=== PATIENT | male | born 1935 | race Caucasian/White ===

== ENCOUNTER 2016-09-06 14:58 | Inpatient (IN) ==
[2016-09-06] MEDS ORDERED: ATROPINE SULFATE PFS IVP PRN (15:43)
[2016-09-06] MEDS ORDERED: TYLENOL PO PRN (15:43)
[2016-09-06] MEDS ORDERED: NITROSTAT SL PRN ×2 (15:43→16:15)
[2016-09-06] MEDS ORDERED: VISTARIL INJ IM PRN (15:43)
[2016-09-06] MEDS ORDERED: MORPHINE 4 MG/ML SYRINGE IVP PRN (15:43)
[2016-09-06] MEDS ORDERED: SODIUM CHLORIDE 500 ML IV STA (15:50)
[2016-09-06] MEDS ORDERED: HUMULIN R SUBCUT PRN (15:51)
[2016-09-06 15:59] LABS: BASOPHILS % (AUTO) 0.8 % (0.0-3.0); EOSINOPHILS # (AUTO) 0.1 K/ul (0.0-0.7); EOSINOPHILS % (AUTO) 1.4 % (0.0-7.0); HEMATOCRIT 31.1 % (42.0-52.0); HEMOGLOBIN 9.9 g/dl (14.0-18.0); LYMPHOCYTES # (AUTO) 1.6 K/uL (0.60-3.4); LYMPHOCYTES % (AUTO) 31.5 (10.0-50.0); MEAN CORPUSCULAR HEMOGLOBIN 30.4 pg (27.0-31.0); MEAN CORPUSCULAR HGB CONC 31.8 (31.8-35.4); MEAN CORPUSCULAR VOLUME 95.4 fl (80.0-94.0); MONOCYTES # (AUTO) 0.4 K/uL (0.4-2.0); MONOCYTES % (AUTO) 8.2 (0-10); NEUTROPHILS # (AUTO) 2.8 K/ul (2.0-6.9); NEUTROPHILS % (AUTO) 56.1; PLATELET COUNT 341 10^3/uL (140-440); RED BLOOD COUNT 3.26 10^6/ul (4.70-6.10); WHITE BLOOD COUNT 4.98 K/ul (4.2-10.2)
[2016-09-06 16:03] VITALS: BMI 28.8
[2016-09-06] MEDS ORDERED: NORCO 5-325 PO PRN (16:15)
[2016-09-06 16:23] LABS: ALBUMIN/GLOBULIN RATIO 0.86; ANION GAP 15.2; BILIRUBIN,TOTAL 0.37 mg/dL (0.00-1.20); BUN/CREATININE RATIO 11.55; CALCIUM 8.8 mg/dL (8.2-10.2); CREATININE 1.99 mg/dL (0.60-1.10); POTASSIUM 4.2 mmol/L (3.5-5.1); TOTAL PROTEIN 6.5 g/dL (5.8-8.1); TROPONIN I 0.02 ng/ml (0.0000-0.4000)
--- NOTE | 2016-09-06 16:50 | DI ---
EXAM: Chest one view HISTORY: Hypertension, hypotension, congestive heart failure COMPARISON: 08/21/2016 TECHNIQUE: Single view of the chest was performed FINDINGS: No airspace consolidation. Biapical scarring. Lungs are hyperinflated. There is no pleu ral effusion or pneumothorax. The heart is top normal in size. The mediastinal contour is unchange d, noting atherosclerosis. There are median sternotomy wires.. There are no acute abnormalities of the bones. IMPRESSION: 1. No acute cardiopulmonary process. 2. Hyperinflated lungs may suggest chronic obstructive pulmonary disease
--- NOTE | 2016-09-06 16:54 | CT ---
EXAM: CT Abdomen without contrast. CT Pelvis without contrast. HISTORY: Abdominal pain, weakness. COMPARISON: 08/10/2016. TECHNIQUE: Multiple axial images of the abdomen and pelvis were obtained without intravenous contra st. Images were reformatted in the coronal plane. FINDINGS: Please note that evaluation of the abdominal and pelvic structures is limited due to lack of intravenous contrast. There has been previous sternotomy. Heart is enlarged. Small nodular densities in posterior left l ower lobe likely due to previous infection/inflammation. Degenerative changes seen in the spine. The liver, gallbladder, pancreas, spleen, and adrenal glands demonstrate normal contour. Right leonides l exophytic cortical lesion on axial image 29 is stable, possibly a cyst. Correlation with ultrasou nd advised. There is right renal cortical atrophy. No hydronephrosis detected. The bowel is normal in course and caliber without evidence for obstruction or inflammatory process. The appendix is normal. Urinary bladder is unremarkable. Clips seen adjacent to the prostate. No free fluid or free air identified. Atherosclerotic calcifications are relatively extensive bilater al iliac artery stents noted. No free fluid or free air identified. Spurring seen in the right ing uinal region which appears stable. Since the prior study, there has been no significant interval change. IMPRESSION: No acute abnormality within the abdomen or pelvis.
[2016-09-06] MEDS: PROTONIX PO SCH (17:12)
[2016-09-06] MEDS: XANAX PO SCH (20:46)
[2016-09-06] MEDS: NEURONTIN PO SCH (20:47)
[2016-09-06] MEDS ORDERED: NAMENDA PO SCH (21:00)
[2016-09-06] MEDS ORDERED: LIPITOR PO SCH (21:00)
[2016-09-06 23:51] LABS: TROPONIN I 0.01 ng/ml (0.0000-0.4000)
[2016-09-07] MEDS: PROTONIX PO SCH (06:13)
[2016-09-07] MEDS ORDERED: ASPIRIN EC PO SCH (08:00)
[2016-09-07] MEDS ORDERED: LEXAPRO PO SCH (09:00)
[2016-09-07] MEDS ORDERED: NON-FORMULARY MEDICATION (Fenofibrate Nanocrystallized [Fenofibrate] 145 MG) PO SCH ×22 (09:00)
[2016-09-07] MEDS ORDERED: PLAVIX PO SCH (09:00)
[2016-09-07] MEDS ORDERED: NAMENDA PO SCH (09:00)
[2016-09-07] MEDS ORDERED: JANUVIA PO SCH (09:00)
[2016-09-07] MEDS ORDERED: CLARITIN PO SCH (09:00)
[2016-09-07] MEDS ORDERED: TRIGLIDE PO SCH (09:00)
[2016-09-07] MEDS ORDERED: ARICEPT PO SCH (09:00)
[2016-09-07] MEDS: XANAX PO SCH (10:44)
[2016-09-07] MEDS: NEURONTIN PO SCH (10:44)
[2016-09-07 12:11] LABS: OCCULT BLOOD INTERNAL QC 1 INTERNAL QC VALID; OCCULT BLOOD INTERNAL QC 2 INTERNAL QC VALID; OCCULT BLOOD INTERNAL QC 3 INTERNAL QC VALID; OCCULT BLOOD SAMPLE 1 POSITIVE (NEGATIVE); OCCULT BLOOD SAMPLE 2 NO SPECIMEN RECEIVED (NEGATIVE); OCCULT BLOOD SAMPLE 3 NO SPECIMEN RECEIVED (NEGATIVE)
[2016-09-07 12:13] LABS: ADD URINE MICROSCOPIC NO; BILIRUBIN,URINE Negative (NEGATIVE); KETONES,URINE Negative (NEGATIVE); LEUKOCYTE ESTERASE ,URINE Negative (NEGATIVE); NITRITE,URINE Negative (NEGATIVE); PROTEIN,URINE Negative (NEGATIVE); URINE, BLOOD Negative (NEGATIVE)
--- NOTE | 2016-09-07 13:00 | PCM.PROG ---
Attending Provider: ATTENDING PROVIDER: Dr. CARLIE ALEXANDER DATE OF SERVICE: 09/07/16 SUBJECTIVE: This 80 year old WHITE/ M was hospitalized 09/06/16. The patient is admitted with hypotension most likely from medications. With fluid bolus, blood pressure became normal. Hemoglobin is steady. Discussed chcf placement with the patient for strengthening, PT/OT. The patient voices understanding and is in agreement. REVIEW OF SYSTEMS: CONSTITUTIONAL: No fever, no chills. ENDOCRINE: No weight loss or weight gain. HEENT: No sinus drainage, no sore throat. CVS: No angina symptoms. No CHF symptoms. No palpitations. No atypical chest pain for CAD. No shortness of breath. RESPIRATORY: No cough, no hemoptysis. GI: No melena. No abdominal pain. No nausea, no vomiting. : No hematuria. No polyuria. SKIN: No rash. No wounds. MUSCULOSKELETAL: No pain. 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 No headache. No double vision. PSYCHIATRIC: Not anxious; no depression. No suicidal thoughts. No homicidal thoughts. PHYSICAL EXAMINATION: GENERAL: Lying in bed in no distress. VITAL SIGNS: Temperature 97.0 F, Pulse 57, Respiratory Rate 20, BP 120/67, Pulse Ox 100% HEENT: Normocephalic, atraumatic. Mucosa is dry, pallor positive. NECK: No JVP, no carotid bruit. No lymphadenopathy. CARDIAC: S1, S2, no S3. No murmur, gallop or regurgitation. LUNGS: Decreased entry. Clear to auscultation. ABDOMEN: Soft, non-tender. Bowel sounds active. No rigidity, guarding or CVA tenderness. EXTREMITIES: No clubbing, cyanosis or edema. NEUROLOGIC: Awake, alert and oriented x3. LYMPHATIC: No palpable lymph nodes SKIN: Not dry. Intact. MUSCULOSKELETAL: No joint swelling. LAB REVIEW: 09/06/16 15:50 09/06/16 15:50 09/06/16 23:10: Total Creatine Kinase 27, Myoglobin 42, Troponin I 0.0100 09/06/16 15:50: WBC 4.98, RBC 3.26 L, Hgb 9.9 L, Hct 31.1 L, MCV 95.4 H, MCH 30.4, MCHC 31.8, RDW Coeff of Tabatha 15.5 H, Plt Count 341, Immature Gran % (Auto) 2.0, Neut % (Auto) 56.1, Lymph % (Auto) 31.5, [place] % (Auto) 8.2, Eos % (Auto) 1.4, Baso % (Auto) 0.8, Immature Gran # (Auto) 0.1, Neut # 2.8, Lymph # 1.6, [place] # 0.4, Eos # 0.1, Baso # 0.0, D-Dimer 1.81, Sodium 139, Potassium 4.2, Chloride 105, Carbon Dioxide 23, Anion Gap 15.2, BUN 23 H, Creatinine 1.99 H, Estimated GFR (MDRD) 32.00, BUN/Creatinine Ratio 11.55, Glucose 62 L, Calcium 8.8, Total Bilirubin 0.37, AST 16, ALT 16, Alkaline Phosphatase 38 L, Total Creatine Kinase 29, Myoglobin 46, Troponin I 0.0200, B-Natriuretic Peptide 162 H , Total Protein 6.5, Albumin 3.0 L, Globulin 3.5, Albumin/Globulin Ratio 0.86 ASSESSMENT: 1. Status post hypotension secondary to medications. 2. COPD. 3. CHF, stable. 4. Hypertension. 5. Dyslipidemia. 6. Osteoarthritis. 7. DJD spine. 8. Anemia, status post recent blood transfusion (last week admission). 9. CAD. 10. CABG. PLAN: 1. Discharge to [place] - will call family to see if there is preference as to which NH. 2. PT/OT evaluate and treat. 3. CBC and CMP in one week. 4. Cardiac and Healthy Diet. 5. Legs elevated when resting. 6. Duonebs twice a day. 7. Lasix every other day. 8. Stool for occult blood prior to discharge. 9. Continue Protonix. Plan and coordination of the patient's care discussed in the presence of Aircraft Painter Apprentice and nurse. CONDITION: STABLE SCRIBED BY: CARLENE BERNSTEIN Hotel Maintenance Worker scribed while in presence of service performed by Dr. CARLIE ALEXANDER on 09/07/16 (0230)
[2016-09-07 14:46] VITALS: BP 101/58; TEMP 98
--- NOTE | 2016-09-07 14:53 | CM.DICTOOL ---
ADMISSION: 09/06/16 14:58 DISCHARGE: 09/07/16 TO [facility] DATE OF SERVICE: 09/07/16 DIAGNOSIS: HYPOTENSION COPD CAD DILATED ISCHEMIC CARDIOMYOPATHY BY HISTORY CHF DYSLIPIDEMIA HYPERTENSION ANEMIA HISTORY OF B12 DEFICIENCY DIABETES, TYPE 2 DIABETIC NEUROPATHY PERIPHERAL ARTERIAL DISEASE COPD (FORMER SMOKER) RENAL AZOTEMIA DEMENTIA DEPRESSION/ANXIETY PROSTATE CANCER ARTHRITIS CABG, 1992 CARDIAC STENT APPLICATION, 1992, 2001 FEM/POP STENTS- 5-10 YEARS AGO RIGHT KNEE SCOPE BILATERAL CATARACT EXTRACTION, 2005 LAST VITALS Temp Pulse Resp BP Pulse Ox 97.4 F L 63 16 120/67 100 09/07/16 10:00 09/07/16 10:00 09/07/16 10:00 09/07/16 10:00 09/07/16 10:00 ACTIVE MEDICATIONS Acetaminophen/Hydrocodone Bitart (Lotus 5-325) 1 tab PO Q8H PRN PRN Reason: pain Alprazolam (Xanax) 0.25 mg PO BID [facility] Last Admin: 09/07/16 10:44 Dose: 0.25 mg Aspirin (Aspirin Ec) 81 mg PO DAILYWM [facility] Last Admin: 09/07/16 10:43 Dose: 81 mg Atorvastatin Calcium (Lipitor) 10 mg PO BEDTIME [facility] Last Admin: 09/06/16 20:47 Dose: 10 mg Clopidogrel Bisulfate (Plavix) 75 mg PO DAILY [facility] Last Admin: 09/07/16 10:44 Dose: 75 mg Donepezil HCl (Aricept) 10 mg PO DAILY [facility] Last Admin: 09/07/16 10:43 Dose: 10 mg Escitalopram Oxalate (Lexapro) 10 mg PO DAILY [facility] Last Admin: 09/07/16 10:44 Dose: 10 mg Fenofibrate (Triglide) 160 mg PO DAILY [facility] Last Admin: 09/07/16 10:44 Dose: 160 mg Gabapentin (Neurontin) 300 mg PO TID [facility] Last Admin: 09/07/16 10:44 Dose: 300 mg Loratadine (Claritin) 10 mg PO DAILY [facility] Last Admin: 09/07/16 10:43 Dose: 10 mg Memantine (Namenda) 10 mg PO DAILY [facility] Last Admin: 09/07/16 10:44 Dose: 10 mg Nitroglycerin (Nitrostat) 0.4 mg SL Q5MIN X 3 DOSES PRN PRN Reason: Chest Pain Pantoprazole Sodium (Protonix) 40 mg PO BIDAC [facility] Last Admin: 09/07/16 06:13 Dose: 40 mg Sitagliptin Phosphate (Januvia) 50 mg PO DAILY [facility] Last Admin: 09/07/16 10:43 Dose: 50 mg ALLERGIES megestrol [From Megace] Adverse Reaction (Mild, Verified 08/21/16 16:24) Diarrhea Penicillins Adverse Reaction (Unknown, Verified 08/21/16 16:24) Unknown procaine [From Novocain] Adverse Reaction (Unknown, Verified 08/21/16 16:24) Unknown NEW PRESCRIPTIONS: DUONEBS BID LASIX 20 MG PO QOD, (MO, WED, FRI, SAT) PROTONIX 40 MG PO BID HUMULIN INSULIN (REGULAR) FOR SLIDING SCALE COVERAGE (DR. PURVISS) PRN SMOKING: FORMER SMOKER DISEASE SPECIFIC EDUCATION: SHORT TERM SENIOR LIVING ADMISSION PT/OT MEDICATIONS NEW MEDICATIONS ACTIVITY LAB REVIEW: 09/06/16 15:50 09/06/16 15:50 09/06/16 23:10: Total Creatine Kinase 27, Myoglobin 42, Troponin I 0.0100 09/06/16 15:50: WBC 4.98, RBC 3.26 L, Hgb 9.9 L, Hct 31.1 L, MCV 95.4 H, MCH 30.4, MCHC 31.8, RDW Coeff of Tabatha 15.5 H, Plt Count 341, Immature Gran % (Auto) 2.0, Neut % (Auto) 56.1, Lymph % (Auto) 31.5, [place] % (Auto) 8.2, Eos % (Auto) 1.4, Baso % (Auto) 0.8, Immature Gran # (Auto) 0.1, Neut # 2.8, Lymph # 1.6, [place] # 0.4, Eos # 0.1, Baso # 0.0, D-Dimer 1.81, Sodium 139, Potassium 4.2, Chloride 105, Carbon Dioxide 23, Anion Gap 15.2, BUN 23 H, Creatinine 1.99 H, Estimated GFR (MDRD) 32.00, BUN/Creatinine Ratio 11.55, Glucose 62 L, Calcium 8.8, Total Bilirubin 0.37, AST 16, ALT 16, Alkaline Phosphatase 38 L, Total Creatine Kinase 29, Myoglobin 46, Troponin I 0.0200, B-Natriuretic Peptide 162 H , Total Protein 6.5, Albumin 3.0 L, Globulin 3.5, Albumin/Globulin Ratio 0.86 09/06/16 12:03: Urine Color Yellow, Urine Clarity Clear, Urine pH 6.0, Ur Specific Fence 1.020, Urine Protein Negative, Urine Glucose (UA) Negative, Urine Ketones Negative, Urine Blood Negative, Urine Nitrite Negative, Urine Bilirubin Negative, Urine Urobilinogen 1.0, Ur Leukocyte Esterase Negative, Stl Occult Blood (IFOB) Positive, Stool Occult Blood #2 No specimen received, Stool Occult Blood #3 No specimen received PLAN: DISCHARGE TO [facility] DR. GRANT/BENJAMIN WILL FOLLOW THE PATIENT IN ONE WEEK DURING USUAL SENIOR LIVING ROUNDS RESUME HOME MEDICATIONS AT THE SENIOR LIVING PER LIST PROVIDED BY THE NURSING STAFF DO NOT GIVE THE LOPRESSOR 50 MG PO DAILY NEW MEDICATIONS: LASIX 20 MG PO QOD (SUN, SUN, SUN AND SATURDAYS) DUONEBS BID PROTONIX 40 MG PO BID HUMULIN R USE FOR DR. 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 HE IS FORGETFUL AND OCCASIONALLY BECOMES DISORIENTED. HE IS REORIENTED EASILY. HE REQUIRES LITTLE ASSISTANCE FOR ADL'S AND CAN FEED HIMSELF. HE WALKS WITH USE OF A CANE OR WALKER AND HAS BECOME UNSTEADY ON HIS FEET. HE CURRENTLY RESIDES AT HOME, BUT IS AGREEBLE FOR SHORT TERM ADMISSION TO [facility] FOR PT/OT. HE WOULD LIKE TO BE ABLE TO RETURN TO HIS HOME WHERE HIS SPOUSE AND DAUGHTER ARE VERY SUPPORTIVE OF HIS NEEDS. HIS SKIN TURGOR IS FAIR AND INTACT. HE HAS NO DECUBITUS ULCERS AT DISCHARGE. HIS V/S ARE NOW WITHIN ACCEPTABLE RANGES. HE IS STABLE FOR DISCHARGE TO THE SENIOR LIVING. WE WILL CONTINUE TO FOLLOW MR. BREWER DURING HIS STAY AT THE SENIOR LIVING. CARLIE ALEXANDER M.D.
--- NOTE | 2016-09-15 07:25 | DS ---
DATE OF SERVICE: 09/07/16 FINAL DIAGNOSIS: 1. HYPOTENSION, MOSTLY MEDICATION RELATED FROM LASIX 2. COPD 3. CHF 4. DILATED ISCHEMIC CARDIOMYOPATHY 5. CAD 6. DYSLIPIDEMIA 7. HYPERTENSION 8. ANEMIA 9. HISTORY OF B12 DEFICIENCY 10. DIABETES MELLITUS TYPE 2 11. DIABETIC NEUROPATHY 12. PERIPHERAL ARTERIAL DISEASE 13. COPD 14. RENAL AZOTEMIA 15. DEMENTIA 16. DEPRESSION/ANXIETY 17. PROSTATE CANCER 18. ARTHRITIS 19. BYPASS SURGERY 20. CARDIAC STENT APPLICATION 21. FEM/POP 22. RIGHT KNEE SCOPE 23. BILATERAL CATARACT EXTRACTION VITAL SIGNS (AT TIME OF DISCHARGE): BP 120/67, respiratory rate 16, heart rate 63, temperature 97.4, saturation 100 % on 2L. DISCHARGE INSTRUCTIONS: Followup appointment MEDICATIONS AT DISCHARGE: 1. [place] 5 mg q.8hr 2. Xanax 3. Aspirin 4. Lipitor 5. Plavix 6. Aricept 7. Lexapro 8. Triglide 9. Neurontin 10. Claritin 11. Namenda 12. Nitrostat 13. Protonix 14. Januvia NEW PRESCRIPTIONS: 1. Duonebs b.i.d. 2. Lasix 20 mg every other day 3. Protonix 40 mg p.o. b.i.d. 4. Humulin Insulin Regular for sliding scale ALLERGIES: MEGACE, PENICILLIN, PROCAINE AND NOVACAINE DIET INSTRUCTIONS: Cardiac and healthy ACTIVITY: He may participate in [facility] activities. PT/OT - please evaluate and treat. Keep legs elevated when resting. SMOKING: Former smoker; has quit. DISEASE SPECIFIC EDUCATION: 1. Short-term [facility] 2. Anemia 3. GI bleed has been discussed 4. Antibiotics and diarrhea discussed 5. Medication side effects discussed HOSPITAL COURSE: This 88-year-old male was recently admitted to the hospital by Dr. Bright for weakness, tiredness, lower extremity weakness, CHF and COPD, found to have severe hypoglycemia which was treated with Dr. Bright did the echocardiogram which showed paradoxical septal wall motion, enlarged right ventricle, left atrial and left ventricular cavity. Left ventricular ejection fraction was 40%. PFTs were done, which showed moderate COPD with FEV1, FVC 66 and at that time the patient was discharged on Lasix. After going home the patient was doing fine for one day then later started feeling weak and tired and had one to two days of diarrhea two to three times then blood pressure dropped to below 100, not able to walk, weak and tired. As the patient was not feeling better, the patient's daughter brought the patient to the office and his systolic blood pressure was 86, rechecked manually, weakness and tiredness. At that time, the patient was admitted to the hospital again. Hemoglobin was 9.9 which was steady. It was 9.5 at time of discharge. D. dimer was negative 1.81. Chemistries : BUN 23, creatinine 1.99. At that time it was 20 and 1.47, a little bit worse than what it was. Stool for occult blood test was done which was positive. The patient did have one unit of blood transfusion on the previous admission and hemoglobin was stable ever since. CT of abdomen and pelvis was done which did not show any acute pathology. Chest x-ray was negative. Once we stopped Lasix and blood pressure medication, the patient was doing well. The blood pressure came back normal and did not have any problems Meanwhile, when we talked with the family, they mentioned that they wanted the patient to have physical and occupational therapy and daughter cannot take care of him as she already has her own problems. At that time, the patient was evaluated for [facility] and was accepted at the [facility] and discharged to the [facility]. TIME SPENT: More than 45 minutes today. PINKY
--- NOTE | 2016-09-15 11:03 | HP ---
DATE OF SERVICE: 09/06/16 REASON FOR HOSPITALIZATION/HISTORY OF PRESENT ILLNESS: Weakness- can't stand. The patient was in hospital last week for same reason with Dr. Bright. Medication change. Blood thinner one time and discontinued. Still not better, not able to walk, weak and tired. Been having diarrhea, two times a day /watery. No blood stools. No nausea/ vomiting REVIEW OF SYSTEMS: CONSTITUTIONAL: No fever, no fatigue. HEENT: No sinus drainage, no sore throat. RESPIRATORY: No cough, no congestion. CARDIOVASCULAR: No atypical chest pain for coronary artery disease. No angina , CHF symptoms, palpitations. Shortness of breath, stable. GASTROINTESTINAL: No melena or abdominal pain. No GERD. GENITOURINARY: No hematuria, no prostatism, no polyuria. ARCHITECTURAL ENGINEER: No blackout, no dizziness, no headache, no double vision. Gait- Wheelchair. MUSCULOSKELETAL: Osteoarthritis pain, no joint swelling. ENDOCRINE: No weight loss, no weight gain. SKIN: Not dry, no rash. PSYCHIATRIC: Anxious, no depression, no suicidal thoughts, no homicidal thoughts. SOCIAL HISTORY: Marital Status: . Alcohol Usage: Some times. Tobacco Usage: Chews. Family History not significant. PAST SURGICAL HISTORY: Coronary artery bypass grafting Status Post Fem Pop MEDICATIONS: Lopressor 50mg PO daily Nitrostat 0.4mg SL Aspirin 81mg PO daily Claritin 10mg PO daily Xanax 0.25mg PO twice a day Aricept 10mg PO daily Hydrocodone-Acetaminophen 5-325 one tablet PO Q 8 hours PRN Gabapentin 300mg PO three times a day Fenofibrate 145mg PO daily Plavix 75mg PO daily Lipitor 10mg PO bedtime Lexapro 10mg PO daily Lasix 20mg PO daily Zestril 50mg PO daily Namenda 10mg PO bedtime Januvia 50mg PO daily ALLERGIES: Megestrol Penicillins Procaine PHYSICAL EXAMINATION: V/S: Pulse 56, blood pressure 80/44/ right arm 80/50 and Oxygen saturation 99% . GENERAL APPEARANCE: Oriented times three. Sitting in wheelchair. HEENT: Normal. Pallor positive. NECK: No JVP, no bruits. RESPIRATORY: Lungs decreased entry. CARDIOVASCULAR: S1, S2, no S3, no murmurs. No cyanosis, clubbing. No ascites. GI/ABDOMEN: No tenderness. Bowel sounds are hyperactive. EXTREMITIES: edema, pulses +1, equal. ARCHITECTURAL ENGINEER: Deep tendon reflexes, sensory, motor and gait all normal. RECTAL: Colonoscopy screening- patient refused/PROSTATE: 11-16 10.51 . ASSESSMENT: 1. Hypotension rule out medication side effects, gastroenteritis or sepsis. 2. COPD 3. Congestive heart failure, ejection fracture 40% 4. Coronary artery disease, status post stent 1992 and 2001 5. Hypertension/ Dilated cardiomyopathy 6. Diabetes mellitus type two labile. 7. Alzheimer's Dementia 8. Anemia 9. Diabetes Mellitus Neuropathy PLAN: 1. Admit to regular floor 2. Telemetry protocol 3. CBC, CMP, U/A, BNP and D-dimer 4. Stool for occult blood 5. Sodium Chloride- normal saline 500ml bolus then Sodium Chloride 6. Stop Lisinopril, Metoprolol and Lasix 7. Protonix 40mg PO twice a day 8. Accu-checks with coverage 9. Resume rest home medication 10. CT of abdomen and pelvis without contrast Patient is DNR TIME SPENT: More than 70 minutes. KEELEYD
== END 2016-09-07 15:39 | DRG 312 ==
LOC: MEDSURG B 14:58
PROVIDERS: ADMIT Emergency Medicine; ATTEND Emergency Medicine
DX: I95.2 Hypotension due to drugs (principal); I42.0 Dilated cardiomyopathy; T50.1X5A Adverse effect of loop [high-ceiling] diuretics, initial encounter; J44.9 Chronic obstructive pulmonary disease, unspecified; I50.9 Heart failure, unspecified; I25.5 Ischemic cardiomyopathy; I25.10 Atherosclerotic heart disease of native coronary artery without angina pectoris; I10 Essential (primary) hypertension; E78.5 Hyperlipidemia, unspecified; D64.9 Anemia, unspecified; E53.8 Deficiency of other specified B group vitamins; E11.40 Type 2 diabetes mellitus with diabetic neuropathy, unspecified; I73.9 Peripheral vascular disease, unspecified; R79.89 Other specified abnormal findings of blood chemistry; F03.90 Unspecified dementia, unspecified severity, without behavioral disturbance, psychotic disturbance, mood disturbance, and anxiety; F41.8 Other specified anxiety disorders; Z79.01 Long term (current) use of anticoagulants; Z79.84 Long term (current) use of oral hypoglycemic drugs; Z79.899 Other long term (current) drug therapy
CPT/HCPCS: 36415; 80053; 81001; 82272; 82550; 82962; 83874; 83880; 84484; 85025; 85379; 93005; 93010

== ENCOUNTER 2016-09-14 06:28 | Emergency (ER) | payer OTHER ==
--- NOTE | 2016-09-14 06:48 | ED.PDOC ---
General Stated Complaint: i fell Time Seen by Physician: 06:46 Mode of Arrival: Ambulance Information Source: EMT Exam Limitations: No limitations Nursing and Triage Documentation Reviewed and Agree: Yes <BRYANT ACOSTA - Last Filed: 09/14/16 06:49> Stated Complaint: @0545-PT IS RESIDENT AT [facility], STATES GOT UP TO GO TO BATHROOM AND FELL FALLING ONTO LEFT SIDE. PT C/O PAIN TO (7th)LEFT RIB AREA AND MID LEFT BACK. DENIES ANY FURTHER PAIN STATES DID NOT HIT HEAD OR HAVE ANY LOC SKIN TEAR TO RIGHT ELBOW DRESSED BY EMS, STATES JUST A LITTLE SORE 97.8 104 20 94 104/59 4/10 FALL/LEFT RIB PAIN[End]PATIENT HAS A DRESSED LACERATION TO THE LEFT ELBOW. <ASHLEY IYER JR - Last Filed: 09/14/16 09:38> ED Provider: [facility]SH[facility] JR [facility] (ASHLEY IYER JR) Chief Complaint: Fall Primary Care Provider: SAGN GRANT [facility] (ASHLEY IYER JR) Trauma/Injury Complaint Exam - Truncal Trauma Complaint/Exam Location of Pain: Reports: Left, Posterior Onset: 12hrs Symptoms Are: Still present Onset of Pain: Reports: Immediate Initial Severity: Mild Current Severity: Mild Mechanism: Reports: Fall Aggravating: Reports: Movement, Deep breathing, Cough Alleviating: Reports: None Associated Signs and Symptoms: Denies: Short of air, Chest pain, Cough, Hematuria, Abdominal pain, Fever, Nausea, Vomiting Related Surgical History: Reports: None Immobilization Removed Post Exam: No Vertebral Tenderness Present: No Vertebral Deformity Present: No Trachial Deviation Present: No JVD Present: No Crepitus Present: No Diminished Breath Sounds: No Reproducible Pain at: left chest wall Muffled Heart Sounds Present: No Paradoxical Chest Wall Movement Present: No Abdominal Guarding Present: No Abdominal Rigidity Present: No Referred Shoulder Pain (Kehr's Sign) Present: No Skin Findings: Present: Contusion, Tenderness Differential Diagnoses: Chest Wall Contusion <BRYANT ACOSTA - Last Filed: 09/14/16 06:49> Review of Systems - Review Of Systems Constitutional: Reports: No symptoms Eyes: Reports: No symptoms Ears, Nose, Mouth, Throat: Reports: No symptoms Respiratory: Reports: No symptoms Cardiac: Reports: No symptoms GI: Reports: No symptoms : Reports: No symptoms Musculoskeletal: Reports: No symptoms Skin: Reports: No symptoms Neurological: Reports: No symptoms Endocrine: Reports: No symptoms Hematologic/Lymphatic: Reports: No symptoms All Other Systems: Reviewed and Negative <CHERYLOliviaBRYANT SERNA - Last Filed: 09/14/16 06:49> Past Medical History - Past Medical History Endocrine: Reports: Unknown Cardiovascular: Reports: Unknown Respiratory: Reports: Unknown Hematological: Reports: Unknown Gastrointestinal: Reports: Unknown Genitourinary: Reports: Unknown Neuro/Psych: Reports: Unknown Musculoskeletal: Reports: Unknown Cancer: Reports: Unknown - Family History Family History: Reports: Unknown - Social History Smoking Status: Former smoker Lives: With family, In Long Term <BRYANT ACOSTA - Last Filed: 09/14/16 06:49> - Past Medical History Endocrine: Reports: DM 2 ([Januvia]50mgPODAILY;[Humulin R]1-100 PRN ), Dyslipidemia ( [Fenofibrate] 145 mg PO DAILY 08/21/16 ; [Lipitor] 10 mg PO BEDTIME 08/21/16) Cardiovascular: Reports: CAD (aspirin plavix), Hypertension (HYPOTENSION; PERIPHERAL VASCULAR DISEASE;;[Zestril] 5 mg PO DAILY), CHF ([Lasix Tab] 20 mg PO MWFSA), Other ([Nitrostat] 0.4 mg SL Q5MIN) Respiratory: Reports: COPD ([Duoneb] 1 vial NEB RTBID), Other ([Claritin] 10 mg PO DAILY) Gastrointestinal: Reports: Other ( [Protonix] 40 mg PO BIDAC) Neuro/Psych: Reports: Anxiety ([Xanax] 0.25 mg PO BID), Depression ([Lexapro] 10 mg PO DAILY), Dementia ( [Aricept] 10 mg PO DAILY 08/21/16 ;;[Namenda] 10 mg PO BEDTIME), Other (ATAXIA ) Musculoskeletal: Reports: Other (Gabapentin 300 mg PO TID 08/21/16;;Hydrocodon- Acetaminophen 5-325) - Surgical History General Surgical History: Reports: CABG (AORTOCORONARY BYPASS GRAFT) - Family History Family History: Reports: Unknown - Social History Lives: In Long Term <ASHLEY IYER JR - Last Filed: 09/14/16 09:38> Physical Exam - Physical Exam Appearance: Well-appearing, No pain distress, Well-nourished Pain Distress: Mild Eyes: ELIAS, EOMI, Conjunctiva clear ENT: Ears normal, Nose normal, Oropharynx normal Neck: Supple Respiratory: Airway patent, Breath sounds clear, Breath sounds equal, Respirations nonlabored Cardiovascular: RRR, Pulses normal, No rub, No murmur GI/: Soft Musculoskeletal: Normal strength, ROM intact, No edema, No calf tenderness Skin: Warm, Dry, Normal color Neurological: Sensation intact, Motor intact, Reflexes intact, Cranial nerves intact, Alert, Oriented Psychiatric: Affect appropriate, Mood appropriate <BRYANT ACOSTA - Last Filed: 09/14/16 06:49> Interpretation - Radiology Interpretation Radiology Interpretation By: Radiologist Radiology Results: Negative Exam Interpreted: CT Scan (head-atroph, C T L P-spine all with djd, pelvis with elsie ililac art stents;thorax-no acute injury-fibrottic changes and MARTI nodules- rec repeat in 4 months) <ASHLEY IYER JR - Last Filed: 09/14/16 09:38> Physician Notification - Case Discussed Physician Notified: dr [email or web address] Time of Notification: 07:00 <BRYANT ACOSTA - Last Filed: 09/14/16 06:49> Critical Care Note - Critical Care Note Total Time (mins): 5 <ASHLEY IYER JR - Last Filed: 09/14/16 09:38> Departure <BRYANT ACOSTA - Last Filed: 09/14/16 06:49> - Departure Time of Disposition: 08:22 (9:25) Pt referred to PMD for follow-up: Yes <ASHLEY IYER JR - Last Filed: 09/14/16 09:38> - Departure Disposition: HOME SELF-CARE Discharge Problem: Falls Contusion Qualifiers: Encounter type: initial encounter Contusion area: thoracic wall Contusion of thoracic wall detail: front wall of thorax Laterality: left Qualifier Code: ( S20.212A) Contusion of left front wall of thorax, initial encounter Skin tear of elbow without complication Qualifiers: Encounter type: initial encounter Laterality: right Qualifier Code: (S51.011A) Laceration without foreign body of right elbow, initial encounter Instructions: Fall Prevention for Older Adults (ED), Skin Tear (ED), Contusion in Adults (ED) Condition: Good Additional Instructions: neurochecks Q 2 hours for 12 hours then daily for two weeks chexck arm daily change dressing if becomes soiled remove dressing if wet and discontinue in 7-10 days resume prior orders recheck PMD one week note nodules on CT chest Allergies/Adverse Reactions: Allergies megestrol [From Megace] Adverse Reaction (Mild, Verified 09/14/16 06:55) Diarrhea Penicillins Adverse Reaction (Unknown, Verified 09/14/16 06:55) Unknown procaine [From Novocain] Adverse Reaction (Unknown, Verified 09/14/16 06:55) Unknown Home Medications: Ambulatory Orders Alprazolam [Xanax] 0.25 mg PO BID 08/21/16 Aspirin [Aspirin EC] 81 mg PO DAILYWM 08/21/16 Atorvastatin Calcium [Lipitor] 10 mg PO BEDTIME 08/21/16 Clopidogrel Bisulfate [Plavix] 75 mg PO DAILY 08/21/16 Donepezil HCl [Aricept] 10 mg PO DAILY 08/21/16 Fenofibrate Nanocrystallized [Fenofibrate] 145 mg PO DAILY 08/21/16 Gabapentin 300 mg PO TID 08/21/16 Hydrocodone/Acetaminophen [Hydrocodon-Acetaminophen 5-325] 1 tab PO Q8H PRN Loratadine [Claritin] 10 mg PO DAILY 08/21/16 Nitroglycerin [Nitrostat] 0.4 mg SL Q5MIN X 3 DOSES PRN 08/21/16 Escitalopram Oxalate [Lexapro] 10 mg PO DAILY #30 tablet 08/24/16 Sitagliptin Phosphate [Januvia] 50 mg PO DAILY 09/06/16 Furosemide [Lasix Tab] 20 mg PO MOWEFRSA #16 tablet 09/07/16 Insulin Regular, Human [Humulin R] 1 - 100 unit SUBCUT DAILY PRN #1 vial Ipratropium/Albuterol Neb [Duoneb] 1 vial NEB RTBID #60 vial.neb 09/07/16 Pantoprazole Sodium [Protonix] 40 mg PO BIDAC #60 tablet. 09/07/16 Glipizide 5 mg PO DAILY 09/14/16 Lisinopril [Zestril] 20 mg PO DAILY 09/14/16 Loperamide HCl [Imodium] 2 mg PO DIRECTED PRN 09/14/16 Metformin HCl 1,000 mg PO BID 09/14/16
[2016-09-14 06:55] VITALS: BP 104/59; TEMP 97.8; BMI 25.6
--- NOTE | 2016-09-14 07:50 | CT ---
EXAM: CT head without contrast. HISTORY: Initial presentation for head trauma due to a fall. COMPARISON: 08/21/2016. TECHNIQUE: Multiple axial images of the brain were obtained from the skull base through the vertex without intravenous contrast. FINDINGS: There is no intracranial hemorrhage or extraaxial collection. The azul-white differentia tion is maintained without evidence for acute large vascular territory infarction. There are areas of periventricular and subcortical white matter low attenuation. The cortical sulci and cerebral ve ntricles are symmetrically enlarged. The basal cisterns are well visualized. There is no hydroceph alus, mass effect, or midline shift. The ethmoid sinuses demonstrate mild mucosal thickening. Othe rwise, the paranasal sinuses and mastoid air cells are clear. The calvarium is intact. Since the p rior study, there has been no significant interval change. IMPRESSION: 1. No acute intracranial abnormality. 2. Chronic small vessel ischemic changes and atrophy.
--- NOTE | 2016-09-14 07:52 | CT ---
EXAM: CT of the cervical spine without contrast History: Trauma. Technique: Multiplanar CT images through the cervical spine were obtained without the administratio n of IV contrast Findings: Atherosclerotic vascular calcifications. Biapical lung scarring. Emphysema seen within the upper lungs. The visualized airway remains patent. No acute fracture or subluxation. Osteopenia. No prevertebral soft tissue swelling. The predental space is not widened. Severe degenerative disc disease at C5-6 with endplate sclerosis and osteoph yte formation. Moderate degenerative disc disease at C6-7. Multilevel bilateral bony neural forami nal narrowing secondary to uncovertebral and facet hypertrophy. Multilevel bilateral bony central c anal stenosis which is no significant and moderate to severe at C5-6 secondary to posterior disc ost eophyte complex. Impression: 1. No acute osseous abnormality of the cervical spine. 2. Degenerative changes with moderate to severe bony central canal stenosis at C5-6.
--- NOTE | 2016-09-14 07:53 | CT ---
EXAM: CT lumbar spine without contrast. HISTORY: Fall with left rib pain and history of prostate cancer COMPARISON: CT abdomen pelvis 09/06/2016 TECHNIQUE: Serial axial images of the spine were obtained from the lower thoracic spine through the pelvis without contrast. These were viewed in multiple planes. FINDINGS: Vertebral bodies demonstrate no compression fracture or subluxation. Vertebral body heig ht and disc space are maintained. There is multilevel scattered facet arthropathy. The posterior p rocesses are unremarkable. The sacroiliac junction is intact. There are anterior disc osteophytes in the lower thoracic spine. L1-L2: Small broad-based disc bulge with no central or neural foraminal narrowing. L2-L3: Broad-based disc bulge and facet arthropathy with mild central and no neural foraminal narrow ing. L3-L4: There is a broad-based disc bulge and facet arthropathy with minimal central and neural luke inal narrowing. L4-L5: There is a broad-based disc bulge, facet arthropathy and ligamentum flavum hypertrophy. This contributes to moderate central and bilateral mild neural foraminal narrowing. L5-S1: Broad-based disc bulge with no central or neural foraminal narrowing. Limited views of the soft tissues demonstrates scattered atherosclerotic disease with a right iliac arterial stent in place. There is mild right lower lobe atelectasis. There is a poorly defined exop hytic low attenuation lesion measuring 0.9 cm from the right kidney with Hounsfield units consistent with a cyst. IMPRESSION: 1. No acute compression fracture or subluxation. 2. Multilevel degenerative disease with central and neural foraminal narrowing most pronounced at L 4-L5 with moderate central and bilateral mild neural foraminal narrowing. If there is further evalu ation clinically indicated, MRI is recommended. 3. Scattered atherosclerotic disease of the right iliac arterial stent and bilateral lower lobe ate lectasis.
--- NOTE | 2016-09-14 07:58 | CT ---
EXAM: CT thoracic spine. HISTORY: Fall. TECHNIQUE: CT thorax without contrast. Detailed axial sections. Coronal and sagittal re-formation s. FINDINGS: Comparison may be made to 08/10/2016. FINDINGS: Bones appear demineralized. No acute fracture involving the thoracic spine is seen. The re is no significant loss of vertebral body height. No spondylolisthesis. Mild to moderate degener ative changes of the spine lead to areas of mild central canal stenosis at the thoracic level, great er at the lower cervical spine level. See also same day CT thorax, CT cervical spine and CT lumbar spine reports. IMPRESSION: No acute fracture or subluxation at the level of the thoracic spine.
--- NOTE | 2016-09-14 07:58 | CT ---
EXAM: CT pelvis without contrast HISTORY: Status post fall. COMPARISON: CT abdomen pelvis 09/06/2016 TECHNIQUE: Serial axial images of the pelvis were obtained without contrast. These were viewed in multiple planes. FINDINGS: There is no displaced fracture of the pelvis. There is mild degenerative disease of the h ip joint spaces with minimal osteophyte formation. There is scattered degenerative disease of the l umbosacral spine. The soft tissues demonstrate atherosclerotic disease with a right iliac arterial stent and a left external iliac stent in place. There is no free air or free fluid. There are meta llic densities in the region of the prostate. Urinary bladder is partially distended. The colon is unremarkable. The appendix is normal. The limited views of the small bowel are normal. IMPRESSION: 1. No acute abnormality or displaced fracture of the pelvis. 2. Arterial stents are in place. 3. Atherosclerotic disease and degenerative disease of the hips and pelvis.
--- NOTE | 2016-09-14 08:11 | CT ---
EXAM: CT THORAX HISTORY: Fall. TECHNIQUE: CT thorax without intravenous contrast. 5-mm axial sections. Coronal and sagittal re-fo rmations. COMPARISON: 08/10/2016 FINDINGS: Heart size is within normal limits. There is moderate atherosclerotic disease. Chronic-appearing interstitial changes diffusely. There is interstitial fibrosis especially in the upper zones with associated paraseptal emphysema. Moderate irregular pleural thickening in the apic es is stable since the recent exam, no older studies were available for comparison. This appearance may represent apical scarring. In the posterior left upper lobe there are to nodular opacities my suring about 0.86 cm, new since the 08/10/2016 exam. These may represent areas of pneumonitis or at electasis. Less likely would malignancy be considered. There is no pulmonary contusion suggested. No pleural fluid or pneumothorax. There is no active vascular congestion. The bones reveal no acute deformity or fracture. See also same day CT thoracic spine, CT cervical s pine, CT lumbar spine and CT abdomen reports. IMPRESSION: 1. No acute thorax injury identified. 2. Irregular pleuroparenchymal thickening in the apices, interstitial fibrosis, paraseptal emphysem a and posterior left upper lobe nodular opacities. Consider follow-up CT thorax in 4 months.
== END 2016-09-14 09:26 | disposition home or self-care (01) ==
LOC: ED 06:28
DX: S20.212A Contusion of left front wall of thorax, initial encounter (principal); S51.011A Laceration without foreign body of right elbow, initial encounter; M54.9 Dorsalgia, unspecified; W19.XXXA Unspecified fall, initial encounter
CPT/HCPCS: 99283

== ENCOUNTER 2016-09-20 07:16 | Outpatient (CLI) | payer OTHER ==
[2016-09-20 07:49] VITALS: BMI 27.1
== END 2016-09-20 07:17 ==
LOC: AMBL 07:16
PROVIDERS: ATTEND Emergency Medicine
DX: M25.551 Pain in right hip (principal); W19.XXXA Unspecified fall, initial encounter

== ENCOUNTER 2016-09-20 07:28 | Emergency (ER) | payer OTHER ==
--- NOTE | 2016-09-20 07:37 | ED.PDOC ---
General ED Provider: Dr. ASHLEY DUMONT JR Chief Complaint: Hip Pain/Injury Stated Complaint: 12:15 FELL AT DETENTION. GETTING TO BATHROOM.ON FLOOR 30 MIN. RIGHT HIP PAIN. BRUISING RIGHT HIP APPROX 4x4cm. SKIN TEAR RIGHT ELBOWwith bandaid patient states occurred today but note present on Sep.[End] 98.1 95 20 94% 119/63 3/10 Time Seen by Physician: 07:40 Mode of Arrival: Ambulance Information Source: Patient Exam Limitations: Dementia Primary Care Provider: SANG GRANT Nursing and Triage Documentation Reviewed and Agree: No Review of Systems - Review Of Systems Constitutional: Reports: Malaise Eyes: Reports: No symptoms Ears, Nose, Mouth, Throat: Reports: No symptoms Respiratory: Reports: No symptoms Cardiac: Reports: Chest pain (baljinder wall pain) GI: Reports: No symptoms : Reports: No symptoms Musculoskeletal: Reports: Joint pain (right hip) Skin: Reports: Bruising Neurological: Reports: No symptoms, Cognitive dysfunction Endocrine: Reports: No symptoms Hematologic/Lymphatic: Reports: No symptoms All Other Systems: Other Past Medical History - Past Medical History Endocrine: Reports: DM 2 ([Januvia]50mgPODAILY;[Humulin R]1-100 PRN ), Dyslipidemia ( [Fenofibrate] 145 mg PO DAILY 08/21/16 ; [Lipitor] 10 mg PO BEDTIME 08/21/16) Cardiovascular: Reports: CAD (aspirin plavix), Hypertension (HYPOTENSION; PERIPHERAL VASCULAR DISEASE;;[Zestril] 5 mg PO DAILY), CHF ([Lasix Tab] 20 mg PO MWFSA), Other ([Nitrostat] 0.4 mg SL Q5MIN) Respiratory: Reports: COPD ([Duoneb] 1 vial NEB RTBID), Other ([Claritin] 10 mg PO DAILY) Hematological: Reports: Unknown Gastrointestinal: Reports: Other ( [Protonix] 40 mg PO BIDAC) Genitourinary: Reports: Unknown Neuro/Psych: Reports: Anxiety ([Xanax] 0.25 mg PO BID), Depression ([Lexapro] 10 mg PO DAILY), Dementia ( [Aricept] 10 mg PO DAILY 08/21/16 ;;[Namenda] 10 mg PO BEDTIME), Other (ATAXIA ) Musculoskeletal: Reports: Other (Gabapentin 300 mg PO TID 08/21/16;;Hydrocodon- Acetaminophen 5-325) Cancer: Reports: Unknown - Surgical History General Surgical History: Reports: CABG (AORTOCORONARY BYPASS GRAFT) - Family History Family History: Reports: Unknown - Social History Smoking Status: Former smoker Hx Substance Use: No Alcohol Screening: Occasionally Physical Exam - Physical Exam Appearance: Well-appearing Pain Distress: Moderate Eyes: ELIAS, EOMI, Conjunctiva clear ENT: Ears normal, Nose normal, Oropharynx normal Neck: Supple Respiratory: Airway patent, Breath sounds clear, Breath sounds equal, Respirations nonlabored Cardiovascular: RRR, Pulses normal, No rub, No murmur GI/: Soft, Nontender, No masses, Bowel sounds normal, No Organomegaly Musculoskeletal: Normal strength, Limited ROM (right arm discomfort) Skin: Warm, Dry, Normal color Neurological: Sensation intact, Motor intact, Reflexes intact, Cranial nerves intact, Alert, Oriented Psychiatric: Affect appropriate, Mood appropriate Interpretation - Radiology Interpretation Radiology Interpretation By: Radiologist Radiology Results: Negative Exam Interpreted: CXR, CT Scan (HEAD AND NECK BUT POSSIBLE RIGHT FIRST RIB FRACTURE- CLINICALLY TENDER OVER FIRST RIB, NOTE NEGATIVE CSPINE AND NO PTX) Xray Comments: QUESTIONABLE FRACTURE MEDIAL RIGHT FIRST RIB Critical Care Note - Critical Care Note Total Time (mins): 5 Course - Course Hematology/Chemistry: 09/20/16 09:45 Orders, Labs, Meds: Lab Review 09/20/16 09:45 BUN 26 H Creatinine 1.92 H Estimated GFR (MDRD) 34.00 Orders Category Date Time Status NPO REMINDER: IMAGING ONCE CARE 09/20/16 09:41 Active IV [ED IV/MEDIPORT/POWERPORT] .ONCE EMERGENCY 09/20/16 10:20 Active BLOOD UREA NITROGEN Stat LAB 09/20/16 09:45 Completed CREATININE WITH GFR Stat LAB 09/20/16 09:45 Completed 0.9 % Sodium Chloride [Saline Flush] MEDS 09/20/16 10:20 Active 1 syr IVF PRN PRN Sodium Chloride 0.9% [Sodium Chloride] 1,000 ml MEDS 09/20/16 10:19 Active IV 200 mls/hr CT CERVICAL SPINE W/O CONTRAST Stat RADS 09/20/16 07:[address] CHEST W/WO CONTRAST Stat RADS 09/20/16 09:[address] HEAD W/O CONTRAST Stat RADS 09/20/16 07:45 Completed HIP, RIGHT 2 VIEWS Stat RADS 09/20/16 07:42 Completed HUMERUS, RIGHT 2 VIEWS Stat RADS 09/20/16 07:42 Completed PELVIS 1 OR 2 VIEWS Stat RADS 09/20/16 07:42 Completed RIBS, UNI W PA CHEST MIN 3V Stat RADS 09/20/16 07:42 Completed Medications Generic Name Dose Route Start Last Admin Trade Name Freq PRN Reason Stop Dose Admin Sodium Chloride 1,000 mls @ 200 mls/hr 09/20/16 10:19 09/20/16 10:55 Sodium Chloride IV 09/20/16 15:18 200 mls/hr .Q5H STA Administration Sodium Chloride 1 syr 09/20/16 10:20 Saline Flush IVF PRN PRN To flush IV Vital Signs: Temp Pulse Resp BP Pulse Ox 09/20/16 07:29 98.1 F 95 H 20 119/63 94 L Departure - Departure Time of Disposition: 12:40 Disposition: HOME SELF-CARE Discharge Problem: Closed rib fracture Qualifiers: Encounter type: initial encounter Rib fracture type: single rib Laterality: right Qualifier Code: (S22.31XA) Fracture of one rib, right side, initial encounter for closed fracture Instructions: Rib Fracture (ED) Condition: Good Pt referred to PMD for follow-up: Yes Additional Instructions: continue home medications pain medication on schedule as ordered encourage deep cough twice a day daily temperature inform PMD if over 101.0 or remaining elevated Allergies/Adverse Reactions: Allergies megestrol [From Megace] Adverse Reaction (Mild, Verified 09/20/16 07:47) Diarrhea Penicillins Adverse Reaction (Unknown, Verified 09/20/16 07:47) Unknown procaine [From Novocain] Adverse Reaction (Unknown, Verified 09/20/16 07:47) Unknown Home Medications: Ambulatory Orders Alprazolam [Xanax] 0.25 mg PO BID 08/21/16 Aspirin [Aspirin EC] 81 mg PO DAILYWM 08/21/16 Atorvastatin Calcium [Lipitor] 10 mg PO BEDTIME 08/21/16 Clopidogrel Bisulfate [Plavix] 75 mg PO DAILY 08/21/16 Donepezil HCl [Aricept] 10 mg PO DAILY 08/21/16 Fenofibrate Nanocrystallized [Fenofibrate] 145 mg PO DAILY 08/21/16 Hydrocodone/Acetaminophen [Hydrocodon-Acetaminophen 5-325] 1 tab PO Q8H PRN Loratadine [Claritin] 10 mg PO DAILY 08/21/16 Nitroglycerin [Nitrostat] 0.4 mg SL Q5MIN X 3 DOSES PRN 08/21/16 Escitalopram Oxalate [Lexapro] 10 mg PO DAILY #30 tablet 08/24/16 Sitagliptin Phosphate [Januvia] 50 mg PO DAILY 09/06/16 Furosemide [Lasix Tab] 20 mg PO MOWEFRSA #16 tablet 09/07/16 Insulin Regular, Human [Humulin R] 1 - 100 unit SUBCUT DAILY PRN #1 vial Ipratropium/Albuterol Neb [Duoneb] 1 vial NEB RTBID #60 vial.neb 09/07/16 Pantoprazole Sodium [Protonix] 40 mg PO BIDAC #60 tablet. 09/07/16 Glipizide 5 mg PO DAILY 09/14/16 Lisinopril [Zestril] 20 mg PO DAILY 09/14/16 Loperamide HCl [Imodium] 2 mg PO DIRECTED PRN 09/14/16 Metformin HCl 1,000 mg PO BID 09/14/16
[2016-09-20 07:49] VITALS: BP 119/63; TEMP 98.1; BMI 27.1
--- NOTE | 2016-09-20 08:26 | DI ---
EXAM: Pelvis AP view HISTORY: Fall, pain FINDINGS: Bones appear demineralized. No acute fracture or joint dislocation is identified. There is at least mild arthropathy of the sacroiliac joints and the hips. Bilateral iliac vascular stents are noted. IMPRESSION: No fracture or dislocation.
--- NOTE | 2016-09-20 08:28 | DI ---
EXAM: Two views of the right humerus. History: Right arm trauma. Findings: No acute fracture or dislocation. The right elbow joint is not well profiled and evaluat ion is limited. Impression: No acute fracture of the right humerus.
--- NOTE | 2016-09-20 08:29 | DI ---
EXAM: Frontal chest, right ribs three views HISTORY: Pain after fall. FINDINGS: No rib fracture is visible. There is no pneumothorax or pleural fluid. Cardiomegaly is noted. Sternotomy wires and aortic atherosclerosis. IMPRESSION: No rib fracture is identified.
--- NOTE | 2016-09-20 08:32 | DI ---
EXAM: Right hip two-view HISTORY: Fall, tender right ribs humerus hip COMPARISON: None FINDINGS: No fracture dislocation. Mild osteoarthritis right hip with joint space narrowing osteop hyte formation. There is atherosclerosis. There is a iliac stent. IMPERSSION: 1. No fracture or dislocation. 2. Mild osteoarthritis.
--- NOTE | 2016-09-20 08:38 | CT ---
EXAM: CT BRAIN HISTORY: Fall, right parietal bruising TECHNIQUE: CT brain without intravenous contrast. 5-mm axial sections with Reformations. COMPARISON: 09/14/2016 FINDINGS: There is generalized atrophy and at least mild chronic microvascular ischemic change. These finding s are stable. Brain otherwise is unremarkable without distinct evidence of hemorrhage or large vesse l distribution recent ischemic infarction. There is no suggestion of acute hydrocephalus or subdura l fluid collection. No mass or mass effect. Cranium is within normal limits. Mastoid air cells are aerated. The visualized paranasal sinuses are clear. IMPRESSION: No acute intracranial process.
--- NOTE | 2016-09-20 08:45 | CT ---
EXAM: CT cervical spine. HISTORY: Fall, neck pain. TECHNIQUE: CT cervical spine without contrast. Detailed axial sections. Coronal and sagittal re-f ormations. COMPARISON: 09/14/2016 FINDINGS: The bones appear demineralized. Questionable fracture of the medial right first rib. Correlate clin ically. No other suspected fracture. Lateral masses of C1 and C2 are normally aligned and the odonto id process is intact. Relatively severe degenerative disc and facet disease throughout although mos t apparent at C4/C5, C5/C6 and C6/C7 where the central canal stenosis is moderate to severe. Incide ntal note of irregular pleuroparenchymal thickening in the lung apices which is likely fibrotic, lashay plasia less likely within the differential. IMPRESSION: 1. No fracture of the cervical spine is identified. 2. Questionable fracture of the medial right first rib. 3. Severe degenerative changes of the spine with central canal stenosis. 4. Irregular pleuroparenchymal thickening of the upper lungs as described.]
[2016-09-20 10:09] LABS: CREATININE 1.92 mg/dL (0.60-1.10)
[2016-09-20] MEDS ORDERED: SODIUM CHLORIDE 1,000 ML IV STA (10:19)
--- NOTE | 2016-09-20 11:47 | CT ---
EXAM: CT Chest with and without contrast. HISTORY: Chest pain following a fall. Abnormal right first rib. COMPARISON: Rib radiographs earlier the same day. Chest CT 09/14/2016. TECHNIQUE: Multiple axial images of the chest were obtained prior to and following intravenous admi nistration of 100 mL of Visipaque 320, low osmolar. Images were reformatted in the sagittal and cor onal planes. FINDINGS: Nondisplaced right lateral sixth rib fracture noted on noncontrast axial image 34. There appear to be old right anterolateral fifth and sixth rib fractures. No osteolytic or osteoblastic lesion identified. Degenerative changes present in the spine. There has been previous sternotomy a nd CABG. Heart is at the upper limits normal in size. Atherosclerotic calcifications are present. No pericardial effusion identified. Nonenlarged mediastinal and hilar lymph nodes are present. Bi apical soft tissue density is stable. There is increased dependent consolidation in both lower lobe s. Calcified granulomatous changes noted. Emphysematous changes are present. No pleural effusion or pneumothorax identified. Limited images of the upper abdomen demonstrate a right renal cyst. IMPRESSION: 1. Nondisplaced right lateral sixth rib fracture. 2. Stable probable biapical scarring. Follow-up CT in 3-6 months recommended for reassessment. 3. Dependent subsegmental atelectasis in both lower lobe, increased.
== END 2016-09-20 15:38 | disposition home or self-care (01) ==
LOC: ED 07:28
DX: S22.31XA Fracture of one rib, right side, initial encounter for closed fracture (principal); S51.011A Laceration without foreign body of right elbow, initial encounter; R07.89 Other chest pain; M25.551 Pain in right hip; S70.01XA Contusion of right hip, initial encounter; Z79.899 Other long term (current) drug therapy; W19.XXXA Unspecified fall, initial encounter; Y92.129 Unspecified place in nursing home as the place of occurrence of the external cause
CPT/HCPCS: 36415; 82565; 84520; 96360; 96361; 99283

== ENCOUNTER 2016-10-06 10:49 | Inpatient (IN) ==
--- NOTE | 2016-10-06 11:27 | ED.PDOC ---
General ED Provider: Dr. ASHLEY DUMONT JR Chief Complaint: Extremity Pain/Injury Stated Complaint: FELL AT [facility] ON THE . HAD PAIN TO RIGHT HIP. 1 WEEK AGO DAUGHTER NOTICED RIGHT LOWER LEG AND ANKLE HAS STARTED SWELLING, UNABLE TO PUT PRESSURE ON THE LEG AND NOW HAS PAIN TO RIGHT GROIN AREA [End]since 09/13/16 97.8 107 18 99% 93/66 9/10 RIGHT GROIN PAIN WITH SWELLING TO RIGHT LOWER LEG AND ANKLE [End]daughter notes nereyda has dementia and is in [facility] post fall did have fever two weeks ago [facility]f request ua per daughter Time Seen by Physician: 11:27 Mode of Arrival: Wheelchair Information Source: Patient, Family, Usp Exam Limitations: No limitations, Dementia Primary Care Provider: SANG GRANT Nursing and Triage Documentation Reviewed and Agree: No Review of Systems - Review Of Systems Constitutional: Reports: Malaise, Weakness Cardiac: Reports: Edema (right >>left) Musculoskeletal: Reports: Joint pain Skin: Reports: Other Neurological: Reports: Cognitive dysfunction All Other Systems: Other Past Medical History - Past Medical History Endocrine: Reports: DM 2 ([Januvia]50mgPODAILY;[Humulin R]1-100 PRN ), Dyslipidemia ( [Fenofibrate] 145 mg PO DAILY 08/21/16 ; [Lipitor] 10 mg PO BEDTIME 08/21/16) Cardiovascular: Reports: CAD (aspirin plavix), Hypertension (HYPOTENSION; PERIPHERAL VASCULAR DISEASE;;[Zestril] 5 mg PO DAILY), CHF ([Lasix Tab] 20 mg PO MWFSA), Other ([Nitrostat] 0.4 mg SL Q5MIN) Respiratory: Reports: COPD ([Duoneb] 1 vial NEB RTBID), Other ([Claritin] 10 mg PO DAILY) Hematological: Reports: Unknown Gastrointestinal: Reports: Other ( [Protonix] 40 mg PO BIDAC) Genitourinary: Reports: Unknown Neuro/Psych: Reports: Anxiety ([Xanax] 0.25 mg PO BID), Depression ([Lexapro] 10 mg PO DAILY), Dementia ( [Aricept] 10 mg PO DAILY 08/21/16 ;;[Namenda] 10 mg PO BEDTIME), Other (ATAXIA ) Musculoskeletal: Reports: Other (Gabapentin 300 mg PO TID 12/19/16;;Hydrocodon- Acetaminophen 5-325) Cancer: Reports: Unknown Other Pertinent Past Medical History: ATAXIA HYPOTENSION PERIPHERAL VASCULAR DISEASE - Surgical History General Surgical History: Reports: CABG (AORTOCORONARY BYPASS GRAFT) - Family History Family History: Reports: Unknown - Social History Smoking Status: Former smoker Hx Substance Use: No Alcohol Screening: None Physical Exam - Physical Exam Appearance: Well-appearing, Thin Pain Distress: Mild Neck: Supple Respiratory: Airway patent Cardiovascular: RRR GI/: Soft, Nontender Musculoskeletal: Normal strength, ROM intact, Edema (right leg below knee left leg less edematous- tender right hip pain on ROM and point tenderness right knee ) Skin: Warm, Dry Neurological: Sensation intact, Alert Psychiatric: Affect appropriate Critical Care Note - Critical Care Note Total Time (mins): 5 Course - Course Hematology/Chemistry: 10/06/16 11:30 10/06/16 11:30 Orders, Labs, Meds: Lab Review 10/06/16 11:30 WBC 9.01 RBC 2.99 L Hgb 9.4 L Hct 29.1 L MCV 97.3 H MCH 31.4 H MCHC 32.3 RDW Coeff of Tabatha 16.2 H Plt Count 272 Immature Gran % (Auto) 0.8 Neut % (Auto) 77.5 Lymph % (Auto) 12.7 Wood % (Auto) 8.0 Eos % (Auto) 0.6 Baso % (Auto) 0.4 Immature Gran # (Auto) 0.1 Neut # 7.0 H Lymph # 1.1 Wood # 0.7 Eos # 0.1 Baso # 0.0 D-Dimer 1.92 Sodium 136 Potassium 5.6 H Chloride 102 Carbon Dioxide 23 Anion Gap 16.6 BUN 42 H Creatinine 3.54 H* Estimated GFR (MDRD) 17.00 BUN/Creatinine Ratio 11.86 Glucose 99 Calcium 9.4 Total Bilirubin 0.77 AST 13 L ALT 18 Alkaline Phosphatase 89 Total Protein 6.6 Albumin 3.2 L Globulin 3.4 Albumin/Globulin Ratio 0.94 Orders Category Date Time Status ADMIT PATIENT INPATIENT .TO [facility] (NON-MONITORED ADMISSION 10/06/16 15: 30 Active BED) ACTIVITY .BR with [facility] CARE 10/06/16 15:31 Active CASE MANAGEMENT CONSULT ONCE CARE 10/06/16 15:32 Active CATHETER INSERTION AND CARE Q4HR CARE 10/06/16 15:31 Active INTAKE & OUTPUT Q8HR CARE 10/06/16 15:30 Active INTAKE & OUTPUT Q8HR CARE 10/06/16 15:31 Active VITAL SIGNS Q4HR CARE 10/06/16 15:31 Active REGULAR DIET DIETARY 10/06/16 Dinner Ordered CBC W/ AUTO DIFF DAILY@0600 LAB 10/07/16 06:00 Ordered CBC W/ AUTO DIFF DAILY@0600 LAB 10/08/16 06:00 Ordered CBC W/ AUTO DIFF DAILY@0600 LAB 10/09/16 06:00 Ordered CBC W/ AUTO DIFF DAILY@0600 LAB 10/10/16 06:00 Ordered CBC W/ AUTO DIFF DAILY@0600 LAB 10/11/16 06:00 Ordered CBC W/ AUTO DIFF DAILY@0600 LAB 10/12/16 06:00 Ordered CBC W/ AUTO DIFF DAILY@0600 LAB 10/13/16 06:00 Ordered CBC W/ AUTO DIFF DAILY@0600 LAB 10/14/16 06:00 Ordered CBC W/ AUTO DIFF DAILY@0600 LAB 10/15/16 06:00 Ordered CBC W/ AUTO DIFF DAILY@0600 LAB 10/16/16 06:00 Ordered CBC W/ AUTO DIFF DAILY@0600 LAB 10/17/16 06:00 Ordered CBC W/ AUTO DIFF DAILY@0600 LAB 10/18/16 06:00 Ordered CBC W/ AUTO DIFF DAILY@0600 LAB 10/19/16 06:00 Ordered CBC W/ AUTO DIFF DAILY@0600 LAB 10/20/16 06:00 Ordered CBC W/ AUTO DIFF DAILY@0600 LAB 10/21/16 06:00 Ordered CBC W/ AUTO DIFF DAILY@0600 LAB 10/22/16 06:00 Ordered CBC W/ AUTO DIFF DAILY@0600 LAB 10/23/16 06:00 Ordered CBC W/ AUTO DIFF DAILY@0600 LAB 10/24/16 06:00 Ordered CBC W/ AUTO DIFF DAILY@0600 LAB 10/25/16 06:00 Ordered CBC W/ AUTO DIFF DAILY@0600 LAB 10/26/16 06:00 Ordered CBC W/ AUTO DIFF Stat LAB 10/06/16 11:30 Completed COMPREHENSIVE METABOLIC PANEL DAILY@0600 LAB 10/07/16 06:00 Ordered COMPREHENSIVE METABOLIC PANEL DAILY@0600 LAB 10/08/16 06:00 Ordered COMPREHENSIVE METABOLIC PANEL DAILY@0600 LAB 10/09/16 06:00 Ordered COMPREHENSIVE METABOLIC PANEL DAILY@0600 LAB 10/10/16 06:00 Ordered COMPREHENSIVE METABOLIC PANEL DAILY@0600 LAB 10/11/16 06:00 Ordered COMPREHENSIVE METABOLIC PANEL DAILY@0600 LAB 10/12/16 06:00 Ordered COMPREHENSIVE METABOLIC PANEL DAILY@0600 LAB 10/13/16 06:00 Ordered COMPREHENSIVE METABOLIC PANEL DAILY@0600 LAB 10/14/16 06:00 Ordered COMPREHENSIVE METABOLIC PANEL DAILY@0600 LAB 10/15/16 06:00 Ordered COMPREHENSIVE METABOLIC PANEL DAILY@0600 LAB 10/16/16 06:00 Ordered COMPREHENSIVE METABOLIC PANEL DAILY@0600 LAB 10/17/16 06:00 Ordered COMPREHENSIVE METABOLIC PANEL DAILY@0600 LAB 10/18/16 06:00 Ordered COMPREHENSIVE METABOLIC PANEL DAILY@0600 LAB 10/19/16 06:00 Ordered COMPREHENSIVE METABOLIC PANEL DAILY@0600 LAB 10/20/16 06:00 Ordered COMPREHENSIVE METABOLIC PANEL DAILY@0600 LAB 10/21/16 06:00 Ordered COMPREHENSIVE METABOLIC PANEL DAILY@0600 LAB 10/22/16 06:00 Ordered COMPREHENSIVE METABOLIC PANEL DAILY@0600 LAB 10/23/16 06:00 Ordered COMPREHENSIVE METABOLIC PANEL DAILY@0600 LAB 10/24/16 06:00 Ordered COMPREHENSIVE METABOLIC PANEL DAILY@0600 LAB 10/25/16 06:00 Ordered COMPREHENSIVE METABOLIC PANEL DAILY@0600 LAB 10/26/16 06:00 Ordered COMPREHENSIVE METABOLIC PANEL Stat LAB 10/06/16 11:30 Completed D-DIMER Stat LAB 10/06/16 11:30 Completed URINALYSIS C & S IF INDICATED Stat LAB 10/06/16 11:22 Uncollected Alprazolam [Xanax] MEDS 10/06/16 15:35 Active 0.25 mg PO BID PRN Aspirin [Aspirin EC] MEDS 10/07/16 08:00 Active 81 mg PO DAILYWM Atorvastatin Calcium [Lipitor] MEDS 10/06/16 21:00 Active 10 mg PO BEDTIME Clopidogrel Bisulfate [Plavix] MEDS 10/07/16 09:00 Active 75 mg PO DAILY Cyanocobalamin (Vitamin B-12) [Vitamin B-12] MEDS 10/06/16 16:00 Active 1,000 mcg IM MONTHLY Donepezil HCl [Aricept] MEDS 10/07/16 09:00 Active 10 mg PO DAILY Dronabinol [Marinol] MEDS 10/06/16 21:00 Active 2.5 mg PO BID Escitalopram Oxalate [Lexapro] MEDS 10/07/16 09:00 Active 10 mg PO DAILY Glipizide [Glucotrol] MEDS 10/07/16 08:00 Active 5 mg PO DAILYWM Hydrocodone Bit/Acetaminophen [[place] 5-325] MEDS 10/06/16 21:00 Active 1 tab PO TID Insulin Regular, Human [Humulin R] MEDS 10/06/16 15:35 Active See Protocol SUBCUT PRN PRN Ipratropium/Albuterol Neb [Duoneb] MEDS 10/06/16 18:00 Active 1 vial NEB RTBID Loratadine [Claritin] MEDS 10/07/16 09:00 Active 10 mg PO DAILY Nitroglycerin [Nitrostat] MEDS 10/06/16 15:35 Active 0.4 mg SL Q5MIN X 3 DOSES PRN Pantoprazole Sodium [Protonix] MEDS 10/06/16 17:00 Active 40 mg PO BIDAC Sitagliptin Phosphate [Januvia] MEDS 10/07/16 09:00 Active 50 mg PO DAILY Sodium Chloride 0.9% [Sodium Chloride] 1,000 ml MEDS 10/06/16 16:00 Active IV 75 mls/hr RESUSCITATION STATUS Routine OTHERS 10/06/16 15:[address] HIP RIGHT WITHOUT CONTRAST Stat RADS 10/06/16 13:46 Completed KNEE, RIGHT 4 VIEWS Stat RADS 10/06/16 13:46 Completed ULTRASOUND VENOUS SCAN KAITLIN LEGS [U/S VENOUS SCAN KAITLIN RADS 10/06/16 11:17 Completed LEGS] Stat Medications Generic Name Dose Route Start Last Admin Trade Name Freq PRN Reason Stop Dose Admin Acetaminophen/Hydrocodone Bitart 1 tab 10/06/16 21:00 [place] 5-325 PO TID JOE Albuterol/Ipratropium 1 vial 10/06/16 18:00 Duoneb NEB RTBID JOE Alprazolam 0.25 mg 10/06/16 15:35 Xanax PO BID PRN Agitation Aspirin 81 mg 10/07/16 08:00 Aspirin Ec PO DAILYWM JOE Atorvastatin Calcium 10 mg 10/06/16 21:00 Lipitor PO BEDTIME JOE Clopidogrel Bisulfate 75 mg 10/07/16 09:00 Plavix PO DAILY [facility] Cyanocobalamin 1,000 mcg 10/06/16 16:00 Vitamin B-12 IM MONTHLY [facility] Donepezil HCl 10 mg 10/07/16 09:00 Aricept PO DAILY [facility] Escitalopram Oxalate 10 mg 10/07/16 09:00 Lexapro PO DAILY [facility] Fenofibrate 160 mg 10/07/16 09:00 Triglide PO DAILY [facility] Glipizide 5 mg 10/07/16 08:00 Glucotrol PO DAILYWM [facility] Sodium Chloride 1,000 mls @ 75 mls/hr 10/06/16 16:00 Sodium Chloride IV .[id number] [facility] Insulin Human Regular 0 unit 10/06/16 15:35 Humulin R SUBCUT PRN PRN Hyperglycemica Protocol Lisinopril 20 mg 10/07/16 09:00 Zestril PO DAILY [facility] Loratadine 10 mg 10/07/16 09:00 Claritin PO DAILY [facility] Metformin HCl 1,000 mg 10/06/16 17:30 Glucophage PO BIDWM [facility] Nitroglycerin 0.4 mg 10/06/16 15:35 Nitrostat SL Q5MIN X 3 DOSES PRN Chest Pain Non-Formulary Medication 2.5 mg 10/06/16 21:00 Dronabinol [Marinol] PO BID [facility] Pantoprazole Sodium 40 mg 10/06/16 17:00 Protonix PO BIDAC [facility] Sitagliptin Phosphate 50 mg 10/07/16 09:00 Januvia PO DAILY [facility] Discontinued Medications Generic Name Dose Route Start Last Admin Trade Name Freq PRN Reason Stop Dose Admin Acetaminophen/Hydrocodone Bitart 7.5 mg 10/06/16 15:48 10/06/16 15:49 [place] 7.5-325 Mg/15 Ml PO 10/06/16 15:49 7.5 mg ONCE STA Administration Vital Signs: Temp Pulse Resp BP Pulse Ox 10/06/16 10:49 97.8 F 107 H 18 93/66 99 Departure - Departure Time of Disposition: 15:30 Disposition: ADMITTED INPATIENT Discharge Problem: Renal failure (ARF), acute on chronic, Pelvic fracture Condition: Fair Pt referred to PMD for follow-up: Yes Allergies/Adverse Reactions: Allergies megestrol [From Megace] Adverse Reaction (Mild, Verified 10/06/16 11:02) Diarrhea Penicillins Adverse Reaction (Unknown, Verified 10/06/16 11:02) Unknown procaine [From Novocain] Adverse Reaction (Unknown, Verified 10/06/16 11:02) Unknown Home Medications: Ambulatory Orders Alprazolam [Xanax] 0.25 mg PO BID 08/21/16 Aspirin [Aspirin EC] 81 mg PO DAILYWM 08/21/16 Atorvastatin Calcium [Lipitor] 10 mg PO BEDTIME 08/21/16 Clopidogrel Bisulfate [Plavix] 75 mg PO DAILY 08/21/16 Donepezil HCl [Aricept] 10 mg PO DAILY 08/21/16 Fenofibrate Nanocrystallized [Fenofibrate] 145 mg PO DAILY 08/21/16 Hydrocodone/Acetaminophen [Hydrocodon-Acetaminophen 5-325] 1 tab PO TID Loratadine [Claritin] 10 mg PO DAILY 08/21/16 Nitroglycerin [Nitrostat] 0.4 mg SL Q5MIN X 3 DOSES PRN 08/21/16 Escitalopram Oxalate [Lexapro] 10 mg PO DAILY #30 tablet 08/24/16 Sitagliptin Phosphate [Januvia] 50 mg PO DAILY 09/06/16 Furosemide [Lasix Tab] 20 mg PO MOWEFRSA #16 tablet 09/07/16 Insulin Regular, Human [Humulin R] 1 - 100 unit SUBCUT DAILY PRN #1 vial Ipratropium/Albuterol Neb [Duoneb] 1 vial NEB RTBID #60 vial.neb 09/07/16 Pantoprazole Sodium [Protonix] 40 mg PO BIDAC #60 tablet. 09/07/16 Glipizide 5 mg PO DAILY 09/14/16 Lisinopril [Zestril] 20 mg PO DAILY 09/14/16 Loperamide HCl [Imodium] 2 mg PO DIRECTED PRN 09/14/16 Metformin HCl 1,000 mg PO BID 09/14/16 Cyanocobalamin (Vitamin B-12) [Cyanocobalamin Injection] 1,000 mcg IJ MONTHLY Dronabinol [Marinol] 2.5 mg PO BID 10/06/16
[2016-10-06 11:37] LABS: BASOPHILS % (AUTO) 0.4 % (0.0-3.0); EOSINOPHILS # (AUTO) 0.1 K/ul (0.0-0.7); EOSINOPHILS % (AUTO) 0.6 % (0.0-7.0); HEMATOCRIT 29.1 % (42.0-52.0); HEMOGLOBIN 9.4 g/dl (14.0-18.0); IMMATURE GRANULOCYTE % (AUTO) 0.8 % (0.0-5.0); LYMPHOCYTES # (AUTO) 1.1 K/uL (0.60-3.4); LYMPHOCYTES % (AUTO) 12.7 (10.0-50.0); MEAN CORPUSCULAR HEMOGLOBIN 31.4 pg (27.0-31.0); MEAN CORPUSCULAR HGB CONC 32.3 (31.8-35.4); MEAN CORPUSCULAR VOLUME 97.3 fl (80.0-94.0); MONOCYTES # (AUTO) 0.7 K/uL (0.4-2.0); NEUTROPHILS % (AUTO) 77.5; PLATELET COUNT 272 10^3/uL (140-440); RED BLOOD COUNT 2.99 10^6/ul (4.70-6.10); WHITE BLOOD COUNT 9.01 K/ul (4.2-10.2)
[2016-10-06 12:03] LABS: ALBUMIN 3.2 g/dL (3.4-5.0); ALBUMIN/GLOBULIN RATIO 0.94; ANION GAP 16.6; BILIRUBIN,TOTAL 0.77 mg/dL (0.00-1.20); BUN/CREATININE RATIO 11.86; CALCIUM 9.4 mg/dL (8.2-10.2); POTASSIUM 5.6 mmol/L (3.5-5.1); TOTAL PROTEIN 6.6 g/dL (5.8-8.1)
[2016-10-06 12:06] LABS: CREATININE 3.54 mg/dL (0.60-1.10)
--- NOTE | 2016-10-06 12:59 | US ---
EXAM: Bilateral lower extremity venous Doppler sonogram. CLINICAL INDICATION: Bilateral lower extremity pain, tenderness and swelling. FINDINGS: There is normal compression, spontaneous color Doppler flow and augmentation demonstrated between th e region of the bilateral trifurcations through to the bilateral common femoral veins. IMPRESSION: No bilateral lower extremity DVT.
--- NOTE | 2016-10-06 14:47 | DI ---
EXAM: RIGHT KNEE. HISTORY: Fall, knee pain. FINDINGS: Right knee four view. Bones appear demineralized. There is moderate osteoarthritis invo lving the medial compartment. No fracture or joint effusion is seen. Surgical clips along the medi al lower thigh and leg. Vascular calcifications. IMPRESSION: Arthritic changes. No acute fracture or dislocation. No joint effusion.
--- NOTE | 2016-10-06 14:57 | CT ---
Exam: CT right hip without contrast. Clinical indication: Fall with right hip pain. TECHNIQUE: Axial unenhanced CT images through the right hip were obtained followed by coronal and s agittal reformats. Findings: The visualized portions of the proximal right femur are intact. The right hip joint is unremarkable . There is a subtle undisplaced fracture involving the right inferior pubic ramus. There may be a sub tle undisplaced fracture involving the right superior pubic ramus near the acetabulum the remainder of the visualized bony structures are unremarkable. There is an endovascular stent within the right external iliac artery. There appears to be a right f em-pop type bypass graft. The remainder the visualized soft tissues are unremarkable. Impression: Undisplaced fracture involving the right inferior pubic ramus and probably a second involving the ri ght superior pubic ramus.
[2016-10-06] MEDS ORDERED: NITROSTAT SL PRN (15:35)
[2016-10-06] MEDS ORDERED: XANAX PO PRN (15:35)
[2016-10-06] MEDS ORDERED: HUMULIN R SUBCUT PRN (15:35)
[2016-10-06] MEDS ORDERED: NORCO 7.5-325 MG/15 ML PO STA ×2 (15:41→15:48)
[2016-10-06] MEDS ORDERED: VITAMIN B-12 IM SCH (16:00)
[2016-10-06 17:35] VITALS: BMI 23.5
[2016-10-06] MEDS: GLUCOPHAGE PO SCH (18:08)
[2016-10-06] MEDS: SODIUM CHLORIDE 1,000 ML IV SCH (18:08)
[2016-10-06] MEDS: PROTONIX PO SCH (18:08)
[2016-10-06] MEDS ORDERED: NON-FORMULARY MEDICATION (Metformin Hcl [Metformin Hcl] 1,000 MG) PO SCH ×22 (21:00)
[2016-10-06] MEDS: LIPITOR PO SCH (22:15)
[2016-10-06] MEDS: NORCO 5-325 PO SCH (22:15)
[2016-10-06] MEDS: DRONABINOL 2.5 MG PO SCH (22:16)
[2016-10-07] MEDS: PROTONIX PO SCH ×2 (06:18→16:43)
[2016-10-07] MEDS: SODIUM CHLORIDE 1,000 ML IV SCH ×3 (06:20→21:50)
[2016-10-07 07:31] LABS: BASOPHILS # (AUTO) 0.1 K/uL (0-0.2); BASOPHILS % (AUTO) 0.7 % (0.0-3.0); EOSINOPHILS # (AUTO) 0.1 K/ul (0.0-0.7); EOSINOPHILS % (AUTO) 1.1 % (0.0-7.0); HEMATOCRIT 27.3 % (42.0-52.0); HEMOGLOBIN 8.8 g/dl (14.0-18.0); IMMATURE GRANULOCYTE % (AUTO) 0.7 % (0.0-5.0); LYMPHOCYTES # (AUTO) 1.1 K/uL (0.60-3.4); LYMPHOCYTES % (AUTO) 14.8 (10.0-50.0); MEAN CORPUSCULAR HEMOGLOBIN 31.5 pg (27.0-31.0); MEAN CORPUSCULAR HGB CONC 32.2 (31.8-35.4); MEAN CORPUSCULAR VOLUME 97.8 fl (80.0-94.0); MONOCYTES # (AUTO) 0.6 K/uL (0.4-2.0); MONOCYTES % (AUTO) 8.5 (0-10); NEUTROPHILS # (AUTO) 5.3 K/ul (2.0-6.9); NEUTROPHILS % (AUTO) 74.2; PLATELET COUNT 243 10^3/uL (140-440); RED BLOOD COUNT 2.79 10^6/ul (4.70-6.10)
[2016-10-07 07:50] LABS: ALBUMIN 2.7 g/dL (3.4-5.0); ALBUMIN/GLOBULIN RATIO 0.87; ANION GAP 14.9; BILIRUBIN,TOTAL 0.66 mg/dL (0.00-1.20); BUN/CREATININE RATIO 15.49; CREATININE 2.13 mg/dL (0.60-1.10); POTASSIUM 4.9 mmol/L (3.5-5.1); TOTAL PROTEIN 5.8 g/dL (5.8-8.1)
[2016-10-07 08:28] LABS: BILIRUBIN,URINE Negative (NEGATIVE); KETONES,URINE Negative (NEGATIVE); LEUKOCYTE ESTERASE ,URINE 3+ (NEGATIVE); NITRITE,URINE Negative (NEGATIVE); PROTEIN,URINE 2+ (NEGATIVE); URINE, BLOOD 3+ (NEGATIVE)
[2016-10-07 08:29] LABS: ADD URINE MICROSCOPIC YES
[2016-10-07] MEDS ORDERED: NON-FORMULARY MEDICATION (Fenofibrate Nanocrystallized [Fenofibrate] 145 MG) PO SCH ×22 (09:00)
[2016-10-07] MEDS ORDERED: ZESTRIL PO SCH (09:00)
[2016-10-07] MEDS: ASPIRIN EC PO SCH (09:22)
[2016-10-07] MEDS: GLUCOPHAGE PO SCH ×2 (09:22→18:05)
[2016-10-07] MEDS: GLUCOTROL PO SCH (09:22)
[2016-10-07] MEDS: ZESTRIL PO SCH (09:23)
[2016-10-07] MEDS: CLARITIN PO SCH (09:23)
[2016-10-07] MEDS: ARICEPT PO SCH (09:23)
[2016-10-07] MEDS: LEXAPRO PO SCH (09:24)
[2016-10-07] MEDS: PLAVIX PO SCH (09:24)
[2016-10-07] MEDS: JANUVIA PO SCH (09:24)
[2016-10-07] MEDS: TRIGLIDE PO SCH (09:24)
[2016-10-07] MEDS: DUONEB NEB SCH ×3 (09:36→17:15)
[2016-10-07] MEDS: NORCO 5-325 PO SCH ×3 (10:08→20:49)
[2016-10-07] MEDS: DRONABINOL 2.5 MG PO SCH ×2 (10:09→20:49)
[2016-10-07] MEDS ORDERED: DECADRON 4 MG/ML SDV IM STA (14:02)
[2016-10-07] MEDS ORDERED: XOPENEX 0.63 MG NEB SCH (14:30)
[2016-10-07] MEDS: LIPITOR PO SCH (20:48)
[2016-10-08] MEDS: DUONEB NEB SCH ×2 (05:03→17:21)
[2016-10-08 05:35] LABS: BASOPHILS % (AUTO) 0.1 % (0.0-3.0); EOSINOPHILS % (AUTO) 0.1 % (0.0-7.0); HEMATOCRIT 25.2 % (42.0-52.0); HEMOGLOBIN 8.1 g/dl (14.0-18.0); IMMATURE GRANULOCYTE % (AUTO) 0.5 % (0.0-5.0); LYMPHOCYTES # (AUTO) 0.9 K/uL (0.60-3.4); LYMPHOCYTES % (AUTO) 12.1 (10.0-50.0); MEAN CORPUSCULAR HEMOGLOBIN 31.5 pg (27.0-31.0); MEAN CORPUSCULAR HGB CONC 32.1 (31.8-35.4); MEAN CORPUSCULAR VOLUME 98.1 fl (80.0-94.0); MONOCYTES # (AUTO) 0.5 K/uL (0.4-2.0); MONOCYTES % (AUTO) 6.8 (0-10); NEUTROPHILS # (AUTO) 6.2 K/ul (2.0-6.9); NEUTROPHILS % (AUTO) 80.4; PLATELET COUNT 240 10^3/uL (140-440); RED BLOOD COUNT 2.57 10^6/ul (4.70-6.10); WHITE BLOOD COUNT 7.77 K/ul (4.2-10.2)
[2016-10-08] MEDS: PROTONIX PO SCH ×2 (05:41→17:20)
[2016-10-08 05:58] LABS: ALBUMIN 2.5 g/dL (3.4-5.0); ALBUMIN/GLOBULIN RATIO 0.83; BILIRUBIN,TOTAL 0.47 mg/dL (0.00-1.20); BUN/CREATININE RATIO 17.12; CALCIUM 8.7 mg/dL (8.2-10.2); CREATININE 1.46 mg/dL (0.60-1.10); TOTAL PROTEIN 5.5 g/dL (5.8-8.1)
[2016-10-08] MEDS: GLUCOPHAGE PO SCH ×2 (08:44→17:20)
[2016-10-08] MEDS: JANUVIA PO SCH (08:44)
[2016-10-08] MEDS: ARICEPT PO SCH (08:45)
[2016-10-08] MEDS: CLARITIN PO SCH (08:45)
[2016-10-08] MEDS: ASPIRIN EC PO SCH (08:45)
[2016-10-08] MEDS: PLAVIX PO SCH (08:45)
[2016-10-08] MEDS: TRIGLIDE PO SCH (08:45)
[2016-10-08] MEDS: ZESTRIL PO SCH (08:45)
[2016-10-08] MEDS: LEXAPRO PO SCH (08:45)
[2016-10-08] MEDS: GLUCOTROL PO SCH (08:46)
[2016-10-08] MEDS: DECADRON 4 MG/ML SDV IM SCH (08:47)
[2016-10-08] MEDS: NORCO 5-325 PO SCH ×3 (08:47→20:23)
[2016-10-08] MEDS: DRONABINOL 2.5 MG PO SCH ×2 (10:05→20:23)
[2016-10-08 19:44] LABS: HEMATOCRIT 28.7 % (42.0-52.0); HEMOGLOBIN 9.5 g/dl (14.0-18.0)
[2016-10-08] MEDS: LIPITOR PO SCH (20:23)
[2016-10-08] MEDS: SODIUM CHLORIDE 1,000 ML IV SCH (20:23)
[2016-10-09 04:43] LABS: BASOPHILS % (AUTO) 0.4 % (0.0-3.0); EOSINOPHILS % (AUTO) 0.4 % (0.0-7.0); HEMATOCRIT 26.8 % (42.0-52.0); HEMOGLOBIN 8.7 g/dl (14.0-18.0); IMMATURE GRANULOCYTE % (AUTO) 0.7 % (0.0-5.0); LYMPHOCYTES # (AUTO) 1.6 K/uL (0.60-3.4); LYMPHOCYTES % (AUTO) 28.9 (10.0-50.0); MEAN CORPUSCULAR HEMOGLOBIN 30.6 pg (27.0-31.0); MEAN CORPUSCULAR HGB CONC 32.5 (31.8-35.4); MEAN CORPUSCULAR VOLUME 94.4 fl (80.0-94.0); MONOCYTES # (AUTO) 0.5 K/uL (0.4-2.0); MONOCYTES % (AUTO) 8.8 (0-10); NEUTROPHILS # (AUTO) 3.3 K/ul (2.0-6.9); NEUTROPHILS % (AUTO) 60.8; PLATELET COUNT 213 10^3/uL (140-440); RED BLOOD COUNT 2.84 10^6/ul (4.70-6.10); WHITE BLOOD COUNT 5.37 K/ul (4.2-10.2)
[2016-10-09 05:04] LABS: ALBUMIN 2.4 g/dL (3.4-5.0); ALBUMIN/GLOBULIN RATIO 0.83; ANION GAP 11.5; BILIRUBIN,TOTAL 0.82 mg/dL (0.00-1.20); CALCIUM 8.5 mg/dL (8.2-10.2); CREATININE 1.23 mg/dL (0.60-1.10); POTASSIUM 4.5 mmol/L (3.5-5.1); TOTAL PROTEIN 5.3 g/dL (5.8-8.1)
[2016-10-09] MEDS: PROTONIX PO SCH ×2 (05:33→17:02)
[2016-10-09] MEDS: DUONEB NEB SCH ×2 (05:34→17:20)
[2016-10-09] MEDS: JANUVIA PO SCH (08:44)
[2016-10-09] MEDS: GLUCOPHAGE PO SCH (08:44)
[2016-10-09] MEDS: ASPIRIN EC PO SCH (08:44)
[2016-10-09] MEDS: NORCO 5-325 PO SCH ×3 (08:45→21:02)
[2016-10-09] MEDS: TRIGLIDE PO SCH (08:45)
[2016-10-09] MEDS: GLUCOTROL PO SCH (08:45)
[2016-10-09] MEDS: ZESTRIL PO SCH (08:45)
[2016-10-09] MEDS: LEXAPRO PO SCH (08:45)
[2016-10-09] MEDS: ARICEPT PO SCH (08:45)
[2016-10-09] MEDS: CLARITIN PO SCH (08:45)
[2016-10-09] MEDS: PLAVIX PO SCH (08:45)
[2016-10-09] MEDS: DECADRON 4 MG/ML SDV IM SCH (08:45)
[2016-10-09] MEDS: DRONABINOL 2.5 MG PO SCH ×2 (09:04→21:02)
--- NOTE | 2016-10-09 11:08 | PN ---
DATE OF SERVICE: 10/08/16 SUBJECTIVE: 80-year-old white male hospitalized with acute renal failure, dehydration, pelvic fracture. The patient is looking a lot better. He is alert, smiling, cutting up, oriented to place and person. REVIEW OF SYSTEMS: CONSTITUTIONAL: No night sweats. No fatigue, malaise, lethargy. No fever or chills. HEENT: Eyes: No visual changes. No eye pain. No eye discharge. ENT: No runny nose. No epistaxis. No sinus pain. No sore throat. No odynophagia. No congestion. RESPIRATORY: Occasional cough, no congestion. No hemoptysis. CARDIOVASCULAR: No angina symptoms. No CHF symptoms. No atypical chest pain for CAD. No palpitations. No shortness of breath. GASTROINTESTINAL: Appetite has improved. No abdominal pain. No nausea or vomiting. No diarrhea or constipation. No hematemesis. No hematochezia. GENITOURINARY: No urgency. No frequency. No dysuria. No hematuria. No obstructive symptoms. No discharge. No pain. No significant abnormal bleeding. MUSCULOSKELETAL: No musculoskeletal pain; no joint swelling. NEUROLOGICAL: No headache. No neck pain. No syncope. No seizures. No dizziness. PSYCHIATRIC: Not anxious. No depression. No suicidal thoughts. No homicidal thoughts. SKIN: No rash. No lesions. No wounds. ENDOCRINE: No unexplained weight loss. No weight gain. HEMATOLOGIC/LYMPHATIC: No anemia. No purpura. No petechiae. No prolonged or excessive bleeding. No palpable lymph nodes. PHYSICAL EXAMINATION: VITAL SIGNS: Temperature 98, pulse 54, respiratory rate 18, BP 110/60, pulse ox 96%. HEENT: Head normocephalic, atraumatic. Eyes: Extraocular muscles are intact. Pupils are equal, round and reactive to light and accommodation. Ears: No lesions. Nose appeared normal. Throat: No exudate or erythema. NECK: Supple. No JVD, no carotid bruit. No lymphadenopathy or thyromegaly. LUNGS: Decreased breath sounds with mild wheeze. Percussion note normal. Chest symmetrical. HEART: S1, S2, no S3. No murmurs. No cyanosis or clubbing. No ascites. Pulses: Dorsalis pedis and posterior tibial pulses +1 to +2 both sides. ABDOMEN: Soft. Nontender. Bowel sounds active. No CVA tenderness. No mass felt. EXTREMITIES: No edema. Full range of motion of all extremities, equal. NEUROLOGIC: No focal deficit. Cranial nerves II through XII are grossly intact. No headache, no double vision or headache. SKIN: Not dry. Intact. Turgor - normal. LYMPHATIC: No palpable lymph nodes/no lymphedema. MUSCULOSKELETAL: Normal joints with no swelling. Muscle tone is normal. LABS: Hemoglobin 8.1, hematocrit 25, WBC 7,700, normal differential. Creatinine 1.4, BUN 25, potassium 5, glucose 68. ASSESSMENT: 1. Acute renal failure resolved, now patient has chronic kidney disease, Stage 3. 2. Anemia. The patient is going to have type and crossmatch 2 units and will give 1 unit. No evidence of GI bleed. The patient's hydration has made his hemoglobin and hematocrit go down. 3. Bronchitis seems to be stable. It seems to be chronic bronchitis with chronic lung disease. 4. The patient's pelvic fracture with pain under control. CONDITION: Stable. TIME SPENT: More than 30 minutes. Plan and coordination of the patient's care discussed in the presence of nurse. PINKY
--- NOTE | 2016-10-09 11:16 | PN ---
DATE OF SERVICE: 10/07/16 SUBJECTIVE: The daughter is present in the room. 80-year-old white male hospitalized with renal failure; also has pelvic fracture. The patient is a lot better, is following me, smiling me. He knows my name. Hydration status seems to have improved. REVIEW OF SYSTEMS: CONSTITUTIONAL: No night sweats. No fatigue, malaise, lethargy. No fever or chills. HEENT: Eyes: No visual changes. No eye pain. No eye discharge. ENT: No runny nose. No epistaxis. No sinus pain. No sore throat. No odynophagia. No congestion. RESPIRATORY: No cough, no congestion. No hemoptysis. CARDIOVASCULAR: No angina symptoms. No CHF symptoms. No atypical chest pain for CAD. No palpitations. No shortness of breath. No PND, no orthopnea. GASTROINTESTINAL: No abdominal pain. No nausea or vomiting. No diarrhea or constipation. No hematemesis. No hematochezia. GENITOURINARY: No urgency. No frequency. No dysuria. No hematuria. No obstructive symptoms. No discharge. No pain. No significant abnormal bleeding. MUSCULOSKELETAL: No musculoskeletal pain; no joint swelling. NEUROLOGICAL: No headache. No neck pain. No syncope. No seizures. No dizziness. PSYCHIATRIC: Not anxious. No depression. No suicidal thoughts. No homicidal thoughts. SKIN: No rash. No lesions. No wounds. ENDOCRINE: No unexplained weight loss. No weight gain. HEMATOLOGIC/LYMPHATIC: No anemia. No purpura. No petechiae. No prolonged or excessive bleeding. No palpable lymph nodes. PHYSICAL EXAMINATION: GENERAL: The patient is oriented to person. VITAL SIGNS: Temperature 97.9, pulse 85, respiratory rate 16/min, BP 121/63. Pulse ox 98%. HEENT: Head normocephalic, atraumatic. Eyes: Extraocular muscles are intact. Pupils are equal, round and reactive to light and accommodation. Ears: No lesions. Nose appeared normal. Throat: No exudate or erythema. NECK: Supple. No JVD, no carotid bruit. No lymphadenopathy or thyromegaly. LUNGS: Decreased breath sounds with mild wheeze. Percussion note normal. Chest symmetrical. HEART: S1, S2, no S3. No murmurs. No cyanosis or clubbing. No ascites. Pulses: Dorsalis pedis and posterior tibial pulses +1 to +2 both sides. ABDOMEN: Soft. Nontender. Bowel sounds active. No CVA tenderness. No mass felt. EXTREMITIES: No edema. Full range of motion of all extremities, equal. NEUROLOGIC: No focal deficit. Cranial nerves II through XII are grossly intact. No headache, no double vision or headache. SKIN: Not dry. Intact. Turgor - much better. LYMPHATIC: No palpable lymph nodes/no lymphedema. MUSCULOSKELETAL: Normal joints with no swelling. Muscle tone is normal. LABS: The patient's skin turgor is alot better. Creatinine from 3.5 is down to 2.1 with BUN of 35, remarkable improvement. Hyperkalemia also has resolved. ASSESSMENT: 1. Renal failure improving, now has chronic kidney disease. 2. Mild bronchitis with slight congestion. 3. Dementia. 4. Pelvic fracture. 5. Peripheral artery disease. PLAN: 1. Will give 1 cc Decadron and 1 cc Decadron in the morning. 2. IV fluids to be decreased. 3. Watch for fluid overload. The family explained about all of this and the family does not want the patient to [facility] to [facility]. CONDITION: Stable TIME SPENT: More than 30 minutes. Plan and coordination of the patient's care discussed in the presence of nurse. PINKY
--- NOTE | 2016-10-09 13:06 | HP ---
DATE OF SERVICE: 10/06/16 The patient was seen in the emergency room and the daughter was present. REASON FOR HOSPITALIZATION: Acute renal failure Dehydration Fractured pelvis, right ramus and pubic bone. HISTORY OF PRESENT ILLNESS: The patient is a 80 year old white male who is a resident of [facility] was sent to the emergency room because of patient's pain in the right knee and right lower extremity pain. The patient's daughter was concerned about the blood clot in the legs. The patient's venous scan was negative. The ER attending examined the patient and thought right hip and right knee needed to be x-ray. CAT scan of right hip showed pelvic fracture and right ramus and right pubic bone. On further blood test the patient had creatinine of more than 3 with BUN of 50. Previous creatinine BUN were less than 2 and 35 respectively done a week ago.The patient also had change in the mental status, more drowsy. I don't think he knew exactly where he was and of course was no oriented to time. REVIEW OF SYSTEMS: CONSTITUTIONAL: No night sweats. Weakness and fatigue. No fever or chills. Unable to ambulate. HEENT: Eyes: No visual changes. No eye pain. No eye discharge. ENT: No runny nose. No epistaxis. No sinus pain. No sore throat. No odynophagia. No ear pain. No congestion. RESPIRATORY: Mild cough, some congestion. No hemoptysis. CARDIOVASCULAR: No angina symptoms. No CHF symptoms. No atypical chest pain for CAD. No palpitations. Shortness of breath. No PND. No orthopnea. No chest pain. GASTROINTESTINAL: No abdominal pain. No nausea or vomiting. No diarrhea or constipation. No hematemesis. No hematochezia. poor appetite. According to the daughter the patient hasn't eaten anything for two to three days. He hasn't eaten much in the way of food anyway. GENITOURINARY: No urgency. No frequency. No dysuria. No hematuria. No obstructive symptoms. No discharge. No pain. No significant abnormal bleeding. MUSCULOSKELETAL: No musculoskeletal pain. No joint swelling. No arthritis. NEUROLOGICAL: No headache. No neck pain. No syncope. No seizures. No dizziness. More confused then usual. PSYCHIATRIC: Not anxious. No depression. No suicidal thoughts. No homicidal thoughts. SKIN: No rash. No lesions. No wounds. ENDOCRINE: No unexplained weight loss. No weight gain. HEMATOLOGIC/LYMPHATIC: No anemia. No purpura. No petechiae. No prolonged or excessive bleeding. No palpable lymph nodes. PERSONAL/FAMILY/SOCIAL HISTORY: The patient has quit smoking several years ago. The patient is disoriented at present time. Tries to do most of the activity of daily living but requires a lot of help in bathing and also going to the bathroom. He is and lives with the . The daughter helps a lot. No alcohol abuse. PAST MEDICAL/SURGICAL PROBLEMS: Dementia Peripheral arterial disease Chronic kidney disease, stage 3 to 4 History of smoking Coronary bypass surgery, 1992 with stents 2001 Diabetes mellitus C of the prostate Hypertension Diabetic neuropathy Vitamin B12 deficiency Dilated ischemia cardiomyopathy Knee scope done twice Dyslipidemia MEDICATIONS: Xanax 0.25mg twice a day Aspirin 81 daily Atorvastatin 10mg PO daily Plavix 75mg PO daily Aricept 10mg PO daily Fenofibrate 145mg PO daily Gabapentin 300mg PO three times a day Hydrocodone 5-325mg PO three times a day PRN Claritin 10mg PO daily Nitroglycerin 0.4mg sublingual for chest pain PRN Lexapro 10mg PO daily Januvia 50mg PO daily Lasix 20mg five a day a week Insulin regular according to the sliding scale DUO NEB twice a day Protonix 40mg PO twice a day ALLERGIES: Megace Penicillin Procaine PHYSICAL EXAMINATION: GENERAL: The patient is confused and sleepy. VITAL SIGNS: Temperature 98, pulse 80, respiratory rate 15, blood pressure 138/ 72. HEENT: Head normocephalic, atraumatic. Eyes: Extraocular muscles are intact. Pupils are equal, round and reactive to light and accommodation. Ears: No lesions. Nose appeared normal. Throat: No exudate or erythema. Looks pale. Mucosa membrane dry. NECK: Supple. No JVP, no carotid bruit. No lymphadenopathy or thyromegaly. LUNGS: Clear to auscultation. Percussion note normal. Chest symmetrical. HEART: MPI not palpable on auscultation. S1, S2, no S3. No murmurs. No cyanosis or clubbing. No ascites. Pulses: Febrile pulses bilaterally Dorsalis pedis and posterior tibial pulse. ABDOMEN: Soft. Nontender. Bowel sounds active. No CVA tenderness. No mass felt. EXTREMITIES: Equal. No edema. Painful flexion of the right hip. Left non- tender. NEUROLOGIC: No focal deficit. Cranial nerves II through XII are grossly intact. No headache, no double vision or headache. SKIN: Dry. Mucosa membrane dry. Intact. Turgor - normal. LYMPHATIC: No palpable lymph nodes/no lymphedema. MUSCULOSKELETAL: Normal joints with no swelling. Muscle tone is normal. ASSESSMENT: 1. Acute renal failure 2. Pelvic fracture, right sided Ramus suprapubic bone 3. Dementia 4. Chronic lung disease with chronic bronchitis 5. Peripheral arterial disease 6. Diabetes Mellitus 7. Diabetic neuropathy 8. Coronary bypass surgery with history of stent 9. B12 deficiency 10. Dilated ischemic cardio myopathy 11. Dyslipidemia 12. Hypertension PLAN: 1. IV fluids 1,000cc D5 1/2 normal saline 12 hourly 2. Watch for fluid overload 3. Monitor CBC and CMP 4. ABG 5. Telemetry 6. Pain management 7. Continue all the home medications 8. The patient is DNR. Discussed with the patient's family 9. [facility] plan seems to be that patient's family especially the daughter doesn't want the patient to be transferred for renal failure. The patient is DNR and she would like patient to be treated at [facility] CONDITION: Stable PROGNOSIS: Poor TIME SPENT: More than 70 minutes. PINKY
--- NOTE | 2016-10-09 13:07 | PCM.PROG ---
Attending Provider: ATTENDING PROVIDER: Dr. SANG GRANT DATE OF SERVICE: 10/09/16 SUBJECTIVE: This 80 year old WHITE/ M was hospitalized 10/06/16. The patient is hospitalized with acute renal failure. Kidney function has practically normalized. He still has a mild cough. Anemia is much better with blood transfusion and will transfuse one more. Pelvic fracture is stable. He is not complaining of much pain. He seems oriented. Hydration is better. No symptoms of CHF. Appetite is improved. REVIEW OF SYSTEMS: CONSTITUTIONAL: No night sweats. No fatigue, malaise, lethargy. No fever or chills. HEENT: Eyes: No visual changes. No eye pain. No eye discharge. ENT: No runny nose. No epistaxis. No sinus pain. No odynophagia. No congestion. RESPIRATORY: Mild cough, no congestion. No hemoptysis. CARDIOVASCULAR: No angina symptoms. No CHF symptoms. No atypical chest pain for CAD. No palpitations. No shortness of breath. GASTROINTESTINAL: Improved appetite. No abdominal pain. No nausea or vomiting. No diarrhea or constipation. No hematemesis. No hematochezia. GENITOURINARY: No urgency. No frequency. No dysuria. No hematuria. No obstructive symptoms. No discharge. No pain. No significant abnormal bleeding. MUSCULOSKELETAL: No musculoskeletal pain; no joint swelling. NEUROLOGICAL: Awake, alert, oriented to time, place and person. No headache. No neck pain. No syncope. No seizures. No dizziness. PSYCHIATRIC: Not anxious. No depression. No suicidal thoughts. No homicidal thoughts. SKIN: No rash. No lesions. No wounds. ENDOCRINE: No unexplained weight loss. No weight gain. HEMATOLOGIC/LYMPHATIC: Anemia stable. No purpura. No petechiae. No prolonged or excessive bleeding. No palpable lymph nodes. PHYSICAL EXAMINATION: GENERAL: The patient is awake, alert and oriented, lying in bed in no distress. VITAL SIGNS: Temperature 98.0 F, Pulse 82, Respiratory Rate 16, BP 117/64, Pulse Ox 96% HEENT: Head normocephalic, atraumatic. Eyes: Extraocular muscles are intact. Pupils are equal, round and reactive to light and accommodation. Ears: No lesions. Nose appeared normal. Throat: No exudate or erythema. NECK: Supple. No JVD, no carotid bruit. No lymphadenopathy or thyromegaly. LUNGS: Bilateral mild wheeze but good air entry. No PE. Percussion note normal. Chest symmetrical. HEART: S1, S2, no S3. No murmurs. No cyanosis or clubbing. No ascites. Pulses: Dorsalis pedis and posterior tibial pulses +1 to +2 both sides. ABDOMEN: Soft. Non-tender. Bowel sounds active. No CVA tenderness. No mass felt. EXTREMITIES: No edema. Full range of motion of all extremities, equal. NEUROLOGIC: No focal deficit. Cranial nerves II through XII are grossly intact. No headache, no double vision or headache. SKIN: Not dry. Intact. Turgor-normal. LYMPHATIC: No palpable lymph nodes/no lymphedema. MUSCULOSKELETAL: Normal joints with no swelling. Muscle tone is normal. LAB REVIEW: 10/09/16 04:41 10/09/16 04:41 10/09/16 04:41: WBC 5.37, RBC 2.84 L, Hgb 8.7 L, Hct 26.8 L, MCV 94.4 H, MCH 30.6, MCHC 32.5, RDW Coeff of Tabatha 17.3 H, Plt Count 213, Immature Gran % (Auto) 0.7, Neut % (Auto) 60.8, Lymph % (Auto) 28.9, [place] % (Auto) 8.8, Eos % (Auto) 0.4, Baso % (Auto) 0.4, Immature Gran # (Auto) 0.0, Neut # 3.3, Lymph # 1.6, [place] # 0.5, Eos # 0.0, Baso # 0.0, Sodium 138, Potassium 4.5, Chloride 109 H, Carbon Dioxide 22 L, Anion Gap 11.5, BUN 16, Creatinine 1.23 H, Estimated GFR ( MDRD) 57.00, BUN/Creatinine Ratio 13.00, Glucose 81 L, Calcium 8.5, Total Bilirubin 0.82, AST 15, ALT 12, Alkaline Phosphatase 75, Total Protein 5.3 L, Albumin 2.4 L, Globulin 2.9, Albumin/Globulin Ratio 0.83 10/08/16 19:43: Hgb 9.5 L, Hct 28.7 L 10/08/16 09:55: Blood Type A POSITIVE, Antibody Screen Negative, Crossmatch (AHG ) See Detail ASSESSMENT: 1. Renal failure resolved. 2 Anemia stable. Willl transfuse one more unit of PRBC. 3. Chronic bronchitis. 4. Dementia, improved. 5. Hydration status improved. 6. Pelvic fracture is stable with less pain. PLAN: 1. Continue IV fluids 2. Monitor CBC and CMP 3. Will give one unit of PRBC. Plan and coordination of the patient's care discussed in the presence of Hog Stomach Preparer and nurse. CONDITION: Stable SCRIBED BY: CARLENE BERNSTEIN Dowel Inspector scribed while in presence of service performed by Dr. SANG GRANT on 10/09/16 ([id number])
[2016-10-09 13:55] LABS: HEMATOCRIT 31.1 % (42.0-52.0); HEMOGLOBIN 10.4 g/dl (14.0-18.0)
--- NOTE | 2016-10-09 16:44 | RS.PTINEVL ---
Subjective - Patient information Date of Evaluation: 10/09/16 Date of Arrival on Unit: 10/06/16 Usual Living Arrangement: [facility] Comments: Patient at care home for rehab. Family are contemplating taking patient home from this hospital stay. Medical History Comments:: Renal failure, frequent falls, Alzheimer's disease. Subjective Information/ Patient Comments:: Patient's daughter states Mr. Patino was at the care home for Rehab. States he has not walked in 2-3 months. Daughter states "they have not been getting him up". Reports they are planning to take him home. His states when he was at home, prior to the care home stay, he was falling frequently per day. Therapy staff at [facility] states Mr. Patino ambulated 5 feet at most and was usually difficult to transfer. - Level of function Abilities prior to this admission: Basically nonambulatory, in wheelchair at care home. Current Level of Function: Partially Dependent Interventions - Objective Patient Orientation: Person Current Interventions: IV's, Saldana Catheter Observation: Patient rubbing right thigh, stating "They didn't tell me my hip was broken". Range of Motion - ROM Right Upper Extremity AROM: WFL's Left Upper Extremity AROM: WFL's Right Lower Extremity AROM: Slight limitation Left Lower Extremity AROM: Slight limitation Muscle Strength - Muscle Strength Comments:: Patient with general weakness throughout. Balance - Sitting Balance and Reactions Static Sitting Balance: Fair (+) Dynamic Sitting Balance: Fair (+) - Standing Balance and Reactions Static Standing Balance: Poor Dynamic Standing Balance: Poor Functional Mobility - Bed Mobility Supine to Sit: Mod Assist, 2 person assist, Verbal Cues, Tactile Cues - Transfers Sit to Stand: Mod Assist, 2 person assist, Verbal Cues, Tactile Cues Stand to Sit: Mod Assist, 2 person assist, Verbal Cues, Tactile Cues Stand Pivot Transfers: Mod Assist, 2 person assist, Verbal Cues, Tactile Cues Comments:: Patient very shaky, impulsive, and anxious with transfers. Verbal cues given for safety, but patient is quick to dismiss them. He is not receptive to advice for safety. Unable to educate patient to understand not to put his full weight on the right LE. He occasionally lifts the right LE off the ground, but then also appears to put full weight on the right. - Safety Awareness Safety Awareness: Poor Treatment time - Time with patient Total treatment time: 23 (mins) Assessment - Assessment Problem List:: Decreased safety/Risk of falls, Weakness, Cognitive status limits abilities Rehab Potential: Poor Further Therapy Indicated?: No Comments: Patient demonstrates to be a poor candidate for skilled therapy due to lack of progress during his prison stay, being unreceptive to safety education and limitations from his cognitive status. He is a high fall risk due to weakness, impusiveness, and cognitive status. He presents to need [facility]. Recommend patient to be transferred to and from chair with nursing staff. Plan Duration of Treatment: One Time Treatment Anticipated Discharge Destination: [facility]
[2016-10-09] MEDS: SODIUM CHLORIDE 1,000 ML IV SCH (19:19)
[2016-10-09] MEDS: LIPITOR PO SCH (21:02)
[2016-10-10 04:42] LABS: BASOPHILS % (AUTO) 0.2 % (0.0-3.0); EOSINOPHILS % (AUTO) 0.2 % (0.0-7.0); HEMATOCRIT 30.3 % (42.0-52.0); IMMATURE GRANULOCYTE % (AUTO) 1.5 % (0.0-5.0); LYMPHOCYTES # (AUTO) 1.7 K/uL (0.60-3.4); LYMPHOCYTES % (AUTO) 32.5 (10.0-50.0); MEAN CORPUSCULAR HEMOGLOBIN 30.7 pg (27.0-31.0); MEAN CORPUSCULAR VOLUME 92.9 fl (80.0-94.0); MONOCYTES # (AUTO) 0.5 K/uL (0.4-2.0); MONOCYTES % (AUTO) 9.8 (0-10); NEUTROPHILS % (AUTO) 55.8; PLATELET COUNT 230 10^3/uL (140-440); RED BLOOD COUNT 3.26 10^6/ul (4.70-6.10); WHITE BLOOD COUNT 5.29 K/ul (4.2-10.2)
[2016-10-10 05:11] LABS: ALBUMIN 2.4 g/dL (3.4-5.0); ALBUMIN/GLOBULIN RATIO 0.8; ANION GAP 11.8; BILIRUBIN,TOTAL 0.71 mg/dL (0.00-1.20); BUN/CREATININE RATIO 10.25; CALCIUM 8.5 mg/dL (8.2-10.2); CREATININE 1.17 mg/dL (0.60-1.10); POTASSIUM 3.8 mmol/L (3.5-5.1); TOTAL PROTEIN 5.4 g/dL (5.8-8.1)
[2016-10-10] MEDS: DUONEB NEB SCH ×2 (05:53→18:01)
[2016-10-10] MEDS: PROTONIX PO SCH ×2 (06:06→17:27)
[2016-10-10] MEDS: ZESTRIL PO SCH (09:19)
[2016-10-10] MEDS: ARICEPT PO SCH (09:20)
[2016-10-10] MEDS: DRONABINOL 2.5 MG PO SCH ×2 (09:20→21:41)
[2016-10-10] MEDS: LEXAPRO PO SCH (09:20)
[2016-10-10] MEDS: ASPIRIN EC PO SCH (09:21)
[2016-10-10] MEDS: CLARITIN PO SCH (09:21)
[2016-10-10] MEDS: DECADRON 4 MG/ML SDV IM SCH (09:25)
[2016-10-10] MEDS: TRIGLIDE PO SCH (09:25)
[2016-10-10] MEDS: PLAVIX PO SCH (09:25)
[2016-10-10] MEDS: NORCO 5-325 PO SCH ×3 (09:38→21:41)
[2016-10-10] MEDS: SODIUM CHLORIDE 1,000 ML IV SCH (13:00)
--- NOTE | 2016-10-10 13:10 | PCM.PROG ---
Attending Provider: ATTENDING PROVIDER: Dr. SANG GRANT DATE OF SERVICE: 10/10/16 SUBJECTIVE: This 80 year old WHITE/ M was hospitalized 10/06/16. The patient is hospitalized with acute renal failure, dehydration, dementia and chronic bronchitis, which has continuously improved. Hemoglobin and hematocrit 10 and 30 respectively are stable. The patient has a mild cough. Appetite has improved to almost normal. There is no evidence of GI bleed. Bowel movements are regular. REVIEW OF SYSTEMS: CONSTITUTIONAL: No night sweats. No fatigue, malaise, lethargy. No fever or chills. HEENT: Eyes: No visual changes. No eye pain. No eye discharge. ENT: No runny nose. No epistaxis. No sinus pain. No odynophagia. No congestion. RESPIRATORY: Mild cough, no congestion. No hemoptysis. CARDIOVASCULAR: No angina symptoms. No CHF symptoms. No atypical chest pain for CAD. No palpitations. No shortness of breath. GASTROINTESTINAL: Appetite has improved. No abdominal pain. No nausea or vomiting. No diarrhea or constipation. No hematemesis. No hematochezia. GENITOURINARY: No urgency. No frequency. No dysuria. No hematuria. No obstructive symptoms. No discharge. No pain. No significant abnormal bleeding. MUSCULOSKELETAL: No musculoskeletal pain; no joint swelling. NEUROLOGICAL: Awake, alert, oriented but confused. No headache. No neck pain. No syncope. No seizures. No dizziness. PSYCHIATRIC: Not anxious. No depression. No suicidal thoughts. No homicidal thoughts. SKIN: No rash. No lesions. No wounds. ENDOCRINE: No unexplained weight loss. No weight gain. HEMATOLOGIC/LYMPHATIC: No anemia. No purpura. No petechiae. No prolonged or excessive bleeding. No palpable lymph nodes. PHYSICAL EXAMINATION: GENERAL: The patient is oriented to person but confused, lying in bed in no distress. VITAL SIGNS: Temperature 98.2 F, Pulse 87, Respiratory Rate 22, BP 106/63, Pulse Ox 97% HEENT: Head normocephalic, atraumatic. Eyes: Extraocular muscles are intact. Pupils are equal, round and reactive to light and accommodation. Ears: No lesions. Nose appeared normal. Throat: No exudate or erythema. NECK: Supple. No JVD, no carotid bruit. No lymphadenopathy or thyromegaly. LUNGS: Decreased breath sounds with mild wheeze. Percussion note normal. Chest symmetrical. HEART: S1, S2, no S3. No murmurs. No cyanosis or clubbing. No ascites. Pulses: Dorsalis pedis and posterior tibial pulses +1 to +2 both sides. ABDOMEN: Soft. Non-tender. Bowel sounds active. No CVA tenderness. No mass felt. EXTREMITIES: No edema. Full range of motion of all extremities, equal. NEUROLOGIC: No focal deficit. Cranial nerves II through XII are grossly intact. No headache, no double vision or headache. SKIN: Not dry. Intact. Turgor-normal. LYMPHATIC: No palpable lymph nodes/no lymphedema. MUSCULOSKELETAL: Normal joints with no swelling. Muscle tone is normal. LAB REVIEW: 10/10/16 04:39 10/10/16 04:39 10/10/16 04:39: WBC 5.29, RBC 3.26 L, Hgb 10.0 L, Hct 30.3 L, MCV 92.9, MCH 30.7 , MCHC 33.0, RDW Coeff of Tabatha 17.1 H, Plt Count 230, Immature Gran % (Auto) 1.5 , Neut % (Auto) 55.8, Lymph % (Auto) 32.5, [place] % (Auto) 9.8, Eos % (Auto) 0.2, Baso % (Auto) 0.2, Immature Gran # (Auto) 0.1, Neut # 3.0, Lymph # 1.7, [place] # 0.5, Eos # 0.0, Baso # 0.0, Sodium 139, Potassium 3.8, Chloride 109 H, Carbon Dioxide 22 L, Anion Gap 11.8, BUN 12, Creatinine 1.17 H, Estimated GFR (MDRD) 60.00, BUN/Creatinine Ratio 10.25, Glucose 65 L, Calcium 8.5, Total Bilirubin 0.71, AST 21, ALT 17, Alkaline Phosphatase 78, Total Protein 5.4 L, Albumin 2.4 L, Globulin 3.0, Albumin/Globulin Ratio 0.80 10/09/16 13:45: Hgb 10.4 L, Hct 31.1 L 10/08/16 09:55: Blood Type A POSITIVE, Antibody Screen Negative, Crossmatch (AHG ) See Detail ASSESSMENT: 1. Acute renal failure resolved with creatinine 1.1 and BUN 12. 2. Anemia, stable. Given 2 units of PRBC. 3. Pelvic fracture, right inferior pubic ramus PLAN: 1. Namenda 10 mg p.o. at night 2. A1C 3. Discontinue Saldana Catheter 4. Discontinue IV fluids 5. The patient is not able to walk so will put him on PT/OT Plan and coordination of the patient's care discussed in the presence of World Language Teacher and nurse. CONDITION: Stable SCRIBED BY: CARLENE BERNSTEIN Pipe Layer scribed while in presence of service performed by Dr. SANG GRANT on 10/10/16 ([id number])
[2016-10-10] MEDS: LIPITOR PO SCH (21:41)
[2016-10-10] MEDS: NAMENDA PO SCH (21:41)
[2016-10-11] MEDS: DUONEB NEB SCH (05:00)
[2016-10-11 05:26] LABS: BASOPHILS % (AUTO) 0.2 % (0.0-3.0); EOSINOPHILS % (AUTO) 0.4 % (0.0-7.0); HEMOGLOBIN 11.5 g/dl (14.0-18.0); IMMATURE GRANULOCYTE % (AUTO) 0.7 % (0.0-5.0); LYMPHOCYTES # (AUTO) 2.2 K/uL (0.60-3.4); LYMPHOCYTES % (AUTO) 26.6 (10.0-50.0); MEAN CORPUSCULAR HEMOGLOBIN 30.7 pg (27.0-31.0); MEAN CORPUSCULAR HGB CONC 32.9 (31.8-35.4); MEAN CORPUSCULAR VOLUME 93.6 fl (80.0-94.0); MONOCYTES # (AUTO) 0.7 K/uL (0.4-2.0); MONOCYTES % (AUTO) 8.1 (0-10); NEUTROPHILS # (AUTO) 5.2 K/ul (2.0-6.9); PLATELET COUNT 268 10^3/uL (140-440); RED BLOOD COUNT 3.74 10^6/ul (4.70-6.10); WHITE BLOOD COUNT 8.07 K/ul (4.2-10.2)
[2016-10-11 05:53] LABS: ALBUMIN 2.7 g/dL (3.4-5.0); ALBUMIN/GLOBULIN RATIO 0.84; ANION GAP 12.9; BILIRUBIN,TOTAL 0.74 mg/dL (0.00-1.20); BUN/CREATININE RATIO 7.82; CREATININE 1.15 mg/dL (0.60-1.10); POTASSIUM 3.9 mmol/L (3.5-5.1); TOTAL PROTEIN 5.9 g/dL (5.8-8.1)
[2016-10-11] MEDS: PROTONIX PO SCH (06:03)
[2016-10-11] MEDS: DECADRON 4 MG/ML SDV IM SCH (08:44)
[2016-10-11] MEDS: ZESTRIL PO SCH (08:45)
[2016-10-11] MEDS: PLAVIX PO SCH (08:45)
[2016-10-11] MEDS: ASPIRIN EC PO SCH (08:45)
[2016-10-11] MEDS: LEXAPRO PO SCH (08:45)
[2016-10-11] MEDS: NAMENDA PO SCH (08:45)
[2016-10-11] MEDS: CLARITIN PO SCH (08:45)
[2016-10-11] MEDS: ARICEPT PO SCH (08:45)
[2016-10-11] MEDS: NORCO 5-325 PO SCH (08:45)
[2016-10-11] MEDS: TRIGLIDE PO SCH (08:46)
[2016-10-11] MEDS: DRONABINOL 2.5 MG PO SCH (08:46)
[2016-10-11 10:57] VITALS: BP 95/63; TEMP 97.7
--- NOTE | 2016-10-11 13:17 | PCM.PROG ---
Attending Provider: ATTENDING PROVIDER: Dr. SANG GRANT DATE OF SERVICE: 10/11/16 SUBJECTIVE: This 80 year old WHITE/ M was hospitalized 10/06/16. The patient is hospitalized with acute renal failure, dehydration and pelvic fracture. He is moving his legs without any pain. No leg pain at all. Kidney functions are normal. The patient has been intermittently confused. REVIEW OF SYSTEMS: CONSTITUTIONAL: No night sweats. No fatigue, malaise, lethargy. No fever or chills. HEENT: Eyes: No visual changes. No eye pain. No eye discharge. ENT: No runny nose. No epistaxis. No sinus pain. No odynophagia. No congestion. RESPIRATORY: No cough, no congestion. No hemoptysis. CARDIOVASCULAR: No angina symptoms. No CHF symptoms. No atypical chest pain for CAD. No palpitations. No shortness of breath. GASTROINTESTINAL: No abdominal pain. No nausea or vomiting. No diarrhea or constipation. No hematemesis. No hematochezia. GENITOURINARY: No urgency. No frequency. No dysuria. No hematuria. No obstructive symptoms. No discharge. No pain. No significant abnormal bleeding. MUSCULOSKELETAL: No musculoskeletal pain; no joint swelling. NEUROLOGICAL: Awake; confused. No headache. No neck pain. No syncope. No seizures. No dizziness. PSYCHIATRIC: Not anxious. No depression. No suicidal thoughts. No homicidal thoughts. SKIN: No rash. No lesions. No wounds. ENDOCRINE: No unexplained weight loss. No weight gain. HEMATOLOGIC/LYMPHATIC: No anemia. No purpura. No petechiae. No prolonged or excessive bleeding. No palpable lymph nodes. PHYSICAL EXAMINATION: GENERAL: The patient is awake; confused sitting up in bed in no distress. VITAL SIGNS: Temperature 97.3 F, Pulse 85, Respiratory Rate 20, BP 135/71, Pulse Ox 94% HEENT: Head normocephalic, atraumatic. Eyes: Extraocular muscles are intact. Pupils are equal, round and reactive to light and accommodation. Ears: No lesions. Nose appeared normal. Throat: No exudate or erythema. NECK: Supple. No JVD, no carotid bruit. No lymphadenopathy or thyromegaly. LUNGS: Decreased breath sounds. Clear to auscultation. Percussion note normal. Chest symmetrical. HEART: S1, S2, no S3. No murmurs. No cyanosis or clubbing. No ascites. Pulses: Dorsalis pedis and posterior tibial pulses +1 to +2 both sides. ABDOMEN: Soft. Non-tender. Bowel sounds active. No CVA tenderness. No mass felt. EXTREMITIES: No edema. Full range of motion of all extremities, equal. NEUROLOGIC: No focal deficit. Cranial nerves II through XII are grossly intact. No headache, no double vision or headache. SKIN: Not dry. Intact. Turgor-normal. LYMPHATIC: No palpable lymph nodes/no lymphedema. MUSCULOSKELETAL: Normal joints with no swelling. Muscle tone is normal. LAB REVIEW: 10/11/16 05:15 10/11/16 05:25 10/11/16 05:25: Sodium 140, Potassium 3.9, Chloride 107, Carbon Dioxide 24, Anion Gap 12.9, BUN 9, Creatinine 1.15 H, Estimated GFR (MDRD) 61.00, BUN/ Creatinine Ratio 7.82, Glucose 90, Calcium 9.0, Total Bilirubin 0.74, AST 18, ALT 17, Alkaline Phosphatase 89, Total Protein 5.9, Albumin 2.7 L, Globulin 3.2 , Albumin/Globulin Ratio 0.84 10/11/16 05:15: WBC 8.07, RBC 3.74 L, Hgb 11.5 L, Hct 35.0 L, MCV 93.6, MCH 30.7 , MCHC 32.9, RDW Coeff of Tabatha 16.1 H, Plt Count 268, Immature Gran % (Auto) 0.7 , Neut % (Auto) 64.0, Lymph % (Auto) 26.6, [place] % (Auto) 8.1, Eos % (Auto) 0.4, Baso % (Auto) 0.2, Immature Gran # (Auto) 0.1, Neut # 5.2, Lymph # 2.2, [place] # 0.7, Eos # 0.0, Baso # 0.0 10/10/16 04:05: Hemoglobin A1c 5.1 ASSESSMENT: 1. Renal failure resolved 2. Pelvic fracture stable 3. Dementia 4. Peripheral artery disease 5. Chronic lung disease and chronic bronchitis PLAN: 1. Fall precautions 2. Discharge to jail 3. Push oral fluids 4. Decrease [place] to b.i.d. 5. Discharge to jail 6. Continue Lasix at 3 days a week 7. Discontinue Fenofibrate 8. Discontinue Metformin 9. Discontinue Glipizide 10. Accu-Cheks Plan and coordination of the patient's care discussed in the presence of Liner Roll Changer and nurse. CONDITION: Stable SCRIBED BY: CARLENE BERNSTEIN Mechanical System Technician scribed while in presence of service performed by Dr. SANG GRANT on 10/11/16 ([id number])
--- NOTE | 2016-10-11 14:11 | CM.DICTOOL ---
ADMISSION: 10/06/16 15:42 DISCHARGE: 2016 DATE OF SERVICE: 10/11/16 FINAL DIAGNOSIS Acute Renal Failure, resolved Dehydration Anemia, transfusion 2 units Pelvic Fracture, right inferior pubic ramus Dementia Chronic Lung Disease with chronic bronchitis Peripheral Arterial Disease Diabetes Mellitus Diabetic Neuropathy CABG with history of stent B12 deficiency Dilated Ischemic Cardiomyopathy Dyslipidemia Hypertension LAST VITALS Temp Pulse Resp BP Pulse Ox 97.7 F 78 16 95/63 95 10/11/16 10:00 10/11/16 10:00 10/11/16 10:00 10/11/16 10:00 10/11/16 10:00 ACTIVE HOME MEDICATIONS Acetaminophen/Hydrocodone Bitart ([place] 5-325) 1 tab PO BID [facility] Last Admin: 10/11/16 08:45 Dose: 1 tab Albuterol/Ipratropium (Duoneb) 1 vial NEB RTBID [facility] Last Admin: 10/11/16 05:00 Dose: 1 vial Alprazolam (Xanax) 0.25 mg PO BID PRN PRN Reason: Agitation Aspirin (Aspirin Ec) 81 mg PO DAILYWM [facility] Last Admin: 10/11/16 08:45 Dose: 81 mg Atorvastatin Calcium (Lipitor) 10 mg PO BEDTIME [facility] Last Admin: 10/10/16 21:41 Dose: 10 mg Clopidogrel Bisulfate (Plavix) 75 mg PO DAILY [facility] Last Admin: 10/11/16 08:45 Dose: 75 mg Cyanocobalamin (Vitamin B-12) 1,000 mcg IM MONTHLY [facility] Donepezil HCl (Aricept) 10 mg PO DAILY [facility] Last Admin: 10/11/16 08:45 Dose: 10 mg Escitalopram Oxalate (Lexapro) 10 mg PO DAILY [facility] Last Admin: 10/11/16 08:45 Dose: 10 mg Lisinopril (Zestril) 20 mg PO DAILY [facility] Last Admin: 10/11/16 08:45 Dose: 20 mg Loratadine (Claritin) 10 mg PO DAILY [facility] Last Admin: 10/11/16 08:45 Dose: 10 mg Nitroglycerin (Nitrostat) 0.4 mg SL Q5MIN X 3 DOSES PRN PRN Reason: Chest Pain Non-Formulary Medication (Dronabinol [Marinol]) 2.5 mg PO BID [facility] Last Admin: 10/11/16 08:46 Dose: 2.5 mg Pantoprazole Sodium (Protonix) 40 mg PO BIDAC JOE Last Admin: 10/11/16 06:03 Dose: 40 mg Furosemide (Lasix) 20 mg 3 times weekly Last Admin: ALLERGIES megestrol [From Megace] Adverse Reaction (Mild, Verified 10/06/16 11:02) Diarrhea Penicillins Adverse Reaction (Unknown, Verified 10/06/16 11:02) Unknown procaine [From Novocain] Adverse Reaction (Unknown, Verified 10/06/16 11:02) Unknown NEW PRESCRIPTIONS: Namenda 10 mg daily SMOKING: Not applicable. Patient chews tobacco DISEASE SPECIFIC EDUCATION: Patient unable to comprehend teaching due to dementia LAB REVIEW: 10/11/16 05:15 10/11/16 05:25 10/11/16 05:25: Sodium 140, Potassium 3.9, Chloride 107, Carbon Dioxide 24, Anion Gap 12.9, BUN 9, Creatinine 1.15 H, Estimated GFR (MDRD) 61.00, BUN/ Creatinine Ratio 7.82, Glucose 90, Calcium 9.0, Total Bilirubin 0.74, AST 18, ALT 17, Alkaline Phosphatase 89, Total Protein 5.9, Albumin 2.7 L, Globulin 3.2 , Albumin/Globulin Ratio 0.84 10/11/16 05:15: WBC 8.07, RBC 3.74 L, Hgb 11.5 L, Hct 35.0 L, MCV 93.6, MCH 30.7 , MCHC 32.9, RDW Coeff of Tabatha 16.1 H, Plt Count 268, Immature Gran % (Auto) 0.7 , Neut % (Auto) 64.0, Lymph % (Auto) 26.6, [place] % (Auto) 8.1, Eos % (Auto) 0.4, Baso % (Auto) 0.2, Immature Gran # (Auto) 0.1, Neut # 5.2, Lymph # 2.2, [place] # 0.7, Eos # 0.0, Baso # 0.0 PLAN: Discharge to [facility] Diet: Regular diet, encourage liquids. Full glass of water with each medication pass and at meal times. May have snacks from home. Activity: up to chair as tolerated. Medications changes: All diabetic medications have been discontinued; Januvia, Glipizide, Metformin. Fenofibrate has also been discontinued. [place] 5-325 mg has been reduced to BID daily. Orders: Physical and Occupational Therapy Evaluation Vital Signs daily for 7 days, then weekly Weigh weekly Full glass of water with each medication pass and at meal times. Accu-checks TID, no coverage. Notify MD for Accu-check readings greater than 160. Fall precautions Decubitus precautions Labs: CBC, CMP in one week, then monthly Lipids every [address] Mortensen to see on [facility] rounds in 7-10 days. Mr. Patino is alert to person. He is cooperative, but disoriented to time and place. He is able to feed himself, but requires nursing staff for personal care. He transfers with assistance of 2 staff members. Meal intake fair at 25- 100%. Urinary incontinence at times, but urinal is also used. Stage 1 decubitus noted to the right buttock. Scabbed areas noted to both arms, bruising also noted. Alberto Bright MD
--- NOTE | 2016-10-12 12:42 | DS ---
DATE OF SERVICE: 10/11/16 FINAL DIAGNOSIS: 1. Acute renal failure, resolved 2. Dehydration 3. Anemia, transfusion 2 units 4. Pelvic fracture, right inferior pubic ramus 5. Dementia 6. Chronic lung disease with chronic bronchitis 7. Peripheral arterial disease 8. Diabetes Mellitus 9. Diabetic Neuropathy 10. CABG with history of stent 11. B12 deficiency 12. Dilated ischemic Cardiomyopathy 13. Dyslipidemia 14. Hypertension LAST VITALS: Temperature 97.7, pulse 78, respiratory rate 16, blood pressure 95/63 and pulse ox 95%. DISCHARGE INSTRUCTIONS: Discharge to care home, [place]. All diabetic medications have been discontinued; Januvia, Glipizide, Metformin. Fenofibrate has also been discontinued. [place] 5-325 has been reduced to twice a day daily. Dr. Mortensen to see on care home rounds in 7-10 days. MEDICATIONS AT DISCHARGE: [place] 5-325 twice a day DUO NEB 1 vial NEB RT twice day Xanax 0.25mg PO twice a day PRN Aspirin 81mg PO daily Lipitor 10mg PO bedtime Plavix 75mg PO daily Vitamin B12 1,000mcg IM monthly Aricept 10mg PO daily Lexapro 10mg PO daily Zestril 20mg PO daily Claritin 10mg PO daily Nitrostat 0.4mg SL Q [id number] doses PRN Marinol 2.5mg PO twice a day Protonix 40mg PO twice a day Lasix 20mg three times weekly. ALLERGIES: Megestrol Penicillins Procaine NEW PRESCRIPTIONS: Namenda 10mg daily DIET INSTRUCTIONS: Regular diet, encourage liquids. Full glass of water with each medication pass and at meal times. May have snacks from home. ACTIVITY: Up to chair as tolerated. SMOKING: N/A patient chews tobacco DISEASE SPECIFIC EDUCATION: The patient unable to comprehend teaching due to dementia HOSPITAL COURSE: The patient is an 80 year old white male was hospitalized with dehydration, dementia, very poor health status with acute renal failure. The patient during the hospital stay had chronic bronchitis type of symptoms which was treated with steroids. The patient also had pelvic fracture with rest and anti- inflammatory his condition improved. He did not have much pain at all. He was able to move his hips without much problem. His renal failure with creatinine of 3 and BUN 50 resolved and at the time of discharge his creatinine was 1.1 and BUN was 9. His hgb and hct was 11.5 and 35 which dropped below 8 and required a couple units of packed red cells. The patient was alert and was able to talk, at times he recognized me several times during the stay in the hospital and was able to tell the name of the place at times. The patient has been confused most of the time, demented. He is not able to walk to coordinate his walking. The patient has otherwise improved with improved appetite and improved mental status. SPECIFIC ORDERS: Physical and Occupational therapy evaluation Vital signs daily for 7 days, then weekly Weight weekly Full glass of water with each medication pass and at meal times Accu-checks three times a day, no coverage. Notify MD for Accu-check readings greater than 160. Fall precautions Decubitus precautions LABS: CBC, CMP in one week, then monthly Lipids every 6 months. CONDITION: Stable PROGNOSIS: Poor considering his multiple medical problems. TIME SPENT: More than 60 minutes. KEELEYD
--- NOTE | 2016-10-12 12:43 | PN ---
10/06/16: Level 5 10/07/16: Intermediate 10/08/16: Intermediate 10/09/16: Intermediate 10/10/16: Intermediate 10/11/16: D as in discharge MTDD
== END 2016-10-11 14:45 | disposition home or self-care (01) | DRG 683 ==
LOC: ED 10:49 → MEDSURG A 15:42
PROVIDERS: ADMIT Internal Medicine; ATTEND Internal Medicine
PROC: 30233N1 Transfusion of Nonautologous Red Blood Cells into Peripheral Vein, Percutaneous Approach (ICD-10-PCS; principal; 2016-10-08)
PROC: 30233N1 Transfusion of Nonautologous Red Blood Cells into Peripheral Vein, Percutaneous Approach (ICD-10-PCS; 2016-10-09)
DX: N17.9 Acute kidney failure, unspecified (principal); S32.501A Unspecified fracture of right pubis, initial encounter for closed fracture; I42.0 Dilated cardiomyopathy; R60.0 Localized edema; N18.3 Chronic kidney disease, stage 3 (moderate); D64.9 Anemia, unspecified; E86.0 Dehydration; J42 Unspecified chronic bronchitis; F03.90 Unspecified dementia, unspecified severity, without behavioral disturbance, psychotic disturbance, mood disturbance, and anxiety; E11.40 Type 2 diabetes mellitus with diabetic neuropathy, unspecified; I10 Essential (primary) hypertension; E53.8 Deficiency of other specified B group vitamins; E78.5 Hyperlipidemia, unspecified; I73.9 Peripheral vascular disease, unspecified; W19.XXXA Unspecified fall, initial encounter; Z79.01 Long term (current) use of anticoagulants; Z79.899 Other long term (current) drug therapy; Z95.1 Presence of aortocoronary bypass graft
CPT/HCPCS: 36415; 36430; 80053; 81001; 82962; 83036; 85014; 85018; 85025; 85379; 86850; 86900; 86922; 87081; 87086; 94640; 97802; 99284

== ENCOUNTER 2016-12-21 10:43 | Outpatient (CLI) ==
[2016-12-21 13:53] VITALS: BMI 22.1
== END 2016-12-21 10:44 ==
LOC: AMBL 10:43
PROVIDERS: ATTEND Internal Medicine
DX: M54.5 Low back pain (principal); W19.XXXA Unspecified fall, initial encounter

== ENCOUNTER 2016-12-21 10:56 | Inpatient (IN) ==
[2016-12-21 11:38] LABS: BASOPHILS # (AUTO) 0.1 K/uL (0-0.2); BASOPHILS % (AUTO) 0.5 % (0.0-3.0); EOSINOPHILS # (AUTO) 0.1 K/ul (0.0-0.7); EOSINOPHILS % (AUTO) 0.5 % (0.0-7.0); HEMOGLOBIN 11.8 g/dl (14.0-18.0); IMMATURE GRANULOCYTE % (AUTO) 0.6 % (0.0-5.0); LYMPHOCYTES # (AUTO) 1.7 K/uL (0.60-3.4); MEAN CORPUSCULAR HEMOGLOBIN 32.2 pg (27.0-31.0); MEAN CORPUSCULAR HGB CONC 33.7 (31.8-35.4); MEAN CORPUSCULAR VOLUME 95.6 fl (80.0-94.0); MONOCYTES # (AUTO) 0.7 K/uL (0.4-2.0); MONOCYTES % (AUTO) 7.8 (0-10); NEUTROPHILS # (AUTO) 6.8 K/ul (2.0-6.9); NEUTROPHILS % (AUTO) 72.6; PLATELET COUNT 265 10^3/uL (140-440); RED BLOOD COUNT 3.66 10^6/ul (4.70-6.10); WHITE BLOOD COUNT 9.41 K/ul (4.2-10.2)
--- NOTE | 2016-12-21 11:40 | DI ---
EXAM: Chest one view, frontal view only. HISTORY: Cough. COMPARISON: 09/20/2016. FINDINGS: The heart size is mildly enlarged. There has been previous CABG. Atherosclerotic calcif ications are present. There is no pulmonary vascular congestion. The lungs are clear save for stab le biapical scarring. No pleural effusion or pneumothorax is seen. No acute osseous abnormality is identified. Healing left lateral seventh and eighth rib fractures noted. IMPRESSION: No acute cardiopulmonary process.
--- NOTE | 2016-12-21 12:04 | CT ---
EXAM: CT Abdomen without contrast. CT Pelvis without contrast. HISTORY: Initial presentation for low back pain following a fall. COMPARISON: 09/06/2016. TECHNIQUE: Multiple axial images of the abdomen and pelvis were obtained without intravenous contra st. Images were reformatted in the coronal plane. FINDINGS: Please note that evaluation of the abdominal and pelvic structures is limited due to lack of intravenous contrast. Lung bases are clear. Mild superior endplate compression deformity of L1 noted without retropulsion . This is new from prior CT. Degenerative changes present in the spine. There are healing bilateral rib fractures involving the right lateral seventh and left lateral seventh and eighth ribs. Healin g right superior and inferior pubic ramus fractures noted. Healing right sacral alar fracture sugges nadir. Liver demonstrates normal contour. The gallbladder is mildly distended but otherwise unremarkable. Pancreas, spleen, adrenal glands, and kidneys demonstrate normal contour. Exophytic right renal cy st is stable. The bowel is normal in course and caliber without evidence for obstruction or inflammatory process. The appendix is normal. Urinary bladder wall appears thickened, although the bladder is incomplete ly distended. Clips seen adjacent prostate. No free fluid or free air identified. Atherosclerotic calcifications present with clips in the right inguinal region. Iliac artery stents present bilate rally. IMPRESSION: 1. Mild superior endplate compression deformity of L1 which is new from prior CT. No retropulsion identified. 2. Healing bilateral rib fractures, right sacral and right pubic ring fractures. 3. Nonspecific gallbladder distension. Correlate for acute symptoms and consider ultrasound if war ranted. 4. Urinary bladder wall thickening.
[2016-12-21 12:07] LABS: ALANINE AMINOTRANSFERASE 24 U/L (12-78); ALBUMIN 2.8 g/dL (3.4-5.0); ALBUMIN/GLOBULIN RATIO 0.76; ALKALINE PHOSPHATASE 96 U/L (56-119); ANION GAP 17.2; ASPARTATE AMINO TRANSFERASE 24 U/L (15-37); BILIRUBIN,TOTAL 0.53 mg/dL (0.00-1.20); BLOOD UREA NITROGEN 9 mg/dL (7-18); BUN/CREATININE RATIO 8.41; CALCIUM 8.8 mg/dL (8.2-10.2); CARBON DIOXIDE 20 mmol/L (23-31); CHLORIDE 107 mmol/L (98-107); CREATINE KINASE 25 U/L; CREATININE 1.07 mg/dL (0.60-1.10); GLUCOSE 123 mg/dL (82-115); POTASSIUM 4.2 mmol/L (3.5-5.1); SODIUM 140 mmol/L (136-145); TOTAL PROTEIN 6.5 g/dL (5.8-8.1)
--- NOTE | 2016-12-21 12:08 | CT ---
EXAM: CT lumbar spine without contrast. HISTORY: Initial presentation for low back pain following a fall. COMPARISON: 09/14/2016. TECHNIQUE: Multiple axial images of the lumbar spine were obtained without intravenous contrast. I mages were reformatted in the sagittal and coronal planes. FINDINGS: Mild superior endplate compression deformity of L1 is new from prior study. No retropuls ion identified. Prevertebral body heights are otherwise normal. Slight retrolisthesis of L3-L4 not ed. Disc heights are normal. Broad-based disc bulge, facet arthropathy and thickening of ligamentu m flavum cause mild central canal stenosis at L2-3 and moderate central canal stenosis at L3-4 and L 4-5. Paravertebral soft tissues are without acute abnormality. Atherosclerotic calcifications are present. Healing right sacral alar fracture noted. IMPRESSION: 1. New mild superior endplate compression deformity of L1. 2. Healing right sacral fracture.
[2016-12-21] MEDS ORDERED: NITROSTAT SL PRN (12:32)
--- NOTE | 2016-12-21 12:42 | ED.PDOC ---
General ED Provider: Dr. MARII RODRIGUEZ Chief Complaint: Back Pain Stated Complaint: back pain Time Seen by Physician: 11:00 (fall ground level seen with nursing staff at all times ) Mode of Arrival: Stretcher Information Source: Patient Exam Limitations: No limitations Primary Care Provider: SANG GRANT Nursing and Triage Documentation Reviewed and Agree: Yes Musculoskeletal Complaint Exam - Back Pain Complaint/Exam Mechanism of Injury: Reports: Trauma Onset/Duration: fell this morning at 4 am Symptoms Are: Still present Timing: Constant Episodes Lasting: Hours Initial Severity: Moderate Current Severity: Moderate Character: Reports: Dull Aggravating: Reports: None Alleviating: Reports: Rest, Position Associated Signs and Symptoms: Denies: Swelling, Redness, Bruising, Fever, Weakness, Numbness, Tingling, Abdominal pain, Flank pain, Bladder incontinence, Bowel incontinence, Weight loss, Pain with weight bearing Focal Tenderness: No Paraspinal Muscle Tenderness: Yes Paraspinal Muscle Spasm: Yes Scoliosis: No Lordosis: No Kyphosis: No Review of Systems - Review Of Systems Constitutional: Reports: No symptoms Eyes: Reports: No symptoms Ears, Nose, Mouth, Throat: Reports: No symptoms Respiratory: Reports: No symptoms Cardiac: Reports: No symptoms GI: Reports: No symptoms : Reports: No symptoms Musculoskeletal: Reports: Back pain Skin: Reports: No symptoms Neurological: Reports: No symptoms Endocrine: Reports: No symptoms Hematologic/Lymphatic: Reports: No symptoms All Other Systems: Reviewed and Negative Past Medical History - Past Medical History Endocrine: Reports: DM 2 ([Januvia]50mgPODAILY;[Humulin R]1-100 PRN ), Dyslipidemia ( [Fenofibrate] 145 mg PO DAILY 08/21/16 ; [Lipitor] 10 mg PO BEDTIME 08/21/16) Cardiovascular: Reports: CAD (aspirin plavix), Hypertension (HYPOTENSION; PERIPHERAL VASCULAR DISEASE;;[Zestril] 5 mg PO DAILY), CHF ([Lasix Tab] 20 mg PO MWFSA), Other ([Nitrostat] 0.4 mg SL Q5MIN) Respiratory: Reports: COPD ([Duoneb] 1 vial NEB RTBID), Other ([Claritin] 10 mg PO DAILY) Hematological: Reports: Unknown Gastrointestinal: Reports: Other ( [Protonix] 40 mg PO BIDAC) Genitourinary: Reports: Unknown Neuro/Psych: Reports: Anxiety ([Xanax] 0.25 mg PO BID), Depression ([Lexapro] 10 mg PO DAILY), Dementia ( [Aricept] 10 mg PO DAILY 08/21/16 ;;[Namenda] 10 mg PO BEDTIME), Other (ATAXIA ) Musculoskeletal: Reports: Other (Gabapentin 300 mg PO TID 08/21/16;;Hydrocodon- Acetaminophen 5-325) Cancer: Reports: Unknown Other Pertinent Past Medical History: ATAXIA HYPOTENSION PERIPHERAL VASCULAR DISEASE - Surgical History General Surgical History: Reports: CABG (AORTOCORONARY BYPASS GRAFT) - Family History Family History: Reports: Unknown - Social History Smoking Status: Former smoker Hx Substance Use: No Alcohol Screening: Occasionally Physical Exam - Physical Exam Appearance: Well-appearing, No pain distress, Well-nourished Eyes: ELIAS, EOMI, Conjunctiva clear ENT: Ears normal, Nose normal, Oropharynx normal Respiratory: Airway patent, Breath sounds clear, Breath sounds equal, Respirations nonlabored Cardiovascular: RRR, Pulses normal, No rub, No murmur GI/: Soft, Nontender, No masses, Bowel sounds normal, No Organomegaly Musculoskeletal: Normal strength, ROM intact, No edema, No calf tenderness Skin: Warm, Dry, Normal color Neurological: Sensation intact, Motor intact, Reflexes intact, Cranial nerves intact, Alert, Oriented Psychiatric: Affect appropriate, Mood appropriate Critical Care Note - Critical Care Note Total Time (mins): 0 Course - Course Hematology/Chemistry: 12/21/16 11:20 12/21/16 11:20 Orders, Labs, Meds: Lab Review 12/21/16 11:20 WBC 9.41 RBC 3.66 L Hgb 11.8 L Hct 35.0 L MCV 95.6 H MCH 32.2 H MCHC 33.7 RDW Coeff of Tabatha 15.2 H Plt Count 265 Immature Gran % (Auto) 0.6 Neut % (Auto) 72.6 Lymph % (Auto) 18.0 [place] % (Auto) 7.8 Eos % (Auto) 0.5 Baso % (Auto) 0.5 Immature Gran # (Auto) 0.1 Neut # 6.8 Lymph # 1.7 [place] # 0.7 Eos # 0.1 Baso # 0.1 Sodium 140 Potassium 4.2 Chloride 107 Carbon Dioxide 20 L Anion Gap 17.2 BUN 9 Creatinine 1.07 Estimated GFR (MDRD) 66.00 BUN/Creatinine Ratio 8.41 Glucose 123 H Calcium 8.8 Total Bilirubin 0.53 AST 24 ALT 24 Alkaline Phosphatase 96 Total Creatine Kinase 25 Troponin I < 0.0100 Total Protein 6.5 Albumin 2.8 L Globulin 3.7 Albumin/Globulin Ratio 0.76 Orders Category Date Time Status ADMIT PATIENT INPATIENT .TO [facility] (MONITORED BED) ADMISSION 12/21/16 12: 30 Ordered EKG-(ED ONLY) Stat CARDIO 12/21/16 11:08 Completed EKG-(IP & OP ONLY) DAILY CARDIO 12/22/16 06:00 Ordered EKG-(IP & OP ONLY) DAILY CARDIO 12/23/16 06:00 Ordered EKG-(IP & OP ONLY) DAILY CARDIO 12/24/16 06:00 Ordered GIVE HS SNACK 2100 CARE 12/21/16 12:36 Ordered INTAKE & OUTPUT Q8HR CARE 12/21/16 12:35 Ordered TELEMETRY MONITORING TELE CARE 12/21/16 12:31 Ordered VITAL SIGNS Q8HR CARE 12/21/16 12:30 Ordered ADA 1800 MELODY. DIET DIETARY 12/21/16 Lunch Ordered HS SNACK DIETARY 12/21/16 Dinner Ordered BLOOD CULTURE Stat LAB 12/21/16 11:20 Received CBC W/ AUTO DIFF DAILY@0600 LAB 12/22/16 06:00 Ordered CBC W/ AUTO DIFF DAILY@0600 LAB 12/23/16 06:00 Ordered CBC W/ AUTO DIFF DAILY@0600 LAB 12/24/16 06:00 Ordered CBC W/ AUTO DIFF DAILY@0600 LAB 12/25/16 06:00 Ordered CBC W/ AUTO DIFF DAILY@0600 LAB 12/26/16 06:00 Ordered CBC W/ AUTO DIFF DAILY@0600 LAB 12/27/16 06:00 Ordered CBC W/ AUTO DIFF DAILY@0600 LAB 12/28/16 06:00 Ordered CBC W/ AUTO DIFF DAILY@0600 LAB 12/29/16 06:00 Ordered CBC W/ AUTO DIFF DAILY@0600 LAB 12/30/16 06:00 Ordered CBC W/ AUTO DIFF DAILY@0600 LAB 12/31/16 06:00 Ordered CBC W/ AUTO DIFF DAILY@0600 LAB 01/01/17 06:00 Ordered CBC W/ AUTO DIFF DAILY@0600 LAB 01/02/17 06:00 Ordered CBC W/ AUTO DIFF DAILY@0600 LAB 01/03/17 06:00 Ordered CBC W/ AUTO DIFF DAILY@0600 LAB 01/04/17 06:00 Ordered CBC W/ AUTO DIFF DAILY@0600 LAB 01/05/17 06:00 Ordered CBC W/ AUTO DIFF DAILY@0600 LAB 01/06/17 06:00 Ordered CBC W/ AUTO DIFF DAILY@0600 LAB 01/07/17 06:00 Ordered CBC W/ AUTO DIFF DAILY@0600 LAB 01/08/17 06:00 Ordered CBC W/ AUTO DIFF DAILY@0600 LAB 01/09/17 06:00 Ordered CBC W/ AUTO DIFF DAILY@0600 LAB 01/10/17 06:00 Ordered CBC W/ AUTO DIFF Stat LAB 12/21/16 11:20 Completed COMPREHENSIVE METABOLIC PANEL DAILY@0600 LAB 12/22/16 06:00 Ordered COMPREHENSIVE METABOLIC PANEL DAILY@0600 LAB 12/23/16 06:00 Ordered COMPREHENSIVE METABOLIC PANEL DAILY@0600 LAB 12/24/16 06:00 Ordered COMPREHENSIVE METABOLIC PANEL DAILY@0600 LAB 12/25/16 06:00 Ordered COMPREHENSIVE METABOLIC PANEL DAILY@0600 LAB 12/26/16 06:00 Ordered COMPREHENSIVE METABOLIC PANEL DAILY@0600 LAB 12/27/16 06:00 Ordered COMPREHENSIVE METABOLIC PANEL DAILY@0600 LAB 12/28/16 06:00 Ordered COMPREHENSIVE METABOLIC PANEL DAILY@0600 LAB 12/29/16 06:00 Ordered COMPREHENSIVE METABOLIC PANEL DAILY@0600 LAB 12/30/16 06:00 Ordered COMPREHENSIVE METABOLIC PANEL DAILY@0600 LAB 12/31/16 06:00 Ordered COMPREHENSIVE METABOLIC PANEL DAILY@0600 LAB 01/01/17 06:00 Ordered COMPREHENSIVE METABOLIC PANEL DAILY@0600 LAB 01/02/17 06:00 Ordered COMPREHENSIVE METABOLIC PANEL DAILY@0600 LAB 01/03/17 06:00 Ordered COMPREHENSIVE METABOLIC PANEL DAILY@0600 LAB 01/04/17 06:00 Ordered COMPREHENSIVE METABOLIC PANEL DAILY@0600 LAB 01/05/17 06:00 Ordered COMPREHENSIVE METABOLIC PANEL DAILY@0600 LAB 01/06/17 06:00 Ordered COMPREHENSIVE METABOLIC PANEL DAILY@0600 LAB 01/07/17 06:00 Ordered COMPREHENSIVE METABOLIC PANEL DAILY@0600 LAB 01/08/17 06:00 Ordered COMPREHENSIVE METABOLIC PANEL DAILY@0600 LAB 01/09/17 06:00 Ordered COMPREHENSIVE METABOLIC PANEL DAILY@0600 LAB 01/10/17 06:00 Ordered COMPREHENSIVE METABOLIC PANEL Stat LAB 12/21/16 11:20 Completed CREATINE KINASE Stat LAB 12/21/16 11:20 Completed TROPONIN I Stat LAB 12/21/16 11:20 Completed URINALYSIS C & S IF INDICATED Stat LAB 12/21/16 11:07 Uncollected Alprazolam [Xanax] MEDS 12/22/16 09:00 Ordered 0.25 mg PO DAILY Aspirin [Aspirin EC] MEDS 12/22/16 08:00 Ordered 81 mg PO DAILYWM Atorvastatin Calcium [Lipitor] MEDS 12/21/16 21:00 Ordered 10 mg PO BEDTIME Clopidogrel Bisulfate [Plavix] MEDS 12/22/16 09:00 Ordered 75 mg PO DAILY Furosemide [Lasix Tab] MEDS 12/22/16 09:00 Ordered 20 mg PO DAILY Insulin Regular, Human [Humulin R] MEDS 12/21/16 12:38 Ordered See Protocol SUBCUT PRN PRN Ipratropium/Albuterol Neb [Duoneb] MEDS 12/21/16 18:00 Ordered 1 vial NEB RTBID Ipratropium/Albuterol Neb [Duoneb] MEDS 12/21/16 18:00 Ordered 1 vial NEB RTBID Lisinopril [Zestril] MEDS 12/22/16 09:00 Ordered 20 mg PO DAILY Morphine Sulfate [Morphine 4 mg/ml Syringe] MEDS 12/21/16 13:00 Ordered 2 mg IVP Q6H Nitroglycerin [Nitrostat] MEDS 12/21/16 12:32 Ordered 0.4 mg SL Q5MIN X 3 DOSES PRN Sodium Chloride 0.9% [Sodium Chloride] 1,000 ml MEDS 12/21/16 12:30 Ordered IV 75 mls/hr CHEST, 1V AP ONLY Stat RADS 12/21/16 11:[address] ABDOMEN/PELVIS WO CONTRAST Stat RADS 12/21/16 11:[address] LUMBAR SPINE W/O CONTRAST Stat RADS 12/21/16 11:07 Completed Medications Generic Name Dose Route Start Last Admin Trade Name Freq PRN Reason Stop Dose Admin Albuterol/Ipratropium 1 vial 12/21/16 18:00 Duoneb NEB RTBID JOE Alprazolam 0.25 mg 12/22/16 09:00 Xanax PO DAILY [facility] Aspirin 81 mg 12/22/16 08:00 Aspirin Ec PO DAILYWM [facility] Atorvastatin Calcium 10 mg 12/21/16 21:00 Lipitor PO BEDTIME [facility] Clopidogrel Bisulfate 75 mg 12/22/16 09:00 Plavix PO DAILY [facility] Furosemide 20 mg 12/22/16 09:00 Lasix Tab PO DAILY [facility] Sodium Chloride 1,000 mls @ 75 mls/hr 12/21/16 12:30 Sodium Chloride IV .[id number] [facility] Lisinopril 20 mg 12/22/16 09:00 Zestril PO DAILY [facility] Morphine Sulfate 2 mg 12/21/16 13:00 Morphine 4 Mg/Ml Syringe IVP Q6H JOE Nitroglycerin 0.4 mg 12/21/16 12:32 Nitrostat SL Q5MIN X 3 DOSES PRN Angina Discontinued Medications Generic Name Dose Route Start Last Admin Trade Name Freq PRN Reason Stop Dose Admin Albuterol/Ipratropium 1 vial 12/21/16 18:00 Duoneb NEB RTBID [facility] Vital Signs: Temp Pulse Resp BP Pulse Ox 12/21/16 10:58 99.6 F 85 20 115/86 97 Departure - Departure Time of Disposition: 12:42 Disposition: ADMITTED INPATIENT Discharge Problem: Backache Instructions: Back Pain (ED) Condition: Good Pt referred to PMD for follow-up: No Additional Instructions: Please call your Family Physician as soon as possible to schedule a follow-up appointment. Allergies/Adverse Reactions: Allergies megestrol [From Megace] Adverse Reaction (Mild, Verified 12/21/16 11:13) Diarrhea Penicillins Adverse Reaction (Unknown, Verified 12/21/16 11:13) Unknown procaine [From Novocain] Adverse Reaction (Unknown, Verified 12/21/16 11:13) Unknown Home Medications: Ambulatory Orders Alprazolam [Xanax] 0.25 mg PO DAILY 08/21/16 Aspirin [Aspirin EC] 81 mg PO DAILYWM 08/21/16 Atorvastatin Calcium [Lipitor] 10 mg PO BEDTIME 08/21/16 Clopidogrel Bisulfate [Plavix] 75 mg PO DAILY 08/21/16 Donepezil HCl [Aricept] 10 mg PO DAILY 08/21/16 Hydrocodone/Acetaminophen [Hydrocodon-Acetaminophen 5-325] 1 tab PO TID Loratadine [Claritin] 10 mg PO DAILY 08/21/16 Nitroglycerin [Nitrostat] 0.4 mg SL Q5MIN X 3 DOSES PRN 08/21/16 Ipratropium/Albuterol Neb [Duoneb] 1 vial [facility] RTBID #[id number] vial.neb 09/07/16 Cyanocobalamin (Vitamin B-12) [Cyanocobalamin Injection] 1,000 mcg IJ MONTHLY Escitalopram Oxalate [Lexapro] 20 mg PO DAILY 12/21/16 Ferrous Sulfate 325 mg PO BID 12/21/16 Furosemide [Lasix Tab] 20 mg PO DAILY 12/21/16 Gabapentin 300 mg PO TID 12/21/16 Ipratropium/Albuterol Neb [Duoneb] 1 vial NEB RTBID 12/21/16 Lisinopril [Zestril] 20 mg PO DAILY 12/21/16 Sitagliptin Phosphate [Januvia] 50 mg PO DAILY 12/21/16
[2016-12-21 12:45] LABS: BILIRUBIN,URINE Negative (NEGATIVE); KETONES,URINE Negative (NEGATIVE); LEUKOCYTE ESTERASE ,URINE Negative (NEGATIVE); NITRITE,URINE Negative (NEGATIVE); PH,URINE 5.5 (5-9); PROTEIN,URINE 1+ (NEGATIVE); URINE, BLOOD Negative (NEGATIVE)
[2016-12-21 12:46] LABS: ADD URINE MICROSCOPIC YES
[2016-12-21] MEDS: MORPHINE 4 MG/ML SYRINGE IVP SCH ×2 (13:18→20:21)
[2016-12-21 13:53] VITALS: BMI 22.1
[2016-12-21] MEDS: SODIUM CHLORIDE 1,000 ML IV SCH (13:54)
[2016-12-21] MEDS ORDERED: DUONEB NEB SCH (18:00)
[2016-12-21] MEDS: LIPITOR PO SCH (20:24)
[2016-12-21] MEDS: HUMULIN R SUBCUT PRN (20:32)
[2016-12-21] MEDS: TORADOL IVP SCH (21:26)
[2016-12-21] MEDS: DUONEB NEB SCH (22:34)
[2016-12-22] MEDS: MORPHINE 4 MG/ML SYRINGE IVP SCH ×4 (01:42→19:36)
[2016-12-22] MEDS: SODIUM CHLORIDE 1,000 ML IV SCH ×2 (02:14→20:01)
[2016-12-22] MEDS: DUONEB NEB SCH ×2 (05:00→17:06)
[2016-12-22 05:46] LABS: BASOPHILS # (AUTO) 0.1 K/uL (0-0.2); BASOPHILS % (AUTO) 0.8 % (0.0-3.0); EOSINOPHILS # (AUTO) 0.2 K/ul (0.0-0.7); EOSINOPHILS % (AUTO) 2.6 % (0.0-7.0); HEMATOCRIT 32.4 % (42.0-52.0); HEMOGLOBIN 10.6 g/dl (14.0-18.0); IMMATURE GRANULOCYTE % (AUTO) 0.9 % (0.0-5.0); LYMPHOCYTES # (AUTO) 2.8 K/uL (0.60-3.4); LYMPHOCYTES % (AUTO) 43.4 (10.0-50.0); MEAN CORPUSCULAR HEMOGLOBIN 32.1 pg (27.0-31.0); MEAN CORPUSCULAR HGB CONC 32.7 (31.8-35.4); MEAN CORPUSCULAR VOLUME 98.2 fl (80.0-94.0); MONOCYTES # (AUTO) 0.7 K/uL (0.4-2.0); MONOCYTES % (AUTO) 9.9 (0-10); NEUTROPHILS # (AUTO) 2.8 K/ul (2.0-6.9); NEUTROPHILS % (AUTO) 42.4; PLATELET COUNT 237 10^3/uL (140-440); WHITE BLOOD COUNT 6.55 K/ul (4.2-10.2)
[2016-12-22 06:08] LABS: ALBUMIN 2.4 g/dL (3.4-5.0); ALBUMIN/GLOBULIN RATIO 0.73; ANION GAP 12.6; BILIRUBIN,TOTAL 0.47 mg/dL (0.00-1.20); BUN/CREATININE RATIO 9.17; CALCIUM 8.3 mg/dL (8.2-10.2); CREATININE 1.09 mg/dL (0.60-1.10); POTASSIUM 3.6 mmol/L (3.5-5.1); TOTAL PROTEIN 5.7 g/dL (5.8-8.1)
[2016-12-22] MEDS: LASIX TAB PO SCH (06:14)
[2016-12-22] MEDS: ZESTRIL PO SCH (08:29)
[2016-12-22] MEDS: ASPIRIN EC PO SCH (08:29)
[2016-12-22] MEDS: PLAVIX PO SCH (08:29)
[2016-12-22] MEDS: XANAX PO SCH (08:29)
[2016-12-22] MEDS: TORADOL IVP SCH ×2 (08:36→22:08)
--- NOTE | 2016-12-22 10:47 | HP ---
DATE OF SERVICE: 12/21/16 REASON FOR HOSPITALIZATION: Back pain HISTORY OF PRESENT ILLNESS: 81-year-old white male who lives at home with help of the daughter and disabled , fell at 4 o'clock in the morning at home according to the . As for the fall, the patient almost crumbled to the ground when he was trying to get up. It wasn't a hard fall. The patient laid there on the floor and was moving all extremities. According to the daughter, she brought a gel mattress and he was transferred to the gel mattress. Later on he was brought to the emergency room. The ER physician examined him and had found no neurological deficit. The patient had a CT scan done that showed small acute superior endplate compression fracture along with other compression fracture of his back. 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 When I checked out this patient in the regular room in the hospital he was eating, very comfortable, talking, denied any pain, was moving all his extremities. REVIEW OF SYSTEMS: CONSTITUTIONAL: Fatigue and weakness according to the daughter. No night sweats. No fever or chills. HEENT: Eyes: No visual changes. No eye pain. No eye discharge. ENT: No runny nose. No epistaxis. No sinus pain. No sore throat. No odynophagia. No ear pain. No congestion. RESPIRATORY: Mild cough as usual. No hemoptysis. CARDIOVASCULAR: No angina symptoms. No CHF symptoms. No atypical chest pain for CAD. No palpitations. No shortness of breath. No PND, no orthopnea. GASTROINTESTINAL: Appetite is not that good but he eats fairly good at times. No abdominal pain. No nausea or vomiting. No diarrhea or constipation. No hematemesis. No hematochezia. GENITOURINARY: No urgency. No frequency. No dysuria. No hematuria. No obstructive symptoms. No discharge. No pain. No significant abnormal bleeding. MUSCULOSKELETAL: Weakness of the legs, is wobbly on the walker, shakey with the walker. NEUROLOGICAL: No headache. No neck pain. No syncope. No seizures. No dizziness. PSYCHIATRIC: Not anxious. No depression. No suicidal thoughts. No homicidal thoughts. SKIN: No rash. No lesions. No wounds. ENDOCRINE: No unexplained weight loss. No weight gain. HEMATOLOGIC/LYMPHATIC: No anemia. No purpura. No petechiae. No prolonged or excessive bleeding. No palpable lymph nodes. PERSONAL/FAMILY/SOCIAL HISTORY: The patient lives at home. He is a nonsmoker. No alcohol abuse. He walks with a walker a few steps; unable to dress himself or bathe himself. He has dementia for the past 2 to 3 years to the point where he needs assistance for his financial affairs. 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 PAST MEDICAL/SURGICAL PROBLEMS: Dementia Anxiety disorder Dyslipidemia TIAs Generalized severe osteoarthritis including the back Coronary artery disease Depression Anemia Hypertension Diabetes mellitus Neuropathy MEDICATIONS: Aspirin Clopidogrel Hydrocodone Nitroglycerin Lasix Duoneb Xanax Humulin N Zestril Atorvastatin Aricept Hydrocodone Loratadine Lexapro Gabapentin Lisinopril Sitagliptin ALLERGIES: MEGESTROL, PENICILLIN, PROCAINE PHYSICAL EXAMINATION: GENERAL: The patient is oriented to time, place and person. VITAL SIGNS: Temperature 99.6, pulse 85, respiratory rate 20, BP 115/86, pulse ox 97%. HEENT: Head normocephalic, atraumatic. Eyes: Extraocular muscles are intact. Pupils are equal, round and reactive to light and accommodation. Sclera nonicteric. Ears: No lesions. Nose appeared normal. Throat: No exudate or erythema. NECK: Supple. No JVP, no carotid bruit. No thyromegaly. LUNGS: Decreased breath sounds. Percussion note normal. Chest symmetrical. HEART: S1, S2, no S3. No murmurs. No cyanosis or clubbing. No ascites. Pulses: Dorsalis pedis and posterior tibial pulses feeble bilaterally. ABDOMEN: Soft. Nontender. Bowel sounds active. No CVA tenderness. No mass felt. EXTREMITIES: Trace edema. Full range of motion of all extremities, equal. NEUROLOGIC: No focal deficit. Cranial nerves II through XII are grossly intact. No headache, no double vision or headache. SKIN: Not dry. Intact. Turgor - normal. LYMPHATIC: No palpable lymph nodes/no lymphedema. MUSCULOSKELETAL: Normal joints with no swelling. Muscle tone is normal. LABS: WBC count 9,400, normal differential; hemoglobin 11.6, hematocrit 35. Creatinine 1, BUN 9, liver profile normal. Troponin negative. EKG sinus rhythm, prolonged QT. ASSESSMENT: 1. New small superior fracture of L1 with back pain. 2. Compression fracture of the spine. 3. Chronic lung disease. 4. Coronary artery disease. 5. Peripheral arterial disease. 6. Dyslipidemia. 7. Hypertension. 8. Depression. PLAN: 1. IV Morphine as ordered, total 30 mg IV q.12 2. Continue the rest of the medications as before. 3. Telemetry. 4. Monitor CBC and CMP. 5. [facility] will be continued once the patient is discharged. The patient will also be put on Physical Therapy once his pain is under control with the back problems. CONDITION: Stable. TIME SPENT: More than 70 minutes. MTDD
--- NOTE | 2016-12-22 11:04 | PCM.PROG ---
Attending Provider: ATTENDING PROVIDER: Dr. SANG GRANT DATE OF SERVICE: 12/22/16 SUBJECTIVE: This 81 year old WHITE/ M was hospitalized 12/21/16. The patient is admitted with back pain. The patient had fallen at home, crumbled down - did not have a hard fall shows L1 new small superior end fracture stable. The pain is much less. REVIEW OF SYSTEMS: CONSTITUTIONAL: No night sweats. No fatigue, malaise, lethargy. No fever or chills. HEENT: Eyes: No visual changes. No eye pain. No eye discharge. ENT: No runny nose. No epistaxis. No sinus pain. No odynophagia. No congestion. RESPIRATORY: No cough, no congestion. No hemoptysis. CARDIOVASCULAR: No angina symptoms. No CHF symptoms. No atypical chest pain for CAD. No palpitations. No shortness of breath. GASTROINTESTINAL: No abdominal pain. No nausea or vomiting. No diarrhea or constipation. No hematemesis. No hematochezia. GENITOURINARY: No urgency. No frequency. No dysuria. No hematuria. No obstructive symptoms. No discharge. No pain. No significant abnormal bleeding. MUSCULOSKELETAL: Back soreness. NEUROLOGICAL: Awake, alert, oriented to time, place and person. No headache. No neck pain. No syncope. No seizures. No dizziness. PSYCHIATRIC: Not anxious. No depression. No suicidal thoughts. No homicidal thoughts. SKIN: No rash. No lesions. No wounds. ENDOCRINE: No unexplained weight loss. No weight gain. HEMATOLOGIC/LYMPHATIC: No anemia. No purpura. No petechiae. No prolonged or excessive bleeding. No palpable lymph nodes. PHYSICAL EXAMINATION: GENERAL: The patient is awake, alert and oriented, lying/sitting in bed in no distress. VITAL SIGNS: Temperature 97.1 F, Pulse 88, Respiratory Rate 24, BP 150/80, Pulse Ox 98% HEENT: Head normocephalic, atraumatic. Eyes: Extraocular muscles are intact. Pupils are equal, round and reactive to light and accommodation. Ears: No lesions. Nose appeared normal. Throat: No exudate or erythema. NECK: Supple. No JVD, no carotid bruit. No lymphadenopathy or thyromegaly. LUNGS: Decreased breath sounds. Clear to auscultation. Percussion note normal. Chest symmetrical. HEART: S1, S2, no S3. No murmurs. No cyanosis or clubbing. No ascites. Pulses: Dorsalis pedis and posterior tibial pulses +1 to +2 both sides. ABDOMEN: Soft. Non-tender. Bowel sounds active. No CVA tenderness. No mass felt. EXTREMITIES: No edema. Full range of motion of all extremities, equal. NEUROLOGIC: No focal deficit. Cranial nerves II through XII are grossly intact. No headache, no double vision or headache. SKIN: Not dry. Intact. Turgor-normal. LYMPHATIC: No palpable lymph nodes/no lymphedema. MUSCULOSKELETAL: Normal joints with no swelling. Muscle tone is normal. LAB REVIEW: 12/22/16 05:10 12/22/16 05:10 12/22/16 05:10: WBC 6.55, RBC 3.30 L, Hgb 10.6 L, Hct 32.4 L, MCV 98.2 H, MCH 32.1 H, MCHC 32.7, RDW Coeff of Tabatha 15.4 H, Plt Count 237, Immature Gran % (Auto ) 0.9, Neut % (Auto) 42.4, Lymph % (Auto) 43.4, Donley % (Auto) 9.9, Eos % (Auto) 2.6, Baso % (Auto) 0.8, Immature Gran # (Auto) 0.1, Neut # 2.8, Lymph # 2.8, Donley # 0.7, Eos # 0.2, Baso # 0.1, Sodium 140, Potassium 3.6, Chloride 108 H, Carbon Dioxide 23, Anion Gap 12.6, BUN 10, Creatinine 1.09, Estimated GFR (MDRD ) 65.00, BUN/Creatinine Ratio 9.17, Glucose 140 H, Calcium 8.3, Total Bilirubin 0.47, AST 13 L, ALT 18, Alkaline Phosphatase 86, Total Protein 5.7 L, Albumin 2.4 L, Globulin 3.3, Albumin/Globulin Ratio 0.73 ASSESSMENT: 1. L1 compression fracture new with multiple other compression fractures 2. Chronic lung disease 3. Dementia 4. Peripheral vascular disease 5. Diabetes 6. Anemia 7. Hypertension PLAN: 1. Continue Toradol 2. PT evaluation 3. Encouraged ambulation 4. Pain control Plan and coordination of the patient's care discussed in the presence of Personal Security Specialist and nurse. CONDITION: Stable SCRIBED BY: CARLENE BERNSTEIN, Moving Consultant scribed while in presence of service performed by Dr. SANG GRANT on 12/22/16 ([id number])
[2016-12-22] MEDS: HUMULIN R SUBCUT PRN ×3 (11:06→20:39)
[2016-12-22] MEDS: LIPITOR PO SCH (20:39)
[2016-12-23] MEDS: MORPHINE 4 MG/ML SYRINGE IVP SCH ×4 (00:29→19:21)
[2016-12-23] MEDS: DUONEB NEB SCH ×2 (05:05→17:06)
[2016-12-23] MEDS: LASIX TAB PO SCH (05:33)
[2016-12-23 05:55] LABS: BASOPHILS # (AUTO) 0.1 K/uL (0-0.2); BASOPHILS % (AUTO) 0.8 % (0.0-3.0); EOSINOPHILS # (AUTO) 0.3 K/ul (0.0-0.7); EOSINOPHILS % (AUTO) 4.1 % (0.0-7.0); HEMATOCRIT 31.9 % (42.0-52.0); HEMOGLOBIN 10.6 g/dl (14.0-18.0); IMMATURE GRANULOCYTE % (AUTO) 0.8 % (0.0-5.0); LYMPHOCYTES # (AUTO) 1.5 K/uL (0.60-3.4); LYMPHOCYTES % (AUTO) 19.4 (10.0-50.0); MEAN CORPUSCULAR HEMOGLOBIN 32.2 pg (27.0-31.0); MEAN CORPUSCULAR HGB CONC 33.2 (31.8-35.4); MONOCYTES # (AUTO) 0.7 K/uL (0.4-2.0); MONOCYTES % (AUTO) 8.4 (0-10); NEUTROPHILS # (AUTO) 5.2 K/ul (2.0-6.9); NEUTROPHILS % (AUTO) 66.5; PLATELET COUNT 221 10^3/uL (140-440); RED BLOOD COUNT 3.29 10^6/ul (4.70-6.10); WHITE BLOOD COUNT 7.87 K/ul (4.2-10.2)
[2016-12-23 06:10] LABS: ALBUMIN 2.4 g/dL (3.4-5.0); ALBUMIN/GLOBULIN RATIO 0.75; ANION GAP 13.8; BILIRUBIN,TOTAL 0.64 mg/dL (0.00-1.20); BUN/CREATININE RATIO 11.57; CALCIUM 8.7 mg/dL (8.2-10.2); CREATININE 0.95 mg/dL (0.60-1.10); POTASSIUM 3.8 mmol/L (3.5-5.1); TOTAL PROTEIN 5.6 g/dL (5.8-8.1)
[2016-12-23] MEDS: HUMULIN R SUBCUT PRN ×2 (06:31→21:21)
[2016-12-23] MEDS: ASPIRIN EC PO SCH (08:17)
[2016-12-23] MEDS: SODIUM CHLORIDE 1,000 ML IV SCH (09:32)
[2016-12-23] MEDS: PLAVIX PO SCH (09:33)
[2016-12-23] MEDS: ZESTRIL PO SCH (09:33)
[2016-12-23] MEDS: XANAX PO SCH (09:33)
[2016-12-23] MEDS: TORADOL IVP SCH ×2 (10:02→21:21)
[2016-12-23] MEDS: LIPITOR PO SCH (21:21)
[2016-12-24] MEDS: MORPHINE 4 MG/ML SYRINGE IVP SCH ×4 (01:10→19:06)
[2016-12-24] MEDS: LASIX TAB PO SCH (05:36)
[2016-12-24] MEDS: DUONEB NEB SCH ×2 (05:40→17:05)
[2016-12-24 07:34] LABS: BASOPHILS % (AUTO) 0.6 % (0.0-3.0); EOSINOPHILS # (AUTO) 0.1 K/ul (0.0-0.7); EOSINOPHILS % (AUTO) 1.9 % (0.0-7.0); HEMATOCRIT 28.8 % (42.0-52.0); HEMOGLOBIN 9.4 g/dl (14.0-18.0); IMMATURE GRANULOCYTE % (AUTO) 0.3 % (0.0-5.0); LYMPHOCYTES # (AUTO) 1.4 K/uL (0.60-3.4); LYMPHOCYTES % (AUTO) 20.7 (10.0-50.0); MEAN CORPUSCULAR HEMOGLOBIN 31.5 pg (27.0-31.0); MEAN CORPUSCULAR HGB CONC 32.6 (31.8-35.4); MEAN CORPUSCULAR VOLUME 96.6 fl (80.0-94.0); MONOCYTES # (AUTO) 0.5 K/uL (0.4-2.0); MONOCYTES % (AUTO) 7.2 (0-10); NEUTROPHILS # (AUTO) 4.8 K/ul (2.0-6.9); NEUTROPHILS % (AUTO) 69.3; PLATELET COUNT 196 10^3/uL (140-440); RED BLOOD COUNT 2.98 10^6/ul (4.70-6.10); WHITE BLOOD COUNT 6.97 K/ul (4.2-10.2)
[2016-12-24 07:55] LABS: ALBUMIN/GLOBULIN RATIO 0.65; ANION GAP 13.1; BILIRUBIN,TOTAL 0.8 mg/dL (0.00-1.20); BUN/CREATININE RATIO 16.36; CALCIUM 8.1 mg/dL (8.2-10.2); CREATININE 1.1 mg/dL (0.60-1.10); POTASSIUM 4.1 mmol/L (3.5-5.1); TOTAL PROTEIN 5.1 g/dL (5.8-8.1)
[2016-12-24] MEDS: ASPIRIN EC PO SCH (08:54)
[2016-12-24] MEDS: PLAVIX PO SCH (08:54)
[2016-12-24] MEDS: ZESTRIL PO SCH (08:54)
[2016-12-24] MEDS: XANAX PO SCH (08:54)
[2016-12-24] MEDS: TORADOL IVP SCH ×2 (09:04→21:04)
[2016-12-24] MEDS: HUMULIN R SUBCUT PRN ×2 (11:54→21:05)
[2016-12-24] MEDS: LIPITOR PO SCH (21:05)
[2016-12-25] MEDS: MORPHINE 4 MG/ML SYRINGE IVP SCH ×4 (01:47→18:47)
[2016-12-25] MEDS: DUONEB NEB SCH ×2 (05:11→17:05)
[2016-12-25] MEDS: LASIX TAB PO SCH (05:31)
[2016-12-25 05:47] LABS: HEMATOCRIT 29.6 % (42.0-52.0); HEMOGLOBIN 9.7 g/dl (14.0-18.0); MEAN CORPUSCULAR HEMOGLOBIN 31.9 pg (27.0-31.0); MEAN CORPUSCULAR HGB CONC 32.8 (31.8-35.4); MEAN CORPUSCULAR VOLUME 97.4 fl (80.0-94.0); PLATELET COUNT 196 10^3/uL (140-440); RED BLOOD COUNT 3.04 10^6/ul (4.70-6.10); WHITE BLOOD COUNT 8.84 K/ul (4.2-10.2)
[2016-12-25 05:50] LABS: ANISOCYTOSIS NOT PRESENT (NOT PRESENT)
[2016-12-25 06:05] LABS: ALBUMIN/GLOBULIN RATIO 0.67; ANION GAP 12.2; BILIRUBIN,TOTAL 1.18 mg/dL (0.00-1.20); BUN/CREATININE RATIO 18.97; CALCIUM 8.3 mg/dL (8.2-10.2); CREATININE 1.37 mg/dL (0.60-1.10); POTASSIUM 4.2 mmol/L (3.5-5.1)
[2016-12-25] MEDS ORDERED: CITRATE OF MAGNESIA PO STA (07:54)
[2016-12-25] MEDS: ZESTRIL PO SCH (08:08)
[2016-12-25] MEDS: XANAX PO SCH (08:08)
[2016-12-25] MEDS: PLAVIX PO SCH (08:09)
[2016-12-25] MEDS: ASPIRIN EC PO SCH (08:09)
[2016-12-25] MEDS: TORADOL IVP SCH ×2 (08:48→20:34)
--- NOTE | 2016-12-25 09:03 | PN ---
DATE OF SERVICE: 12/24/16 SUBJECTIVE: The patient is an 81 year old white male hospitalized with fall. The patient had [id number] fraction and the patient is feeling a lot better. He is up and about with walker. He needs some assistance. The patient is confused at time but mostly able to take care of himself and do activity of daily living. He stays at home with help of daughter and . His is disabled. REVIEW OF SYSTEMS: CONSTITUTIONAL: No night sweats. No fatigue, malaise, lethargy. No fever or chills. HEENT: Eyes: No visual changes. No eye pain. No eye discharge. ENT: No runny nose. No epistaxis. No sinus pain. No sore throat. No odynophagia. No congestion. RESPIRATORY: No cough, no congestion. No hemoptysis. CARDIOVASCULAR: No angina symptoms. No CHF symptoms. No atypical chest pain for CAD. No palpitations. No shortness of breath. No PND. No orthopnea. GASTROINTESTINAL: No abdominal pain. No nausea or vomiting. No diarrhea or constipation. No hematemesis. No hematochezia. GENITOURINARY: No urgency. No frequency. No dysuria. No hematuria. No obstructive symptoms. No discharge. No pain. No significant abnormal bleeding. MUSCULOSKELETAL: No musculoskeletal pain; no joint swelling. Mild back pain rated 2-3 on scale of 1-10 when he is resting. NEUROLOGICAL: No headache. No neck pain. No syncope. No seizures. No dizziness. PSYCHIATRIC: Not anxious. No depression. No suicidal thoughts. No homicidal thoughts. Forgetful. SKIN: No rash. No lesions. No wounds. ENDOCRINE: No unexplained weight loss. No weight gain. HEMATOLOGIC/LYMPHATIC: No anemia. No purpura. No petechiae. No prolonged or excessive bleeding. No palpable lymph nodes. PHYSICAL EXAMINATION: GENERAL: The patient is oriented to person. VITAL SIGNS: Temperature 97.7, pulse 86, respiratory rate 18, blood pressure 110/60 and pulse ox 99%. HEENT: Head normocephalic, atraumatic. Eyes: Extraocular muscles are intact. Pupils are equal, round and reactive to light and accommodation. Ears: No lesions. Nose appeared normal. Throat: No exudate or erythema. NECK: Supple. No JVD, no carotid bruit. No lymphadenopathy or thyromegaly. LUNGS: Decreased breath. Clear to auscultation. Percussion note normal. Chest symmetrical. HEART: S1, S2, no S3. No murmurs. No cyanosis or clubbing. No ascites. Pulses: Dorsalis pedis and posterior tibial pulses +1 to +2 both sides. ABDOMEN: Soft. Nontender. Bowel sounds active. No CVA tenderness. No mass felt. EXTREMITIES: No edema. Full range of motion of all extremities, equal. NEUROLOGIC: No focal deficit. Cranial nerves II through XII are grossly intact. No headache, no double vision or headache. SKIN: Not dry. Intact. Turgor - normal. LYMPHATIC: No palpable lymph nodes/no lymphedema. MUSCULOSKELETAL: Normal joints with no swelling. Muscle tone is normal. LABS: Hgb 9.4, hct 28, WBC 6,900 normal differential, creatinine 1.1, BUN 18, potassium 4.1. ASSESSMENT: 1. DJD of the spine with sciatica 2. Dementia 3. Chronic lung disease. TIME SPENT: More than 30 minutes. Plan and coordination of the patient's care discussed in the presence of nurse. PINKY
--- NOTE | 2016-12-25 09:28 | PN ---
DATE OF SERVICE: 12/23/16 SUBJECTIVE: The patient is an 81 year old male who was hospitalized after fall. The patient had mild compression fracture of L1. The patient's pain is much less according to the physical therapist. The patient was able to walk a long distance with not much pain at all. He walked with a walker without much help at all and there is nothing much he could do about it. REVIEW OF SYSTEMS: CONSTITUTIONAL: No night sweats. No fatigue, malaise, lethargy. No fever or chills. HEENT: Eyes: No visual changes. No eye pain. No eye discharge. ENT: No runny nose. No epistaxis. No sinus pain. No sore throat. No odynophagia. No congestion. RESPIRATORY: No cough, no congestion. No hemoptysis. CARDIOVASCULAR: No angina symptoms. No CHF symptoms. No atypical chest pain for CAD. No palpitations. No shortness of breath. GASTROINTESTINAL: No abdominal pain. No nausea or vomiting. No diarrhea or constipation. No hematemesis. No hematochezia. No PND. No orthopnea. GENITOURINARY: No urgency. No frequency. No dysuria. No hematuria. No obstructive symptoms. No discharge. No pain. No significant abnormal bleeding. Appetite has improved. MUSCULOSKELETAL: No musculoskeletal pain; no joint swelling. Mild discomfort in the back as usual but he is up and about ambulatory now. He is able to do most of the activity as daily living. NEUROLOGICAL: No headache. No neck pain. No syncope. No seizures. No dizziness. PSYCHIATRIC: Not anxious. No depression. No suicidal thoughts. No homicidal thoughts. 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 Agnea present with forgetfulness of recent events. He doesn't remember what happened yesterday what he was told about a few things about his back yesterday. SKIN: No rash. No lesions. No wounds. ENDOCRINE: No unexplained weight loss. No weight gain. HEMATOLOGIC/LYMPHATIC: No anemia. No purpura. No petechiae. No prolonged or excessive bleeding. No palpable lymph nodes. PHYSICAL EXAMINATION: GENERAL: The patient is oriented to time, place and person. VITAL SIGNS: Temperature 97.2, pulse 90, respiratory 18, blood pressure 137/75 and pulse ox 100%. HEENT: Head normocephalic, atraumatic. Eyes: Extraocular muscles are intact. Pupils are equal, round and reactive to light and accommodation. Ears: No lesions. Nose appeared normal. Throat: No exudate or erythema. NECK: Supple. No JVD, no carotid bruit. No lymphadenopathy or thyromegaly. LUNGS: Decreased breath sounds but Clear to auscultation. Percussion note normal. Chest symmetrical. HEART: S1, S2, no S3. No murmurs. No cyanosis or clubbing. No ascites. Pulses: Dorsalis pedis and posterior tibial pulses +1 to +2 both sides. ABDOMEN: Soft. Nontender. Bowel sounds active. No CVA tenderness. No mass felt. EXTREMITIES: No edema. Full range of motion of all extremities, equal. NEUROLOGIC: No focal deficit. Cranial nerves II through XII are grossly intact. No headache, no double vision or headache. SKIN: Not dry. Intact. Turgor - normal. LYMPHATIC: No palpable lymph nodes/no lymphedema. MUSCULOSKELETAL: Normal joints with no swelling. Muscle tone is normal. LABS: Hgb 10.6, hct 31, WBC 7,800 normal differential, creatinine 0.9, BUN 11 and potassium 3.8. ASSESSMENT: 1. Compression fracture L1 seems to be stable with no neurological deficit. The patient has multiple compression fractures and they are stable. 2. Dementia 3. Peripheral arterial disease 4. Chronic lung disease PLAN: 1. Continue NEBS treatment 2. Xanax 3. Continue Lipitor 4. Plavix 5. Continue Coumadin R with coverage 6. Toradol to be continued along with Morphine TIME SPENT: More than 30 minutes. Plan and coordination of the patient's care discussed in the presence of nurse. PINKY
--- NOTE | 2016-12-25 11:12 | PCM.PROG ---
Attending Provider: ATTENDING PROVIDER: Dr. SANG GRANT DATE OF SERVICE: 12/25/16 SUBJECTIVE: This 81 year old WHITE/ M was hospitalized 12/21/16. The patient is hospitalized hospitalized with a fall. The patient has mild superior endplate compression fracture of L1. The patient has been up and walking no extra pain than he usually has, 1 to 3 on scale of 10. The patient is able to walk with walker. REVIEW OF SYSTEMS: CONSTITUTIONAL: No night sweats. No fatigue, malaise, lethargy. No fever or chills. HEENT: Eyes: No visual changes. No eye pain. No eye discharge. ENT: No runny nose. No epistaxis. No sinus pain. No odynophagia. No congestion. RESPIRATORY: No cough, no congestion. No hemoptysis. CARDIOVASCULAR: No angina symptoms. No CHF symptoms. No atypical chest pain for CAD. No palpitations. No shortness of breath. GASTROINTESTINAL: No abdominal pain. No nausea or vomiting. No diarrhea or constipation. No hematemesis. No hematochezia. GENITOURINARY: No urgency. No frequency. No dysuria. No hematuria. No obstructive symptoms. No discharge. No pain. No significant abnormal bleeding. MUSCULOSKELETAL: Back pain. NEUROLOGICAL: Dementia - awake, alert, oriented times three, somewhat confused. No headache. No neck pain. No syncope. No seizures. No dizziness. PSYCHIATRIC: Not anxious. No depression. No suicidal thoughts. No homicidal thoughts. SKIN: No rash. No lesions. No wounds. ENDOCRINE: No unexplained weight loss. No weight gain. HEMATOLOGIC/LYMPHATIC: No anemia. No purpura. No petechiae. No prolonged or excessive bleeding. No palpable lymph nodes. PHYSICAL EXAMINATION: GENERAL: The patient is awake, alert and oriented, lying/sitting in bed in no distress. VITAL SIGNS: Temperature 98.1 F, Pulse 93, Respiratory Rate 18, BP 94/54, Pulse Ox 98% HEENT: Head normocephalic, atraumatic. Eyes: Extraocular muscles are intact. Pupils are equal, round and reactive to light and accommodation. Ears: No lesions. Nose appeared normal. Throat: No exudate or erythema. NECK: Supple. No JVD, no carotid bruit. No lymphadenopathy or thyromegaly. LUNGS: Clear to auscultation. Percussion note normal. Chest symmetrical. HEART: S1, S2, no S3. No murmurs. No cyanosis or clubbing. No ascites. Pulses: Dorsalis pedis and posterior tibial pulses +1 to +2 both sides. ABDOMEN: Soft. Non-tender. Bowel sounds active. No CVA tenderness. No mass felt. EXTREMITIES: No edema. Full range of motion of all extremities, equal. NEUROLOGIC: No focal deficit. Cranial nerves II through XII are grossly intact. No headache, no double vision or headache. SKIN: Not dry. Intact. Turgor-normal. LYMPHATIC: No palpable lymph nodes/no lymphedema. MUSCULOSKELETAL: Normal joints with no swelling. Muscle tone is normal. LAB REVIEW: 12/25/16 05:46 12/25/16 05:46 12/25/16 05:46: WBC 8.84, RBC 3.04 L, Hgb 9.7 L, Hct 29.6 L, MCV 97.4 H, MCH 31.9 H, MCHC 32.8, RDW Coeff of Tabatha 15.9 H, Plt Count 196, Neutrophils % (Manual ) 69.0, Band Neutrophils % 2.0, Lymphocytes % (Manual) 19.0, Monocytes % (Manual ) 8.0, Eosinophils % (Manual) 2.0, Sodium 137, Potassium 4.2, Chloride 105, Carbon Dioxide 24, Anion Gap 12.2, BUN 26 H, Creatinine 1.37 H, Estimated GFR ( MDRD) 50.00, BUN/Creatinine Ratio 18.97, Glucose 116 H, Calcium 8.3, Total Bilirubin 1.18, AST 16, ALT 11 L, Alkaline Phosphatase 82, Total Protein 5.0 L, Albumin 2.0 L, Globulin 3.0, Albumin/Globulin Ratio 0.67 12/24/16 07:05: WBC 6.97, RBC 2.98 L, Hgb 9.4 L, Hct 28.8 L, MCV 96.6 H, MCH 31.5 H, MCHC 32.6, RDW Coeff of Tabatha 15.6 H, Plt Count 196, Immature Gran % (Auto ) 0.3, Neut % (Auto) 69.3, Lymph % (Auto) 20.7, Bent % (Auto) 7.2, Eos % (Auto) 1.9, Baso % (Auto) 0.6, Immature Gran # (Auto) 0.0, Neut # 4.8, Lymph # 1.4, Bent # 0.5, Eos # 0.1, Baso # 0.0, Sodium 139, Potassium 4.1, Chloride 109 H, Carbon Dioxide 21 L, Anion Gap 13.1, BUN 18, Creatinine 1.10, Estimated GFR ( MDRD) 64.00, BUN/Creatinine Ratio 16.36, Glucose 109, Calcium 8.1 L, Total Bilirubin 0.80, AST 18, ALT 12, Alkaline Phosphatase 82, Total Protein 5.1 L, Albumin 2.0 L, Globulin 3.1, Albumin/Globulin Ratio 0.65 ASSESSMENT: 1. Back pain under control. The patient is ambulatory with walker. 2. No neurological deficit. 3. Overall condition is stable. 4. Stable cardiovascular status. PLAN: 1. Decrease Zestril to 10 mg a day 2. Encourage the patient to drink fluids. Plan and coordination of the patient's care discussed in the presence of Dry House Tender and nurse. CONDITION: Stable SCRIBED BY: CARLENE BERNSTEIN Maternal Child Nurse scribed while in presence of service performed by Dr. SANG GRANT on 12/25/16 ([id number])
[2016-12-25] MEDS: HUMULIN R SUBCUT PRN ×2 (11:27→20:51)
[2016-12-25] MEDS ORDERED: MORPHINE 4 MG/ML SYRINGE IVP PRN (20:46)
[2016-12-25] MEDS: LIPITOR PO SCH (20:50)
[2016-12-26 05:16] LABS: HEMATOCRIT 33.1 % (42.0-52.0); HEMOGLOBIN 10.7 g/dl (14.0-18.0); MEAN CORPUSCULAR HEMOGLOBIN 31.5 pg (27.0-31.0); MEAN CORPUSCULAR HGB CONC 32.3 (31.8-35.4); MEAN CORPUSCULAR VOLUME 97.4 fl (80.0-94.0); PLATELET COUNT 231 10^3/uL (140-440); WHITE BLOOD COUNT 6.61 K/ul (4.2-10.2)
[2016-12-26] MEDS: DUONEB NEB SCH (05:17)
[2016-12-26 05:24] LABS: ANISOCYTOSIS NOT PRESENT (NOT PRESENT)
[2016-12-26 05:32] LABS: ALBUMIN 2.2 g/dL (3.4-5.0); ALBUMIN/GLOBULIN RATIO 0.58; BILIRUBIN,TOTAL 0.8 mg/dL (0.00-1.20); BUN/CREATININE RATIO 22.37; CALCIUM 8.7 mg/dL (8.2-10.2); CREATININE 1.43 mg/dL (0.60-1.10)
[2016-12-26] MEDS: LASIX TAB PO SCH (05:42)
[2016-12-26] MEDS: XANAX PO SCH (08:20)
[2016-12-26] MEDS: PLAVIX PO SCH (08:20)
[2016-12-26] MEDS: ASPIRIN EC PO SCH (08:20)
[2016-12-26] MEDS: ZESTRIL PO SCH (08:20)
[2016-12-26] MEDS: TORADOL IVP SCH (09:25)
--- NOTE | 2016-12-26 09:46 | PCM.PROG ---
Attending Provider: ATTENDING PROVIDER: Dr. SANG GRANT DATE OF SERVICE: 12/26/16 SUBJECTIVE: This 81 year old WHITE/ M was hospitalized 12/21/16. The patient is doing well. Pain is 1 to 3 on a scale of 1 to 10. He has been up and about with the walker. Blood pressure is controlled. Appetite is good. The patient is alert, has had large bowel movement. He states he feels better wants to go home. REVIEW OF SYSTEMS: CONSTITUTIONAL: No night sweats. No fatigue, malaise, lethargy. No fever or chills. HEENT: Eyes: No visual changes. No eye pain. No eye discharge. ENT: No runny nose. No epistaxis. No sinus pain. No odynophagia. No congestion. RESPIRATORY: No cough, no congestion. No hemoptysis. CARDIOVASCULAR: No angina symptoms. No CHF symptoms. No atypical chest pain for CAD. No palpitations. No shortness of breath. GASTROINTESTINAL: No abdominal pain. No nausea or vomiting. No diarrhea or constipation. No hematemesis. No hematochezia. GENITOURINARY: No urgency. No frequency. No dysuria. No hematuria. No obstructive symptoms. No discharge. No pain. No significant abnormal bleeding. MUSCULOSKELETAL: No musculoskeletal pain; no joint swelling. NEUROLOGICAL: Awake, alert, oriented to time, place and person. No headache. No neck pain. No syncope. No seizures. No dizziness. PSYCHIATRIC: Not anxious. No depression. No suicidal thoughts. No homicidal thoughts. SKIN: No rash. No lesions. No wounds. ENDOCRINE: No unexplained weight loss. No weight gain. HEMATOLOGIC/LYMPHATIC: No anemia. No purpura. No petechiae. No prolonged or excessive bleeding. No palpable lymph nodes. PHYSICAL EXAMINATION: GENERAL: The patient is awake, alert and oriented, lying/sitting in bed in no distress. VITAL SIGNS: Temperature 98.0 F, Pulse 117, Respiratory Rate 20, BP 105/64, Pulse Ox 94% HEENT: Head normocephalic, atraumatic. Eyes: Extraocular muscles are intact. Pupils are equal, round and reactive to light and accommodation. Ears: No lesions. Nose appeared normal. Throat: No exudate or erythema. NECK: Supple. No JVD, no carotid bruit. No lymphadenopathy or thyromegaly. LUNGS: Clear to auscultation. Percussion note normal. Chest symmetrical. HEART: S1, S2, no S3. No murmurs. No cyanosis or clubbing. No ascites. Pulses: Dorsalis pedis and posterior tibial pulses +1 to +2 both sides. ABDOMEN: Soft. Non-tender. Bowel sounds active. No CVA tenderness. No mass felt. EXTREMITIES: No edema. Full range of motion of all extremities, equal. NEUROLOGIC: No focal deficit. Cranial nerves II through XII are grossly intact. No headache, no double vision or headache. SKIN: Not dry. Intact. Turgor-normal. LYMPHATIC: No palpable lymph nodes/no lymphedema. MUSCULOSKELETAL: Normal joints with no swelling. Muscle tone is normal. LAB REVIEW: 12/26/16 05:12 12/26/16 05:12 12/26/16 05:12: WBC 6.61, RBC 3.40 L, Hgb 10.7 L, Hct 33.1 L, MCV 97.4 H, MCH 31.5 H, MCHC 32.3, RDW Coeff of Tabatha 15.7 H, Plt Count 231, Neutrophils % (Manual ) 82.0 H, Lymphocytes % (Manual) 16.0, Monocytes % (Manual) 2.0, Sodium 141, Potassium 5.0, Chloride 105, Carbon Dioxide 25, Anion Gap 16.0, BUN 32 H, Creatinine 1.43 H, Estimated GFR (MDRD) 47.00, BUN/Creatinine Ratio 22.37, Glucose 115, Calcium 8.7, Total Bilirubin 0.80, AST 20, ALT 14, Alkaline Phosphatase 107 D, Total Protein 6.0, Albumin 2.2 L, Globulin 3.8, Albumin/ Globulin Ratio 0.58 ASSESSMENT: 1. BACK PAIN UNDER CONTROL 2. NO NEUROLOGICAL DEFICITS. 3. OVERALL CONDITIONS ARE STABLE. 4. STABLE CARDIOVASCULAR STATUS. PLAN: 1. D/C Clonidine 2. Dyazide one a day 3. Zestril 10 mg one a day 4. Continue rest of medications 5. D/C Xanax 6. Gabapentin 300 mg b.i.d. 7. Restart Lexapro 8. Aricept and Namenda restart Plan and coordination of the patient's care discussed in the presence of Certified Genetic Counselor and nurse. CONDITION: Stable SCRIBED BY: CARLENE BERNSTEIN Assistant Professor Of Spanish scribed while in presence of service performed by Dr. SANG GRANT on 12/26/16 (2026)
--- NOTE | 2016-12-26 10:20 | CM.DICTOOL ---
ADMISSION: 12/21/16 12:39 DISCHARGE: 12/26/16 DATE OF SERVICE: 12/26/16 FINAL DIAGNOSIS BACK PAIN/SCIATICA COMPRESSION FRACTURE L1 (NEW) HYPERTENSION DIABETES MELLITUS CHF CAD COPD PVD DEMENTIA RIGHT SACRAL FRACTURE, HEALING BILATERAL RIB FRACTURES, HEALING PUBIC RING FRACTURE, HEALING CABG, 1993 ILIAC ARTERY STENTS LAST VITALS Temp Pulse Resp BP Pulse Ox 98 F 87 20 84/59 L 90 L 12/25/16 10:00 12/25/16 10:00 12/25/16 10:00 12/25/16 10:00 12/25/16 10:00 ACTIVE MEDICATIONS Albuterol Nebs 1 vial NEB RTBID COUNTS INCLUDE 234 BEDS AT THE [facility] Last Admin: 12/25/16 05:11 Dose: 1 vial Aspirin (Aspirin Ec) 81 mg PO DAILYWM COUNTS INCLUDE 234 BEDS AT THE [facility] Last Admin: 12/25/16 08:09 Dose: 81 mg Aricept 10 mg PO BEDTIME Atorvastatin Calcium (Lipitor) 10 mg PO BEDTIME COUNTS INCLUDE 234 BEDS AT THE [facility] Last Admin: 12/24/16 21:05 Dose: 10 mg Clopidogrel Bisulfate (Plavix) 75 mg PO DAILY COUNTS INCLUDE 234 BEDS AT THE [facility] Last Admin: 12/25/16 08:09 Dose: 75 mg Escitalopram 20 mg PO DAILY Ferrous Sulfate 325 mg PO BID Furosemide (Lasix Tab) 20 mg PO QDAC COUNTS INCLUDE 234 BEDS AT THE [facility] (DISCONTINUED AT DISCHARGE) Last Admin: 12/25/16 05:31 Dose: 20 mg Gabapentin 300 mg PO BID (REDUCED FROM TID AT DISCHARGE) Januvia 50 mg PO DAILY Lisinopril (Zestril) 10 mg PO DAILY COUNTS INCLUDE 234 BEDS AT THE [facility] (NEW DOSE) Last Admin: 12/25/16 08:08 Dose: 10 mg Loratadine 10 mg PO DAILY Memantine 10 mg PO BID Nitroglycerin (Nitrostat) 0.4 mg SL Q5MIN X 3 DOSES PRN PRN Reason: Angina Dugger 5-325 mg PO BID PRN Pain ALLERGIES megestrol [From Megace] Adverse Reaction (Mild, Verified 12/21/16 11:13) Diarrhea Penicillins Adverse Reaction (Unknown, Verified 12/21/16 11:13) Unknown procaine [From Novocain] Adverse Reaction (Unknown, Verified 12/21/16 11:13) Unknown NEW PRESCRIPTIONS: DO NOT TAKE YOUR LASIX (FUROSEMIDE) DO NOT TAKE YOUR CLONIDINE DO NOT TAKE YOUR XANAX (ALPRAZOLAM) DECREASE YOUR GABAPENTIN 300 MG TO TWICE DAILY NEW PRESCRIPTIONS: ZESTRIL 10 MG, TAKE ONE TABLET BY MOUTH DAILY DYAZIDE, TAKE ONE TABLET BY MOUTH DAILY GLUCOMETER AND TESTING SUPPLIES FOR DAILY TESTING SMOKING: FORMER SMOKER ORAL TOBACCO USE NOW THE PATIENT HAS RECEIVED INSTRUCTION REGARDING COMPLETE TOBACCO CESSATION. HE HAS BEEN ADVISED OF THE RISKS WITH CONTINUED USE WELL THE BENEFITS FROM COMPLETE CESSATION. HE HAS NO VERBALIZED HIS INTENT TO STOP. DISEASE SPECIFIC EDUCATION: COMPRESSION DEFORMITY AT L1 CONSTIPATION HOME MEDICATIONS NEW PRESCRIPTIONS FOLLOW UP LAB REVIEW: 12/25/16 05:46 12/25/16 05:46 12/25/16 05:46: WBC 8.84, RBC 3.04 L, Hgb 9.7 L, Hct 29.6 L, MCV 97.4 H, MCH 31.9 H, MCHC 32.8, RDW Coeff of Tbaatha 15.9 H, Plt Count 196, Neutrophils % (Manual ) 69.0, Band Neutrophils % 2.0, Lymphocytes % (Manual) 19.0, Monocytes % (Manual ) 8.0, Eosinophils % (Manual) 2.0, Sodium 137, Potassium 4.2, Chloride 105, Carbon Dioxide 24, Anion Gap 12.2, BUN 26 H, Creatinine 1.37 H, Estimated GFR ( MDRD) 50.00, BUN/Creatinine Ratio 18.97, Glucose 116 H, Calcium 8.3, Total Bilirubin 1.18, AST 16, ALT 11 L, Alkaline Phosphatase 82, Total Protein 5.0 L, Albumin 2.0 L, Globulin 3.0, Albumin/Globulin Ratio 0.67 PLAN: DISCHARGE HOME TODAY RETURN TO SEE DR. GRANT IN 5-7 DAYS. PLEASE PHONE HIS OFFICE TO SCHEDULE YOUR FOLLOW-UP APPOINTMENT ([phone]) RESUME YOUR HOME MEDICATIONS PER LIST PROVIDED BY THE NURSING STAFF DO NOT TAKE YOUR LASIX (FUROSEMIDE) DO NOT TAKE YOUR CLONIDINE DO NOT TAKE YOUR XANAX (ALPRAZOLAM) DECREASE YOUR GABAPENTIN 300 MG TO TWICE DAILY NEW PRESCRIPTIONS: ZESTRIL 10 MG, TAKE ONE TABLET BY MOUTH DAILY DYAZIDE, TAKE ONE TABLET BY MOUTH DAILY GLUCOMETER AND TESTING SUPPLIES FOR DAILY TESTING ACTIVITY: GET PLENTY OF REST AT HOME. GRADUALLY INCREASE YOUR ACTIVITY LEVEL ACCORDING TO YOUR TOLERATION CHECK YOUR BLOOD SUGARS EVERY MORNING FASTING BEFORE BREAKFAST. KEEP A LOG. BRING THE LOG TO YOUR NEXT APPOINTMENT WITH DR. GRANT DIET: CONSISTENT CARBS SUMMARY: THE PATIENT IS ALERT AND ORIENTED X3. HE IS FORGETFUL AT TIMES. CURRENTLY HE RESIDES AT HOME WITH HIS SPOUSE. HIS DAUGHTER IS SUPPORTIVE OF HIS NEEDS. HE DESIRES TO RETURN HOME AT DISCHARGE. HIS SKIN TURGOR IS FAIR. HE HAS MULTIPLE BRUISES TO HIS ARMS IN VARIOUS STAGES OF HEALING. THE SKIN IS FRAGILE. HE HAS NO DECUBITUS ULCERS AT DISCHARGE. HE IS ABLE TO BE AMBULATORY WITH USE OF A ROLLING WALKER AND ASSISTANCE. INITIALLY , HIS GAIT IS UNSTEADY, BUT IMPROVES WITHIN SHORT DISTANCES OF WALKING. HE IS ABLE TO FEED HIMSELF, BUT REQUIRES ASSISTANCE WITH HYGIENIC TASKS. HE IS AWARE AND AGREEABLE FOR DISCHARGE PLANS TODAY. DR. RUDY M.D.
[2016-12-26 10:30] VITALS: BP 82/52; TEMP 97
--- NOTE | 2016-12-27 13:10 | DS ---
DATE OF SERVICE: 12/26/16 FINAL DIAGNOSIS: 1. Back pain/sciatica 2. Compression Fracture L1(new) 3. Hypertension 4. Diabetes mellitus 5. Congestive heart failure 6. Coronary artery disease 7. COPD 8. PVD 9. Dementia 10.Right sacral fracture, healing 11.Bilateral rib fractures, healing 12.Pubic ring fracture, healing 13.CABG, 1992 14.Iliac artery stents LAST VITALS: Temperature 98, pulse 87, respiratory rate 20, blood pressure 84/59 and pulse ox 90%. DISCHARGE INSTRUCTIONS: Discharge home today. Return to see Dr. Bright in 5-7 days. Resume home medication as pers list provided. MEDICATIONS AT DISCHARGE: Albuterol NEBS one vial Neb Twice a day Aspirin EC 81mg PO daily Lipitor 10mg PO bedtime Aricept 10mg PO bedtime Plavix 75mg PO daily Escitalopram 20mg PO daily Ferrous sulfate 325mg PO twice a day Lasix tab 20mg PO QDAC (DISCONTINUED AT DISCHARGE) Gabapentin 300mg PO twice a day (REDUCED FROM THREE TIMES A DAY AT DISCHARGE) Januvia 50mg PO daily Zestril 10mg PO daily (NEW DOSE) Loratadine 10mg PO daily Memantine 10mg PO twice a day Nitrostat 0.4mg SL Q 5 minutes x3 doses PRN [place] 5-325mg PO twice a day PRN ALLERGIES: Megestrol Penicillins Procaine NEW PRESCRIPTIONS: DO NOT TAKE LASIX DO NOT TAKE CLONIDINE DO NOT TAKE XANAX Decrease Gabapentin to 300mg to twice daily NEW PRESCRIPTIONS: Zestril 10mg take one tablet by mouth daily Dyazide, take one tablet by mouth daily Glucometer and testing supples for daily testing. DIET INSTRUCTIONS: Consistent Carbohydrates ACTIVITY: Crow plenty of rest at home. Gradually increase activity level according to toleration. Check blood sugars every morning fasting before breakfast. Keep a log. Bring log to next appointment with . SMOKING: Former smoker Oral tobacco use now. The patient has received instruction regarding complete tobacco cessation. He has been advised of the risks with continued use as well as the benefits from complete cessation. He has no verbalized his intent to stop. DISEASE SPECIFIC EDUCATION: Compression deformity at L1 Constipation Home medications New prescriptions Followup. LABS: Hgb 10.7, hct 33, WBC 6,600 normal differential, creatinine 1.4, BUN 32 and potassium 5. HOSPITAL COURSE: The patient is an 81 year old male hospitalized with having a fall. The patient had severe back pain at the time but at the time of discharge the patient is up and about and ready to go home. According to him he has practically no pain just like what he had before. He has L1 compression fracture of the superior plate which was stable. The patient is up and about walking with the walker. The patient's cardiovascular status was stable and the patient was initially treated with narcotic and analgesics IV with non-steroidal anti-inflammatory Toradol with some steroids. The patient is highly motivated and several changes were made in his medications. The patient was noted to have blood pressure at lower limit of normals, certain changes were made to the medication. Dyazide new medication was started, Lasix was discontinued, Clonadine was discontinued and Xanax was discontinued. Gabapentin was reduced to 300mg PO twice a day. Zestril 10mg PO daily was continued. The patient was restarted on Lexapro, Aricept and Namenda. The patient's condition at the time of discharge is stable. The patient was forgetful about the recent event like what happened yesterday but he was able to carry on meaningful conversation in the present times. The patient is being taken care of by the who is practically disabled but the daughter lives with them and she is very energetic and knowledgeable. CONDITION: Stable. TIME SPENT: More than 60 minutes. PINKY
--- NOTE | 2016-12-27 13:12 | PN ---
12/21/16: Level 5 12/22/16: Intermediate 12/23/16: Intermediate 12/24/16: Intermediate 12/25/16: Intermediate 12/26/16: D as in discharge MTDD
== END 2016-12-26 11:00 | disposition home or self-care (01) | DRG 552 ==
LOC: ED 10:56 → MEDSURG B 12:39
PROVIDERS: ADMIT Internal Medicine; ATTEND Internal Medicine
DX: S32.019A Unspecified fracture of first lumbar vertebra, initial encounter for closed fracture (principal); M54.30 Sciatica, unspecified side; I10 Essential (primary) hypertension; S39.92XA Unspecified injury of lower back, initial encounter; M54.5 Low back pain; E11.9 Type 2 diabetes mellitus without complications; E78.5 Hyperlipidemia, unspecified; I50.9 Heart failure, unspecified; I25.10 Atherosclerotic heart disease of native coronary artery without angina pectoris; J44.9 Chronic obstructive pulmonary disease, unspecified; I73.9 Peripheral vascular disease, unspecified; D64.9 Anemia, unspecified; G30.9 Alzheimer's disease, unspecified; F02.80 Dementia in other diseases classified elsewhere, unspecified severity, without behavioral disturbance, psychotic disturbance, mood disturbance, and anxiety; S32.10XD Unspecified fracture of sacrum, subsequent encounter for fracture with routine healing; S22.43XD Multiple fractures of ribs, bilateral, subsequent encounter for fracture with routine healing; S32.810D Multiple fractures of pelvis with stable disruption of pelvic ring, subsequent encounter for fracture with routine healing; W19.XXXA Unspecified fall, initial encounter; Z79.01 Long term (current) use of anticoagulants; Z79.84 Long term (current) use of oral hypoglycemic drugs; Z79.899 Other long term (current) drug therapy
CPT/HCPCS: 36415; 80053; 81001; 82550; 82962; 84484; 85007; 85025; 87040; 93005; 93010; 94640; 96374; 99284

== ENCOUNTER 2017-01-05 21:36 | Inpatient (IN) | payer OTHER ==
[2017-01-05] MEDS ORDERED: SODIUM CHLORIDE 1,000 ML IV STA ×2 (21:39→21:58)
[2017-01-05] MEDS ORDERED: VANCOMYCIN 1 GM in SODIUM CHLORIDE 250 ML IV STA (21:40)
[2017-01-05 22:01] LABS: BASOPHILS # (AUTO) 0.1 K/uL (0-0.2); BASOPHILS % (AUTO) 0.3 % (0.0-3.0); EOSINOPHILS # (AUTO) 0.1 K/ul (0.0-0.7); EOSINOPHILS % (AUTO) 0.4 % (0.0-7.0); HEMATOCRIT 32.6 % (42.0-52.0); HEMOGLOBIN 10.8 g/dl (14.0-18.0); IMMATURE GRANULOCYTE % (AUTO) 0.9 % (0.0-5.0); LYMPHOCYTES # (AUTO) 1.7 K/uL (0.60-3.4); LYMPHOCYTES % (AUTO) 8.3 (10.0-50.0); MEAN CORPUSCULAR HEMOGLOBIN 32.1 pg (27.0-31.0); MEAN CORPUSCULAR HGB CONC 33.1 (31.8-35.4); MONOCYTES # (AUTO) 0.7 K/uL (0.4-2.0); MONOCYTES % (AUTO) 3.3 (0-10); NEUTROPHILS # (AUTO) 17.4 K/ul (2.0-6.9); NEUTROPHILS % (AUTO) 86.8; PLATELET COUNT 375 10^3/uL (140-440); RED BLOOD COUNT 3.36 10^6/ul (4.70-6.10); WHITE BLOOD COUNT 20.01 K/ul (4.2-10.2)
[2017-01-05 22:02] LABS: ABG PCO2 31.9 mmHg (35-45); ABG PH 7.382 (7.35-7.45)
[2017-01-05 22:03] VITALS: BMI 20.3
[2017-01-05 22:04] LABS: ABG BASE EXCESS -6 (-2.0-2.0); ABG HCO3 19 (22.0-26.0); ABG TCO2 20 (22.0-28.0)
[2017-01-05 22:28] LABS: ALBUMIN 2.5 g/dL (3.4-5.0); ALBUMIN/GLOBULIN RATIO 0.66; ANION GAP 17.3; BILIRUBIN,TOTAL 0.59 mg/dL (0.00-1.20); BUN/CREATININE RATIO 13.67; CALCIUM 8.7 mg/dL (8.2-10.2); CREATININE 3.51 mg/dL (0.60-1.10); POTASSIUM 5.3 mmol/L (3.5-5.1); TOTAL PROTEIN 6.3 g/dL (5.8-8.1)
--- NOTE | 2017-01-05 22:38 | ED.PDOC ---
General ED Provider: Dr. BRYANT LUNA-ER Chief Complaint: Respiratory Complaint Stated Complaint: sent from long-term with rigors, low bp and hypoxia Time Seen by Physician: 21:45 Mode of Arrival: Ambulance Information Source: Patient, Family, Jail, EMT Exam Limitations: No limitations Primary Care Provider: SANG GRANT Nursing and Triage Documentation Reviewed and Agree: Yes Respiratory Complaint Exam - Respiratory Complaint/Exam Onset/Duration: 2 days Symptoms Are: Still present Timing: Constant Initial Severity: Mild Current Severity: Moderate Location: Chest Character: Reports: Non-productive cough Alleviating: Reports: None Associated Signs and Symptoms: Reports: Rapid breathing, Dyspnea, Fever, Chills , URI, Nasal congestion. Denies: Chest pain, Pleuritic chest pain, Wheezing, Hemoptysis, Dizziness, Calf pain, Calf swelling, Edema, Hoarseness, Sinus discomfort, Vomiting, Sore throat, Weight loss, Decreased oral intake, Increased thirst, Increased appetite, Increased urination Related History: Reports: Similar episode History of Healthcare-Acquired Pneumonia: Lives at long-term, Admit w/in last 30 days Pseudomonas Risk Factors: Reports: Chronic Lung Disease Tuberculosis Risk Factors: Reports: None Status Asthmaticus Risk Factors: Reports: None Home Oxygen Use: Yes Recent Stress Test: No Recent Echo/LV Function: No Current Antibiotic Use: No Current Asthma Medication Use: No Respiratory Distress: Moderate Inadequate Respiratory Effort: No Dysphagia Present: No Stridor Present: No JVD Present: No Accessory Muscle Use: No Retractions: Not Present Diminished Breath Sounds: Yes Sinus Tenderness: None Grunting Respirations: No Kussmaul Respirations: No Differential Diagnoses: Pneumonia, Other Quality Indicators For Pneumonia: Blood Cultures-SCU admit, Antibiotics in 6hr- admit, SpO2 assessed, Empiric Antibiotic Rx, Vital signs, Mental status assessed Non-Traumatic Chest Pain Syncope: EKG Performed Review of Systems - Review Of Systems Constitutional: Reports: Chills, Fever, Weakness, Loss of appetite Eyes: Reports: No symptoms Ears, Nose, Mouth, Throat: Reports: No symptoms Respiratory: Reports: Cough, Short of air Cardiac: Reports: No symptoms GI: Reports: No symptoms : Reports: No symptoms Musculoskeletal: Reports: No symptoms Skin: Reports: No symptoms Neurological: Reports: Cognitive dysfunction Endocrine: Reports: No symptoms Hematologic/Lymphatic: Reports: No symptoms All Other Systems: Reviewed and Negative Past Medical History - Past Medical History Endocrine: Reports: DM 2 ([Januvia]50mgPODAILY;[Humulin R]1-100 PRN ), Dyslipidemia ( [Fenofibrate] 145 mg PO DAILY 08/21/16 ; [Lipitor] 10 mg PO BEDTIME 08/21/16) Cardiovascular: Reports: CAD (aspirin plavix), Hypertension (HYPOTENSION; PERIPHERAL VASCULAR DISEASE;;[Zestril] 5 mg PO DAILY), CHF ([Lasix Tab] 20 mg PO MWFSA), Other ([Nitrostat] 0.4 mg SL Q5MIN) Respiratory: Reports: COPD ([Duoneb] 1 vial NEB RTBID), Other ([Claritin] 10 mg PO DAILY) Hematological: Reports: Unknown Gastrointestinal: Reports: Other ( [Protonix] 40 mg PO BIDAC) Genitourinary: Reports: Unknown Neuro/Psych: Reports: Anxiety ([Xanax] 0.25 mg PO BID), Depression ([Lexapro] 10 mg PO DAILY), Dementia ( [Aricept] 10 mg PO DAILY 08/21/16 ;;[Namenda] 10 mg PO BEDTIME), Other (ATAXIA ) Musculoskeletal: Reports: Other (Gabapentin 300 mg PO TID 08/21/16;;Hydrocodon- Acetaminophen 5-325) Cancer: Reports: Unknown Other Pertinent Past Medical History: ATAXIA HYPOTENSION PERIPHERAL VASCULAR DISEASE - Surgical History General Surgical History: Reports: CABG (AORTOCORONARY BYPASS GRAFT) - Family History Family History: Reports: Unknown - Social History Smoking Status: Former smoker Hx Substance Use: No Alcohol Screening: Occasionally - Immunizations Tetanus Shot up to Date: No (unknown) Physical Exam - Physical Exam Appearance: Well-appearing, No pain distress, Well-nourished Eyes: ELIAS, EOMI, Conjunctiva clear ENT: Ears normal, Nose normal, Oropharynx normal Neck: Supple Respiratory: Airway patent, Breath sounds equal, Crackles, Wheezes Cardiovascular: Tachycardia GI/: Soft Musculoskeletal: Normal strength Skin: Warm, Dry, Normal color Neurological: Sensation intact, Motor intact, Reflexes intact, Cranial nerves intact, Alert, Oriented Psychiatric: Affect appropriate, Mood appropriate, Anxious Interpretation - Radiology Interpretation Radiology Interpretation By: Radiologist Radiology Results: Positive Exam Interpreted: CT Scan - EKG Interpretation Time of EKG #1: 00:00 Rate: Normal Rhythm: Sinus Ectopy: None [place]: NL ST Segment: Normal Physician Notification - Case Discussed Physician Notified: dr [email or web address] Time of Notification: 00:00 Critical Care Note - Critical Care Note Total Time (mins): 30 Course - Course Hematology/Chemistry: 01/05/17 21:55 01/05/17 21:55 Orders, Labs, Meds: Lab Review 01/05/17 01/05/17 21:38 21:55 WBC 20.01 H RBC 3.36 L Hgb 10.8 L Hct 32.6 L MCV 97.0 H MCH 32.1 H MCHC 33.1 RDW Coeff of Tabatha 15.6 H Plt Count 375 Immature Gran % (Auto) 0.9 Neut % (Auto) 86.8 Lymph % (Auto) 8.3 L [place] % (Auto) 3.3 Eos % (Auto) 0.4 Baso % (Auto) 0.3 Immature Gran # (Auto) 0.2 Neut # 17.4 H Lymph # 1.7 [place] # 0.7 Eos # 0.1 Baso # 0.1 Puncture Site Lb O2 Saturation 83.0 L ABG pH 7.382 ABG pCO2 31.9 L ABG pO2 47.0 L* ABG HCO3 19 L ABG Total CO2 20 L ABG Base Excess -6 L Chung Test + FiO2 % 21.0 Sodium 131 L Potassium 5.3 H Chloride 98 Carbon Dioxide 21 L Anion Gap 17.3 BUN 48 H Creatinine 3.51 H* Estimated GFR (MDRD) 17.00 BUN/Creatinine Ratio 13.67 Glucose 142 H Lactic Acid 19.9 H Calcium 8.7 Total Bilirubin 0.59 AST 17 ALT 16 Alkaline Phosphatase 107 Total Protein 6.3 Albumin 2.5 L Globulin 3.8 Albumin/Globulin Ratio 0.66 Procalcitonin 0.37 Orders Category Date Time Status ABG DRAW REQUEST Stat CARDIO 01/05/17 21:38 Completed EKG-(ED ONLY) Stat CARDIO 01/05/17 21:38 Completed NEBULIZER TREATMENT Stat CARDIO 01/05/17 22:41 Completed IV [ED IV/MEDIPORT/POWERPORT] .ONCE EMERGENCY 01/05/17 21:39 Active ABG Stat LAB 01/05/17 21:38 Completed BLOOD CULTURE Stat LAB 01/05/17 21:38 Ordered CBC W/ AUTO DIFF Stat LAB 01/05/17 21:55 Completed COMPREHENSIVE METABOLIC PANEL Stat LAB 01/05/17 21:55 Completed LACTIC ACID Stat LAB 01/05/17 21:55 Completed PROCALCITONIN Stat LAB 01/05/17 21:55 Received 0.9 % Sodium Chloride [Saline Flush] MEDS 01/05/17 21:39 Ordered 1 syr IVF PRN PRN Ipratropium/Albuterol Neb [Duoneb] MEDS 01/05/17 22:41 Discontinued 1 vial NEB ONCE STA Sodium Chloride 0.9% [Sodium Chloride] 1,000 ml MEDS 01/05/17 21:58 Discontinued IV 1,000 mls/hr Sodium Chloride 0.9% [Sodium Chloride] 1,000 ml MEDS 01/05/17 21:39 Discontinued IV 30 mls/hr Vancomycin HCl [Vancomycin] 1 gm MEDS 01/05/17 21:40 Discontinued 0.9 % Sodium Chloride [Sodium Chloride] [address] CHEST W/O CONTRAST Stat RADS 01/05/17 21:40 Completed Medications Generic Name Dose Route Start Last Admin Trade Name Freq PRN Reason Stop Dose Admin Sodium Chloride 1 syr 01/05/17 21:39 Saline Flush IVF PRN PRN To flush IV Discontinued Medications Generic Name Dose Route Start Last Admin Trade Name Freq PRN Reason Stop Dose Admin Albuterol/Ipratropium 1 vial 01/05/17 22:41 01/05/17 22:47 Duoneb NEB 01/05/17 22:42 1 vial ONCE STA Administration Sodium Chloride 1,000 mls @ 30 mls/hr 01/05/17 21:39 Sodium Chloride IV 01/07/17 06:58 .[id number] STA Vancomycin HCl 1 gm/ Sodium 250 mls @ 250 mls/hr 01/05/17 21:40 Chloride IV 01/05/17 22:39 ONCE STA Sodium Chloride 1,000 mls @ 1,000 mls/hr 01/05/17 21:58 Sodium Chloride IV 01/05/17 22:38 .Q1H STA family understands he may not survive this Vital Signs: Temp Pulse Resp BP Pulse Ox 01/05/17 23:27 100/64 01/05/17 21:40 98 F 96 H 30 H 78/43 L 83 L Departure - Departure Time of Disposition: 00:00 Disposition: ADMITTED INPATIENT Discharge Problem: BINDU (acute kidney injury), Other specified septicemia Acute respiratory failure Qualifiers: Respiratory failure complication: hypoxia Qualifier Code: (J96.01) Acute respiratory failure with hypoxia Pneumonia Qualifiers: Pneumonia type: due to unspecified organism Laterality: bilateral Lung location : lower lobe of lung Qualifier Code: (J18.9) Pneumonia, unspecified organism Instructions: Pneumonitis (ED) Condition: Critical Pt referred to PMD for follow-up: Yes Allergies/Adverse Reactions: Allergies megestrol [From Megace] Adverse Reaction (Mild, Verified 01/05/17 21:59) Diarrhea Penicillins Adverse Reaction (Unknown, Verified 01/05/17 21:59) Unknown procaine [From Novocain] Adverse Reaction (Unknown, Verified 01/05/17 21:59) Unknown Home Medications: Ambulatory Orders Aspirin [Aspirin EC] 81 mg PO DAILYWM 08/21/16 Clopidogrel Bisulfate [Plavix] 75 mg PO DAILY 08/21/16 Hydrocodone/Acetaminophen [Hydrocodon-Acetaminophen 5-325] 1 tab PO TID Nitroglycerin [Nitrostat] 0.4 mg SL Q5MIN X 3 DOSES PRN 08/21/16 Albuterol Sulfate 0.083% Neb [Albuterol 0.083% Neb] 1 vial NEB RTBID 12/26/16 Atorvastatin Calcium 10 mg PO BEDTIME 12/26/16 Donepezil HCl [Aricept] 10 mg PO DAILY 12/26/16 Escitalopram Oxalate [Lexapro] 20 mg PO DAILY 12/26/16 Ferrous Sulfate [Feosol] 325 mg PO DAILY 12/26/16 Gabapentin 300 mg PO BID 12/26/16 Lisinopril [Zestril] 10 mg PO DAILY #30 tablet 12/26/16 Loratadine [Claritin] 10 mg PO DAILY 12/26/16 Memantine HCl [Namenda] 10 mg PO BID 12/26/16 Sitagliptin Phosphate [Januvia] 50 mg PO DAILY 12/26/16 Triamterene/Hydrochlorothiazid [Dyazide] 1 cap PO DAILY #30 capsule 12/26/16 Disposition Discussed With: Patient, Family
[2017-01-05] MEDS ORDERED: DUONEB NEB STA (22:41)
--- NOTE | 2017-01-05 23:56 | CT ---
EXAM: CT of the chest without contrast. HISTORY: Shortness of breath. Cough. Fever. PROCEDURE: Contiguous axial CT images of the chest without contrast with coronal and sagittal refor mats. FINDINGS: The heart is within normal limits in size. The thoracic aorta is within normal limits in diameter. There are atherosclerotic calcifications in the thoracic aorta. There are emphysematous c hanges throughout both lungs. There is biapical scarring. There is a small right pleural effusion. There is bibasilar consolidation. There are multiple sternotomy wires. There are degenerative morgan ges in the spine. The gallbladder is enlarged measuring up to 5.5 cm in diameter. The adrenal glands and liver are normal in appearance. Impression: Bibasilar consolidation consistent with pneumonia. Small right pleural effusion. Chronic obstructive pulmonary disease. Enlarged gallbladder as described. Recommend ultrasound for further evaluation if clinically indica nadir.
[2017-01-06] MEDS ORDERED: NITROSTAT SL PRN (00:07)
[2017-01-06] MEDS ORDERED: LEVAQUIN 250 MG in PREMIX 50 ML D5W 1 BAG IV SCH (00:30)
[2017-01-06] MEDS ORDERED: LEVAQUIN 50 ML IV ONE (01:01)
[2017-01-06] MEDS: SODIUM CHLORIDE 1,000 ML IV SCH ×2 (01:40→15:27)
[2017-01-06] MEDS: DUONEB NEB SCH ×6 (01:50→21:06)
[2017-01-06 05:16] LABS: BASOPHILS # (AUTO) 0.1 K/uL (0-0.2); BASOPHILS % (AUTO) 0.4 % (0.0-3.0); EOSINOPHILS % (AUTO) 0.1 % (0.0-7.0); HEMATOCRIT 30.8 % (42.0-52.0); HEMOGLOBIN 9.8 g/dl (14.0-18.0); LYMPHOCYTES # (AUTO) 0.8 K/uL (0.60-3.4); LYMPHOCYTES % (AUTO) 5.3 (10.0-50.0); MEAN CORPUSCULAR HGB CONC 31.8 (31.8-35.4); MEAN CORPUSCULAR VOLUME 97.5 fl (80.0-94.0); MONOCYTES # (AUTO) 0.4 K/uL (0.4-2.0); NEUTROPHILS # (AUTO) 12.7 K/ul (2.0-6.9); NEUTROPHILS % (AUTO) 90.2; PLATELET COUNT 350 10^3/uL (140-440); RED BLOOD COUNT 3.16 10^6/ul (4.70-6.10); WHITE BLOOD COUNT 14.04 K/ul (4.2-10.2)
[2017-01-06 05:41] LABS: ALBUMIN 2.2 g/dL (3.4-5.0); ALBUMIN/GLOBULIN RATIO 0.63; ANION GAP 13.2; BILIRUBIN,TOTAL 0.82 mg/dL (0.00-1.20); BUN/CREATININE RATIO 16.16; CALCIUM 8.2 mg/dL (8.2-10.2); CREATININE 2.97 mg/dL (0.60-1.10); POTASSIUM 5.2 mmol/L (3.5-5.1); TOTAL PROTEIN 5.7 g/dL (5.8-8.1)
[2017-01-06] MEDS: HUMULIN R SUBCUT PRN ×3 (06:23→17:02)
[2017-01-06] MEDS ORDERED: ASPIRIN EC PO SCH (08:00)
[2017-01-06] MEDS ORDERED: NEURONTIN PO SCH (09:00)
[2017-01-06] MEDS ORDERED: NON-FORMULARY MEDICATION (Ferrous Sulfate [Feosol] 325 MG) PO SCH ×22 (09:00)
[2017-01-06] MEDS ORDERED: NON-FORMULARY MEDICATION (Escitalopram Oxalate [Lexapro] 20 MG) PO SCH ×22 (09:00)
[2017-01-06] MEDS ORDERED: LOVENOX SUBCUT SCH (09:00)
[2017-01-06] MEDS ORDERED: DYAZIDE PO SCH (09:00)
[2017-01-06] MEDS ORDERED: PLAVIX PO SCH (09:00)
[2017-01-06] MEDS ORDERED: NORCO 5-325 PO SCH (09:00)
[2017-01-06] MEDS ORDERED: FERROUS SULFATE PO SCH (09:00)
[2017-01-06] MEDS ORDERED: VANCOMYCIN 1 GM in SODIUM CHLORIDE 250 ML IV SCH (09:00)
[2017-01-06] MEDS ORDERED: LEXAPRO PO SCH (09:00)
[2017-01-06] MEDS ORDERED: NAMENDA PO SCH (09:00)
[2017-01-06] MEDS ORDERED: ARICEPT PO SCH (09:00)
[2017-01-06] MEDS ORDERED: TYLENOL RC PRN (14:35)
[2017-01-06] MEDS ORDERED: CALMOSEPTINE OINTMENT TP PRN (15:19)
[2017-01-06 16:32] LABS: BILIRUBIN,URINE 1+ (NEGATIVE); KETONES,URINE Negative (NEGATIVE); LEUKOCYTE ESTERASE ,URINE 1+ (NEGATIVE); NITRITE,URINE Negative (NEGATIVE); PROTEIN,URINE 1+ (NEGATIVE); URINE, BLOOD 3+ (NEGATIVE)
[2017-01-06 16:34] LABS: ADD URINE MICROSCOPIC YES
[2017-01-06 16:35] LABS: BACTERIA,URINE 2+ (NOT PRESENT)
[2017-01-06] MEDS: MORPHINE 2 MG/ML SYRINGE IVP PRN (18:44)
[2017-01-06] MEDS: LEVAQUIN 250 MG in PREMIX 50 ML D5W 1 BAG IV SCH (20:27)
[2017-01-06] MEDS ORDERED: LIPITOR PO SCH (21:00)
[2017-01-07] MEDS: DUONEB NEB SCH ×6 (01:09→21:46)
[2017-01-07 04:52] LABS: BASOPHILS % (AUTO) 0.3 % (0.0-3.0); EOSINOPHILS # (AUTO) 0.1 K/ul (0.0-0.7); EOSINOPHILS % (AUTO) 0.5 % (0.0-7.0); HEMATOCRIT 26.4 % (42.0-52.0); HEMOGLOBIN 8.5 g/dl (14.0-18.0); IMMATURE GRANULOCYTE % (AUTO) 1.4 % (0.0-5.0); LYMPHOCYTES # (AUTO) 1.3 K/uL (0.60-3.4); LYMPHOCYTES % (AUTO) 11.4 (10.0-50.0); MEAN CORPUSCULAR HEMOGLOBIN 31.7 pg (27.0-31.0); MEAN CORPUSCULAR HGB CONC 32.2 (31.8-35.4); MEAN CORPUSCULAR VOLUME 98.5 fl (80.0-94.0); MONOCYTES # (AUTO) 0.6 K/uL (0.4-2.0); MONOCYTES % (AUTO) 5.5 (0-10); NEUTROPHILS # (AUTO) 8.9 K/ul (2.0-6.9); NEUTROPHILS % (AUTO) 80.9; PLATELET COUNT 274 10^3/uL (140-440); RED BLOOD COUNT 2.68 10^6/ul (4.70-6.10); WHITE BLOOD COUNT 10.97 K/ul (4.2-10.2)
[2017-01-07] MEDS: SODIUM CHLORIDE 1,000 ML IV SCH ×2 (05:00→17:39)
[2017-01-07 05:14] LABS: ALBUMIN 1.9 g/dL (3.4-5.0); ALBUMIN/GLOBULIN RATIO 0.58; ANION GAP 12.9; BILIRUBIN,TOTAL 0.6 mg/dL (0.00-1.20); BUN/CREATININE RATIO 24.29; CALCIUM 8.4 mg/dL (8.2-10.2); CREATININE 2.14 mg/dL (0.60-1.10); POTASSIUM 4.9 mmol/L (3.5-5.1); TOTAL PROTEIN 5.2 g/dL (5.8-8.1)
[2017-01-07] MEDS ORDERED: VANCOMYCIN 500 MG in SODIUM CHLORIDE 100 ML IV SCH (09:00)
[2017-01-07] MEDS: MORPHINE 2 MG/ML SYRINGE IVP PRN (17:11)
[2017-01-07] MEDS ORDERED: COLACE PO PRN (20:14)
[2017-01-07] MEDS: LEVAQUIN 250 MG in PREMIX 50 ML D5W 1 BAG IV SCH (20:16)
[2017-01-07] MEDS: NAMENDA PO SCH (20:28)
[2017-01-07] MEDS: FERROUS SULFATE PO SCH (20:29)
[2017-01-07] MEDS: NEURONTIN PO SCH (20:29)
[2017-01-07] MEDS: LIPITOR PO SCH (20:31)
[2017-01-08] MEDS: DUONEB NEB SCH ×6 (02:00→22:12)
[2017-01-08 05:00] LABS: BASOPHILS % (AUTO) 0.3 % (0.0-3.0); EOSINOPHILS # (AUTO) 0.1 K/ul (0.0-0.7); HEMATOCRIT 24.4 % (42.0-52.0); HEMOGLOBIN 7.9 g/dl (14.0-18.0); LYMPHOCYTES # (AUTO) 0.9 K/uL (0.60-3.4); LYMPHOCYTES % (AUTO) 12.2 (10.0-50.0); MEAN CORPUSCULAR HGB CONC 32.4 (31.8-35.4); MEAN CORPUSCULAR VOLUME 98.8 fl (80.0-94.0); MONOCYTES # (AUTO) 0.6 K/uL (0.4-2.0); MONOCYTES % (AUTO) 8.6 (0-10); NEUTROPHILS # (AUTO) 5.4 K/ul (2.0-6.9); NEUTROPHILS % (AUTO) 75.9; PLATELET COUNT 287 10^3/uL (140-440); RED BLOOD COUNT 2.47 10^6/ul (4.70-6.10); WHITE BLOOD COUNT 7.11 K/ul (4.2-10.2)
[2017-01-08 05:17] LABS: ALBUMIN 1.8 g/dL (3.4-5.0); CALCIUM 8.4 mg/dL (8.2-10.2); POTASSIUM 4.5 mmol/L (3.5-5.1); TOTAL PROTEIN 5.1 g/dL (5.8-8.1)
[2017-01-08 05:18] LABS: ALBUMIN/GLOBULIN RATIO 0.55; ANION GAP 9.5; BILIRUBIN,TOTAL 0.6 mg/dL (0.00-1.20); BUN/CREATININE RATIO 25.92; CREATININE 1.35 mg/dL (0.60-1.10)
[2017-01-08] MEDS: MORPHINE 2 MG/ML SYRINGE IVP PRN (06:50)
[2017-01-08] MEDS: SODIUM CHLORIDE 1,000 ML IV SCH ×2 (07:00→16:15)
[2017-01-08] MEDS: LEXAPRO PO SCH (09:34)
[2017-01-08] MEDS: NAMENDA PO SCH ×2 (09:35→20:17)
[2017-01-08] MEDS: NEURONTIN PO SCH ×2 (09:36→20:17)
[2017-01-08] MEDS: PLAVIX PO SCH (09:36)
--- NOTE | 2017-01-08 10:28 | PCM.PROG ---
Attending Provider: ATTENDING PROVIDER: Dr. CARLIE ALEXANDER DATE OF SERVICE: 01/08/17 SUBJECTIVE: This 81 year old WHITE/ M was hospitalized 01/06/17. The patient is admitted with health care facility acquired pneumonia and questionable aspiration. He was in shock, which has resolved. He is more awake and alert today. He also came with acute renal failure and hematuria which was noted in [place] bag. Renal function is getting better. The family wants Hospice due to poor health lately and frequent hospitalizations. REVIEW OF SYSTEMS: CONSTITUTIONAL: No fever, no chills. ENDOCRINE: No weight loss or weight gain. HEENT: No sinus drainage, no sore throat. CVS: No angina symptoms. No CHF symptoms. No palpitations. No atypical chest pain for CAD. No shortness of breath. RESPIRATORY: No cough, no hemoptysis. GI: No melena. No abdominal pain. No nausea, no vomiting. : Hematuria. No polyuria. SKIN: No rash. No wounds. MUSCULOSKELETAL: No pain. CLINICAL RN LIAISON: No blackout, no dizziness. No headache. No double vision. PSYCHIATRIC: Not anxious; no depression. No suicidal thoughts. No homicidal thoughts. PHYSICAL EXAMINATION: GENERAL: Lying in bed in no distress. VITAL SIGNS: Temperature 98.2 F, Pulse 91, Respiratory Rate 22, BP 114/60, Pulse Ox 97% HEENT: Normocephalic, atraumatic. Mucosa is dry, pallor positive. NECK: No JVP, no carotid bruit. No lymphadenopathy. CARDIAC: S1, S2, no S3. No murmur, gallop or regurgitation. LUNGS: Clear to auscultation. ABDOMEN: Soft, non-tender. Bowel sounds active. No rigidity, guarding or CVA tenderness. EXTREMITIES: No clubbing, cyanosis or edema. NEUROLOGIC: Awake, alert and oriented x3. LYMPHATIC: No palpable lymph nodes SKIN: Not dry. Intact. MUSCULOSKELETAL: No joint swelling. LAB REVIEW: 01/08/17 04:50 01/08/17 04:50 01/08/17 04:50: WBC 7.11, RBC 2.47 L, Hgb 7.9 L, Hct 24.4 L, MCV 98.8 H, MCH 32.0 H, MCHC 32.4, RDW Coeff of Tabatha 15.6 H, Plt Count 287, Immature Gran % (Auto ) 2.0, Neut % (Auto) 75.9, Lymph % (Auto) 12.2, Giles % (Auto) 8.6, Eos % (Auto) 1.0, Baso % (Auto) 0.3, Immature Gran # (Auto) 0.1, Neut # 5.4, Lymph # 0.9, Giles # 0.6, Eos # 0.1, Baso # 0.0, Sodium 137, Potassium 4.5, Chloride 110 H, Carbon Dioxide 22 L, Anion Gap 9.5, BUN 35 H, Creatinine 1.35 H D, Estimated GFR (MDRD) 51.00, BUN/Creatinine Ratio 25.92, Glucose 95, Calcium 8.4, Total Bilirubin 0.60, AST 26, ALT 14, Alkaline Phosphatase 75, Total Protein 5.1 L, Albumin 1.8 L, Globulin 3.3, Albumin/Globulin Ratio 0.55 ASSESSMENT: 1. Pneumonia, Health Care Facility acquired, questionable aspiration 2. Acute on chronic renal failure 3. Anemia 4. Hematuria 5. CHF 6. COPD 7. Osteoarthritis 8. Recent lumbar spine compression fracture 9. Ischemic dilated cardiomyopathy 10. CAD PLAN: 1. Bedside swallow evaluation 2. 1 unit PRBC 3. Protonix 40 mg b.i.d 4. Stool for occult blood 5. I & O's 6. Continue Levaquin IV fluids and Duonebs Plan and coordination of the patient's care discussed in the presence of Dehydrator Operator and nurse SCRIBED BY: CARLENE BERNSTEIN, Focusing Machine Operator scribed while in presence of service performed by Dr. CARLIE ALEXANDER on 01/08/17 ([id number])
--- NOTE | 2017-01-08 10:46 | HP ---
DATE OF SERVICE: 01/06/17 REASON FOR HOSPITALIZATION: Cough, congestion and fever HISTORY OF PRESENT ILLNESS: The patient is an 81 year old male with multiple medical problem who was recently discharged from the hospital for the Lumbar spine compression fracture and now being admitted to the alf. The alf nurse noticed that patient is having respiratory difficulty, fever of 101 and at that time the patient was sent to the emergency room for the evaluation. He was seen by Dr. Meier. In the process of the evaluation WBC was 20,000 and ABG showed the pH 7.38, pO2 31.9, pO2 47, BUN was 48, creatinine 1.51, sodium 131, potassium was 5.3 and lactic acid was elevated 19.9. CT of the chest was done in the emergency room shows bibasilar consolidation consistent with the pneumonia, small right pleural effusion, chronic obstruction pulmonary disease. At that time the patient was admitted to the hospital with IV antibiotics and breathing treatment and with the sepsis also. He is in shock also with blood pressure of 78/43. REVIEW OF SYSTEMS: CONSTITUTIONAL: No night sweats. Weakness and tiredness . Fever or chills. HEENT: Eyes: No visual changes. No eye pain. No eye discharge. ENT: No runny nose. No epistaxis. No sinus pain. No sore throat. No odynophagia. No ear pain. No congestion. RESPIRATORY: Cough and congestion. No hemoptysis. CARDIOVASCULAR: No angina symptoms. No CHF symptoms. No atypical chest pain for CAD. No palpitations. No shortness of breath. GASTROINTESTINAL: No abdominal pain. No nausea or vomiting. No diarrhea or constipation. No hematemesis. No hematochezia. GENITOURINARY: No urgency. No frequency. No dysuria. No hematuria. No obstructive symptoms. No discharge. No pain. No significant abnormal bleeding. MUSCULOSKELETAL: No musculoskeletal pain. No joint swelling. Arthritis. Lower back pain. NEUROLOGICAL: No headache. No neck pain. No syncope. No seizures. No dizziness. PSYCHIATRIC: Not anxious. No depression. No suicidal thoughts. No homicidal thoughts. SKIN: No rash. No lesions. No wounds. ENDOCRINE: No unexplained weight loss. No weight gain. HEMATOLOGIC/LYMPHATIC: No anemia. No purpura. No petechiae. No prolonged or excessive bleeding. No palpable lymph nodes. PERSONAL/FAMILY/SOCIAL HISTORY: The patient does smoke and occasional alcohol. The patient is and lives at the alf at this time. Family is significant for the high blood pressure. PAST MEDICAL/SURGICAL PROBLEMS: Dilated ischemic cardio myopathy Congestive heart failure Coronary artery disease Hypertension Peripheral vascular disease Dyslipidemia Osteoarthritis Alzheimer's dementia Prostate Cancer Diabetes Depression Anxiety Right knee scope Bypass surgery Cataract surgery MEDICATIONS: Aspirin Hydrocodone Plavix Januvia Albuterol Namenda Claritin Gabapentin Ferrous Sulfate Lexapro Aricept Atorvastatin Dyazide Lisinopril ALLERGIES: Megestrol Penicillin Procaine PHYSICAL EXAMINATION: VITAL SIGNS: Blood pressure 90/40, respiratory rate 20, heart 117 and temperature 101.4 HEENT: Head normocephalic, atraumatic. Eyes: Extraocular muscles are intact. Pupils are equal, round and reactive to light and accommodation. Ears: No lesions. Nose appeared normal. Throat: No exudate or erythema. Mucosa dry. Pallor positive. No icterus. The patient responses to the verbal stimuli and then goes back sleep and the patient has twitching movements all over the body. NECK: Supple. No JVD, no carotid bruit. No lymphadenopathy or thyromegaly. LUNGS: Decreased and basilar crackles. Percussion note normal. Chest symmetrical. HEART: S1, S2, no S3. No murmurs. No cyanosis or clubbing. No ascites. Pulses: Dorsalis pedis and posterior tibial pulses +1 to +2 both sides. ABDOMEN: Soft. Nontender. Bowel sounds active. No CVA tenderness. No mass felt. EXTREMITIES: No edema. Full range of motion of all extremities, equal. NEUROLOGIC: No focal deficit. Cranial nerves II through XII are grossly intact. No headache, no double vision or headache. Response to the verbal stimuli and painful stimuli and then goes back to sleep. SKIN: Not dry. Intact. Turgor - normal. LYMPHATIC: No palpable lymph nodes/no lymphedema. MUSCULOSKELETAL: Normal joints with no swelling. Muscle tone is normal. LABS: WBC 20,000 and came down to 14.04, hgb 9.8, hct 30.8, plt count 350, sodium 131 , potassium 5.2, chloride 103, bicarb 20, BUN 48, creatinine 2.97, U/A is negative for the nitrates, leukocyte esterase positive. ASSESSMENT: 1. Bibasilar pneumonia 2. Hypoxemia secdonary to the pneumonia 3. COPD exacerbation 4. Acute one chronic renal failure 5 Shock from the dehydration and infection 6. History of dilated cardiomyopathy 7. Hypertension 8. Dyslipidemia 9. Diabetes 10.Osteoarthritis 11.Recent lumbar spine compression deformity PLAN: 1. Admit patient to the regular floor 2. Levofloxacin IV 3. Daily DUO NEB 4. Steroids 5. IV fluids 6. Continue home medication 7. Regular diet 8. Daily I&O's Will follow the patient in daily rounds. TIME SPENT: More than 70 minutes. PINKY
--- NOTE | 2017-01-08 11:12 | PN ---
DATE OF SERVICE: 01/07/17 SUBJECTIVE: The patient is more awake and alert. Shortness of breath and breathing difficulty is decreased today. He is on 3 liters nasal cannula and saturation is 92%. The patient's daughter who is the power of environmental attorney is in the room has question that patient is requesting to go home as he doesn't want to stay here anymore and wanting to hospice care in review of his poor condition. REVIEW OF SYSTEMS: CONSTITUTIONAL: No fever, no chills. HEENT: Normal. ENDOCRINE: No weight gain, no weight loss. CVS: No angina symptoms. No CHF symptoms. No palpitations. No atypical chest pain for CAD. No shortness of breath. No PND, no orthopnea. RESPIRATORY: No cough, no hemoptysis. GI: No nausea, no vomiting. No abdominal pain. : No hematuria. No polyuria. MUSCULOSKELETAL:. No joint swelling. PSYCHIATRIC: Not anxious. No depression. No suicidal thoughts. No homicidal thoughts. SKIN: Intact. No rash. PHYSICAL EXAMINATION: V/S: Blood pressure 108/54, respiratory rate 20, heart rate 98, temperature 98.5. HEENT: Normocephalic, atraumatic. Mucosa dry. Pallor positive. No icterus. NECK: Supple. No JVD, no carotid bruit. No lymphadenopathy. LUNGS: Decreased and basilar crackles. No rales or rhonchi. HEART: S1, S2 normal. No S3. No murmur, gallop or regurgitation. ABDOMEN: Soft, nontender. Bowel sounds active. No rigidity. No rebound or guarding. No CVA tenderness. EXTREMITIES: No clubbing, cyanosis or pedal edema. MUSCULOSKELETAL: No joint swelling. NEUROLOGIC: Awake, alert, oriented times three. No focal deficit. LYMPHATIC: No lymph nodes palpable. SKIN: Intact. LABS: WBC 10.97, hgb 8.5, hct 26.4, plt count 274, sodium 134, potassium 4.9, chloride 104, bicarb 20, BUN 52, creatinine 2.14. ASSESSMENT: 1. Status post respiratory distress secondary to pneumonia 2. Community acquired and health care facility acquired pneumonia 3. Acute on chronic renal failure 4. Hypoxemia which is better 5. History of dilated cardiomyopathy 6. Dyslipidemia 7. Osteoarthritis 8. DJD Spine 9. Diabetes PLAN: 1. After a thorough discussion with the family and patient is willing to go to home. The patient is recommending the Hospice and comfort measures. Hospice will be called. 2. Will continue with Morphine every 2-4 hours 3. Levaquin IV 4. Breathing treatments 5. Daily I&O's. TIME SPENT: More than 30 minutes MTDD
--- NOTE | 2017-01-08 13:34 | RS.BEDDYS ---
Subjective Number of treatment sessions: 1 Date of Evaluation: 01/08/17 Date of Onset/Injury/Change in Status: 01/06/17 Treatment Diagnosis: pnuemonia Prior Level of Function.....Patient was independent with: Caregiving (Pt had been living with however recently been admitted to a jail after a fall resulting in a lumbar fraction. Pt required assistance at this time for, ADLs, mobility. Pt was independent with eating and swallowing.) Current Level of Function: This 81 year old male was admitted to the hospital due to respiratory difficulty and fever of 101. Chest CT revealed bibasilar consolidation consistent with pneumonia and right pleural effusion. Pt has no hx of dysphagia or cognitive impairments. Pt was recently hospitalized for lumabar spine compression fracture and was placed in a jail. Pt's family is concerned with medical prognosis at this time and is determining best options for quality of life. Current Diet: Liquid diet texture until MD or PIE MAKER advances diet. Current Subjective/complaints:: Pt reported complaints of fatigue and back pain. Pt was cooperative for skilled ST services. PIE MAKER noted pt with congested cough, which pt reported was productive, but not productive during time of evaluation. Pt verbalized appropriate answers to questions 75% of evaluation, requiring some verbal cueing. Pt demonstrates moderate difficulty with bed mobility. Medical History Comments:: pnuemonia, acute renal failure, anemia, hematourai, CHF, COPD, CAD, recent lumbar spine compression fracture. Hx Home Medications: Refer to medications for complete and current list. Patient's Goals: Pt wants to eat and drink. PIE MAKER to have pt on safest and least restrictive diet texture. General Information - General Denture Type: Full- Upper Patient Orientation: Person Ability to Follow Directions: Good - Voice Voice Quality: Hoarse, Weak Voice Loudness: Moderately Soft/Quiet Oral-Facial Assessment - Face Facial Symmetry: Symmetrical Facial Movement: Controlled - Dental/Labial Mouth Occlusion: Normal Teeth Comment: No bottom dentures, two broken teeth. Lip Protrusion: Weak Puff Cheeks: Reduced Strength - Lingual Protrusion: Normal Retraction: Normal Tip Lateralization: Weak Repeated Tip Lateralization: Weak Tip Elevation: Reduced ROM Repeated Tip Elevation: Reduced ROM Food Presentation - Solids Food Presented: Mechanical Soft (Via debo cracker, finger food) Behaviors/Comments: PIE MAKER presented finger food to pt. Pt took appropriate size bite independently. Prolonged mastication with decreased rotary chew. Moderate difficulty with bolus formation, mild oral stasis. Minimal residue, cleared with liquid wash. Pt demonstrated fatigue and lack of appetite, did not want to consume any other food trials. No overt s/s of aspiration. Food Presented: Pureed (via spoon. No difficulty.) - Liquids Liquid Presented: Thin (via open cup and straw.) Behaviors/Comments: PIE MAKER presented open cup to pt for independent drink. Pt had immediate cough, O2 sats dropped 2-3 numbers, pt demonstrated SOB, and runny nose. 2-3 second delay in swallow initiation noted as well as audible swallow. PIE MAKER suspects possible aspiration and silent aspiration with thin liquids. Liquid Presented: Canyon (Via open cup) Behaviors/Comments: PIE MAKER presented nectar liquids via cup. Pt independently took 4 drinks with no overt s/s of aspiration. - Recommendations: Dysphagia Evaluation Dietary Recommendations: Dysphagia Mechanical Soft (No meat. Pt to have meltables, fork-mashed foods, and extra soft foods. ), Canyon- thick liquids Comments:: Pt to have semi-solids, dysphagia soft food items, not mechanical soft diet texure. No meat texture at this time. All foods to be easily mashed with fork, extra condiments. Dysphagia Swallow Precautions/Strategies: Sitting Upright (90 deg), Liquids from Cup, Small Bites and Sips Comments:: Pt to have supervision and meal set-up assistance to facilitate PO intake and decrease risk for choking incident. Pt safe with recommended texture , however due to fatigue, intermittent supervision will increase alertness. - Summary Dysphagia Evaluation Summary: Pt with oropharyngeal dysphagia as characterized by weak lingual movements, possible decreased laryngeal sensation, poor laryngeal elevation, no laryngeal excursion, swallow delay, cough with thin liquids, drop in O2 sats with possible silent aspiration. PIE MAKER recommends semi- solids with soft diet texture, no meats, intermittent supervision, meal set-up assistance, medications in applesauce or pudding. Nursing to monitor PO intake, pt's alertness for PO, and lung sounds for improvements. When improved, possible diet upgrade from PIE MAKER. Pt is at risk for aspiraiton with thin liquids and regular diet texture. Further Therapy Indicated?: Yes Comments: To monitor safety with PO intake, upgrade diet texture to safest and least restrictive diet texture. Rehab Potential: Fair Functional Reporting G Codes: Current CK Goal CJ Severity Impairment Rationale: Pt on mechanical soft diet texture with nectar thick liquids with risk of silent aspiration. Short Term Goals Problem: Lingual weakness Goal #1: Pt to tolerate trials of mechanical soft diet texture w/o s/s of aspiration Goal to be met by: 01/12/17 Problem: Swallowing Goal #2: Pt to tolerate thin liquids without overt s/s of aspiration Goal to be met by: 01/12/17 Senior Care Goals Problem: Swallowing Goal #1: Pt tolerates PO intake without overt s/s of aspiration. Goal to be met by: 01/12/17 Plan Duration of Treatment: 1 Week Frequency of Treatment: 1-2 X day, as tolerated Anticipated Discharge Destination: [facility]
[2017-01-08 16:37] LABS: HEMATOCRIT 29.9 % (42.0-52.0); HEMOGLOBIN 9.6 g/dl (14.0-18.0)
[2017-01-08 17:41] LABS: OCCULT BLOOD INTERNAL QC 1 INTERNAL QC VALID; OCCULT BLOOD SAMPLE 1 NEGATIVE (NEGATIVE)
[2017-01-08] MEDS: PROTONIX PO SCH (17:47)
[2017-01-08] MEDS: LEVAQUIN 250 MG in PREMIX 50 ML D5W 1 BAG IV SCH (20:17)
[2017-01-08] MEDS: LIPITOR PO SCH (20:17)
[2017-01-08] MEDS: FERROUS SULFATE PO SCH (20:17)
[2017-01-08] MEDS: HUMULIN R SUBCUT PRN (20:52)
[2017-01-09 00:13] LABS: OCCULT BLOOD INTERNAL QC 2 INTERNAL QC VALID; OCCULT BLOOD INTERNAL QC 3 INTERNAL QC VALID; OCCULT BLOOD SAMPLE 2 NO SPECIMEN RECEIVED (NEGATIVE); OCCULT BLOOD SAMPLE 3 NO SPECIMEN RECEIVED (NEGATIVE)
[2017-01-09] MEDS: DUONEB NEB SCH ×4 (01:07→14:28)
[2017-01-09 04:53] LABS: BASOPHILS % (AUTO) 0.4 % (0.0-3.0); EOSINOPHILS # (AUTO) 0.1 K/ul (0.0-0.7); EOSINOPHILS % (AUTO) 1.2 % (0.0-7.0); HEMATOCRIT 28.4 % (42.0-52.0); LYMPHOCYTES # (AUTO) 1.4 K/uL (0.60-3.4); LYMPHOCYTES % (AUTO) 20.8 (10.0-50.0); MEAN CORPUSCULAR HEMOGLOBIN 30.4 pg (27.0-31.0); MEAN CORPUSCULAR HGB CONC 31.7 (31.8-35.4); MEAN CORPUSCULAR VOLUME 95.9 fl (80.0-94.0); MONOCYTES # (AUTO) 0.7 K/uL (0.4-2.0); MONOCYTES % (AUTO) 10.2 (0-10); NEUTROPHILS # (AUTO) 4.4 K/ul (2.0-6.9); NEUTROPHILS % (AUTO) 66.4; PLATELET COUNT 277 10^3/uL (140-440); RED BLOOD COUNT 2.96 10^6/ul (4.70-6.10); WHITE BLOOD COUNT 6.69 K/ul (4.2-10.2)
[2017-01-09 05:19] LABS: ALBUMIN 1.7 g/dL (3.4-5.0); ALBUMIN/GLOBULIN RATIO 0.52; ANION GAP 9.9; BILIRUBIN,TOTAL 0.83 mg/dL (0.00-1.20); BUN/CREATININE RATIO 19.41; CALCIUM 8.4 mg/dL (8.2-10.2); CREATININE 1.03 mg/dL (0.60-1.10); POTASSIUM 3.9 mmol/L (3.5-5.1)
[2017-01-09] MEDS: PROTONIX PO SCH (05:34)
[2017-01-09] MEDS: SODIUM CHLORIDE 1,000 ML IV SCH (05:35)
[2017-01-09 05:39] VITALS: BP 119/79; TEMP 97.9
[2017-01-09] MEDS: LEXAPRO PO SCH (09:53)
[2017-01-09] MEDS: NAMENDA PO SCH (09:54)
[2017-01-09] MEDS: NEURONTIN PO SCH (09:54)
[2017-01-09] MEDS: PLAVIX PO SCH (09:55)
--- NOTE | 2017-01-09 11:21 | PCM.PROG ---
Attending Provider: ATTENDING PROVIDER: Dr. CARLIE ALEXANDER DATE OF SERVICE: 01/09/17 SUBJECTIVE: This 81 year old WHITE/ M was hospitalized 01/06/17. The patient is breathing better. He is more awake and alert today. He states he did not rest well last night. The patient is ready for discharge. REVIEW OF SYSTEMS: CONSTITUTIONAL: Weakness, tiredness. No fever, no chills. ENDOCRINE: No weight loss or weight gain. HEENT: No sinus drainage, no sore throat. CVS: No angina symptoms. No CHF symptoms. No palpitations. No atypical chest pain for CAD. No shortness of breath. RESPIRATORY: No cough, no hemoptysis. GI: No melena. No abdominal pain. No nausea, no vomiting. : No hematuria. No polyuria. SKIN: No rash. No wounds. MUSCULOSKELETAL: No pain. ENGLISH COMPOSITION INSTRUCTOR: No blackout, no dizziness. No headache. No double vision. PSYCHIATRIC: Not anxious; no depression. No suicidal thoughts. No homicidal thoughts. PHYSICAL EXAMINATION: GENERAL: Lying in bed in no distress. VITAL SIGNS: Temperature 97.9 F, Pulse 93, Respiratory Rate 20, BP 119/79, Pulse Ox 99% HEENT: Normocephalic, atraumatic. Mucosa is dry, pallor positive. NECK: No JVP, no carotid bruit. No lymphadenopathy. CARDIAC: S1, S2, no S3. No murmur, gallop or regurgitation. LUNGS: Clear to auscultation. ABDOMEN: Soft, non-tender. Bowel sounds active. No rigidity, guarding or CVA tenderness. EXTREMITIES: No clubbing, cyanosis or edema. NEUROLOGIC: Awake, alert and oriented to person and place. LYMPHATIC: No palpable lymph nodes SKIN: Not dry. Intact. MUSCULOSKELETAL: No joint swelling. LAB REVIEW: 01/09/17 04:52 01/09/17 04:52 01/09/17 04:52: WBC 6.69, RBC 2.96 L, Hgb 9.0 L, Hct 28.4 L, MCV 95.9 H, MCH 30.4, MCHC 31.7 L, RDW Coeff of Tabatha 17.3 H, Plt Count 277, Immature Gran % (Auto ) 1.0, Neut % (Auto) 66.4, Lymph % (Auto) 20.8, Clare % (Auto) 10.2 H, Eos % ( Auto) 1.2, Baso % (Auto) 0.4, Immature Gran # (Auto) 0.1, Neut # 4.4, Lymph # 1.4, Clare # 0.7, Eos # 0.1, Baso # 0.0, Sodium 138, Potassium 3.9, Chloride 111 H, Carbon Dioxide 21 L, Anion Gap 9.9, BUN 20 H, Creatinine 1.03, Estimated GFR (MDRD) 69.00, BUN/Creatinine Ratio 19.41, Glucose 92, Calcium 8.4, Total Bilirubin 0.83, AST 43 H, ALT 30, Alkaline Phosphatase 83, Total Protein 5.0 L, Albumin 1.7 L, Globulin 3.3, Albumin/Globulin Ratio 0.52 01/08/17 17:00: Stl Occult Blood (IFOB) Negative, Stool Occult Blood #2 No specimen received, Stool Occult Blood #3 No specimen received 01/08/17 16:30: Hgb 9.6 L, Hct 29.9 L 01/08/17 09:40: Blood Type A POSITIVE, Antibody Screen Negative, Crossmatch (AHG ) See Detail ASSESSMENT: 1. Pneumonia, health care facility acquired, questionable aspiration, better 2. Acute on chronic renal failure 3. Anemia 4. Hematuria 5. CHF 6. COPD 7. Osteoarthritis 8. Recent lumbar spine compression fracture 9. Ischemic dilated cardiomyopathy 10. CAD PLAN: 1. Hydrocodone 5 mg t.i.d. 2. Keflex 500 mg b.i.d. times 7 days 3. Duonebs t.i.d. 4. Prednisone 10 mg b.i.d. times 5 days 5. PT/OT evaluate and treat 6. May participate in retirement activities. 7. D/C [place] Plan and coordination of the patient's care discussed in the presence of Record Searcher and nurse. CONDITION: Stable SCRIBED BY: CARLENE BERNSTEIN Branch Chief scribed while in presence of service performed by Dr. CARLIE ALEXANDER on 01/09/17 ([id number])
--- NOTE | 2017-01-09 12:28 | CM.DICTOOL ---
ADMISSION: 01/06/17 00:27 DISCHARGE: January 09, 2017 DATE OF SERVICE: 01/09/17 FINAL DIAGNOSIS Pneumonia Sepsis Hypoxemia COPD Acute Kidney Injury Dehydration Anemia, transfusion of one unit packed cells Diabetes Osteoarthritis Dyslipidemia History of Dilated Cardiomyopathy Hypertension CAD with stent application Recent compression fracture, L1 CABG, 1992 LAST VITALS Temp Pulse Resp BP Pulse Ox 97.9 F 93 H 20 119/79 99 01/09/17 05:39 01/09/17 05:39 01/09/17 05:39 01/09/17 05:39 01/09/17 05:39 ACTIVE HOME MEDICATIONS Atorvastatin Calcium (Lipitor) 10 mg PO BEDTIME [facility] Last Admin: 01/08/17 20:17 Dose: 10 mg Clopidogrel Bisulfate (Plavix) 75 mg PO DAILY [facility] Last Admin: 01/09/17 09:55 Dose: 75 mg Escitalopram Oxalate (Lexapro) 20 mg PO DAILY [facility] Last Admin: 01/09/17 09:53 Dose: 20 mg Ferrous Sulfate (Ferrous Sulfate) 324 mg PO BEDTIME [facility] Last Admin: 01/08/17 20:17 Dose: 324 mg Gabapentin (Neurontin) 300 mg PO BID [facility] Last Admin: 01/09/17 09:54 Dose: 300 mg Memantine (Namenda) 10 mg PO BID [facility] Last Admin: 01/09/17 09:54 Dose: 10 mg Aspirin EC 81 mg Daily with meal Last Admin: Hydrocodone-Acetaminophen 5-325 1 tab TID Last Admin: Donepezil HCL 10 mg Daily Last Admin: Loratadine 10 mg Daily Last Admin: ALLERGIES megestrol [From Megace] Adverse Reaction (Mild, Verified 01/06/17 00:17) Diarrhea Penicillins Adverse Reaction (Unknown, Verified 01/06/17 00:17) Unknown procaine [From Novocain] Adverse Reaction (Unknown, Verified 01/06/17 00:17) Unknown NEW PRESCRIPTIONS: Keflex 500 mg BID for 7 days Prednisone 10 mg BID for 5 days Duonebs TID SMOKING: Not Applicable DISEASE SPECIFIC EDUCATION: Nutrition Medication Therapy LAB REVIEW: 01/09/17 04:52 01/09/17 04:52 01/09/17 04:52: WBC 6.69, RBC 2.96 L, Hgb 9.0 L, Hct 28.4 L, MCV 95.9 H, MCH 30.4, MCHC 31.7 L, RDW Coeff of Tabatha 17.3 H, Plt Count 277, Immature Gran % (Auto ) 1.0, Neut % (Auto) 66.4, Lymph % (Auto) 20.8, [place] % (Auto) 10.2 H, Eos % ( Auto) 1.2, Baso % (Auto) 0.4, Immature Gran # (Auto) 0.1, Neut # 4.4, Lymph # 1.4, [place] # 0.7, Eos # 0.1, Baso # 0.0, Sodium 138, Potassium 3.9, Chloride 111 H, Carbon Dioxide 21 L, Anion Gap 9.9, BUN 20 H, Creatinine 1.03, Estimated GFR (MDRD) 69.00, BUN/Creatinine Ratio 19.41, Glucose 92, Calcium 8.4, Total Bilirubin 0.83, AST 43 H, ALT 30, Alkaline Phosphatase 83, Total Protein 5.0 L, Albumin 1.7 L, Globulin 3.3, Albumin/Globulin Ratio 0.52 01/08/17 17:00: Stl Occult Blood (IFOB) Negative, Stool Occult Blood #2 No specimen received, Stool Occult Blood #3 No specimen received 01/08/17 16:30: Hgb 9.6 L, Hct 29.9 L 01/08/17 09:40: Blood Type A POSITIVE, Antibody Screen Negative, Crossmatch (G ) See Detail PLAN: Discharge to [facility] MEDICATION CHANGES 1. Decrease Lisinopril to 5 mg daily 2. Decrease Sitagliptin (Januvia) to 25 mg daily 3. Stop Albuterol nebs for now and give Duonebs $. Decrease Dyazide to Every Other Day Diet: Dysphagia Soft Mechanical; fork mashed foods, and extra soft foods. Liquids should be nectar thick per recommendation of Speech Therapist. Patient should eat sitting upright at 90 degrees, liquid from cup, small bites and sips. Encourage patient to feed self. Activity: up to chair for meals Oxygen per nasal cannula at 2 liters prn Oxygen saturation daily. Apply oxygen if saturations below 90%. Encourage turning every 2 hours Incontinent care every 2 hours Skin precautions for decubitus ulcers The patient is DNR Physical and Occupational Therapy consult and treat Speech therapy consult and treat Dietitian consultation for optimal nutritional intake CBC, CMP in one week, then monthly Dr. Mortensen to see on long-term rounds in 7-10 days Mr. Patino is alert to person. He is disoriented to time and place. He is forgetful. He is independent with feeding, but requires encouragement to eat and drink. Meal intakes have been poor, consuming 15% of the breakfast today. He is able to transfer to the chair with assistance of 2 staff members. A small abrasion is noted to the upper gluteal crease. Redness is noted to the scrotum. Calmoseptine ointment is applied to the gluteal crease and scrotum. The campos catheter was removed today with patient voiding x 1. Rocael Mortensen MD
--- NOTE | 2017-02-21 14:22 | DS ---
DATE OF SERVICE: 01/09/17 FINAL DIAGNOSIS: 1. PNEUMONIA 2. SEPSIS 3. HYPOXEMIA 4. CHRONIC OBSTRUCTIVE PULMONARY DISEASE 5. ACUTE KIDNEY INJURY 6. DEHYDRATION 7. ANEMIA, TRANSFUSION OF ONE UNIT PACKED CELLS 8. DIABETES 9. OSTEOARTHRITIS 10. DYSLIPIDEMIA 11. HISTORY OF DILATED CARDIOMYOPATHY 12. HYPERTENSION 13. CORONARY ARTERY DISEASE WITH STENT APPLICATION 14. RECENT COMPRESSION FRACTURE OF L1 15. CABG 1992 VITALS AT DISCHARGE: Temperature 97.9, pulse 93, respiratory rate 20, blood pressure 119/79, pulse oximetry 99. PLAN: 1. Discharge to [facility]. 2. Decrease Lisinopril to 5 mg daily. 3. Decrease Januvia to 25 mg daily. 4. Stop Albuterol nebs for now and give DuoNebs. 5. Decrease Dyazide to every other day. 6. Oxygen per nasal cannula at 2 liters prn 7. Oxygen saturation daily. Apply oxygen if saturations below 90%. 8. Encourage turning every 2 hours. 9. Incontinent care every 2 hours. 10. Skin precautions for decubitus ulcers. 11. The patient is DNR. 12. Physical and Occupational therapy consult and treat. 13. Speech therapy consult and treat. 14. Dietitian consultation for optimal nutritional intake. 15. Dr. Mortensen to see on snf rounds in 7-10 days. 16. CBC, CMP in one week and then monthly. MEDICATIONS AT DISCHARGE: Lipitor 10 mg p.o. bedtime Plavix 75 mg p.o. daily Lexapro 20 mg p.o. daily Ferrous sulfate 324 mg p.o. bedtime Neurontin 300 mg p.o. twice daily Namenda 10 mg p.o. twice daily Aspirin 81 mg daily Hydrocodone/Acetaminophen 5/325 mg one three times daily Donepezil 10 mg daily Loratadine 10 mg daily ALLERGIES: Megestrol, Penicillin and Novocain. NEW PRESCRIPTIONS: Keflex 500 mg twice daily for seven days Prednisone 10 mg twice daily for five days Duoneb DIET INSTRUCTIONS: Dysphagia soft mechanical; fork mashed foods and extra soft foods. Liquids should be nectar thick per recommendation of Speech Therapist. The patient should eat sitting upright at 90 degrees. Liquid from a cup, small bites and sips. Encourage to feed self. ACTIVITY: Up to chair for meals. DISEASE SPECIFIC EDUCATION: Carried out about nutrition, medication and therapy. LABS: RBC 2.96, hemoglobin 9.0, hematocrit 28.4, MCV 95.9, MCHC 31.7, RDW COeff of Tabatha 17.3, Cross% 10.2, sodium 138, potassium 3.9, chloride 111, carbon dioxide 21, BUN 20, AST 43, Total protein 5.0, albumin 1.7. HOSPITAL COURSE: The patient was admitted on 01/06/2017 and discharged on 01/09. He was recently discharged from the hospital by Dr. Bright after admitting for the pneumonia. The patient went home and was not able to walk or get up. The patient's family brought him back saying as the patient was not able to live by himself, they would need a lot of help. He was admitted back to the hospital. White count was 20,000. CT of the chest showed bibasilar consolidation consistent with the pneumonia and right pleural effusion and COPD. Urine is positive for leukocyte esterase. The patient was given Lovenox for the DVT prophylaxis. DuoNebs and Solu-Medrol was given. Levaquin was given IV with generous IV fluids. The patient has dropped the hemoglobin to 8.5. Type and screen and one unit was given. Stool for occult blood test was negative. BUN and creatinine improved a lot from 48 and 2.97 to 20 and 1.03. He still was having a lot of weakness and tiredness. At that time, the patient was evaluated for the snf and discharged to [facility] as per the patient's family. Time spent on the patient is more than 55 minutes today. [facility]
== END 2017-01-09 15:55 | disposition short-term general hospital (02) | DRG 193 ==
LOC: ED 21:36 → SCU 01-06 00:27
PROVIDERS: ADMIT Emergency Medicine; ATTEND Emergency Medicine
PROC: 30233N1 Transfusion of Nonautologous Red Blood Cells into Peripheral Vein, Percutaneous Approach (ICD-10-PCS; principal; 2017-01-08)
DX: J18.9 Pneumonia, unspecified organism (principal); J96.01 Acute respiratory failure with hypoxia; A41.9 Sepsis, unspecified organism; N17.9 Acute kidney failure, unspecified; R57.9 Shock, unspecified; I42.0 Dilated cardiomyopathy; J44.9 Chronic obstructive pulmonary disease, unspecified; I12.9 Hypertensive chronic kidney disease with stage 1 through stage 4 chronic kidney disease, or unspecified chronic kidney disease; N18.9 Chronic kidney disease, unspecified; E86.0 Dehydration; D64.9 Anemia, unspecified; E11.9 Type 2 diabetes mellitus without complications; I10 Essential (primary) hypertension; I25.10 Atherosclerotic heart disease of native coronary artery without angina pectoris; I25.5 Ischemic cardiomyopathy; R31.9 Hematuria, unspecified; M19.90 Unspecified osteoarthritis, unspecified site; M47.9 Spondylosis, unspecified; Y95 Nosocomial condition; Z79.02 Long term (current) use of antithrombotics/antiplatelets; Z79.899 Other long term (current) drug therapy; Z95.5 Presence of coronary angioplasty implant and graft; Z87.311 Personal history of (healed) other pathological fracture; Z95.1 Presence of aortocoronary bypass graft
CPT/HCPCS: 36415; 36430; 80053; 81001; 82272; 82803; 82962; 83605; 84145; 85014; 85018; 85025; 86850; 86900; 86922; 87040; 87081; 87086; 93005; 93010; 94640; 96360; 96361; 99285

== ENCOUNTER 2017-01-12 16:22 | Outpatient (CLI) | payer OTHER | END 2017-01-12 16:23 | disposition home or self-care (01) | LOC: AMBL 16:22 | PROVIDERS: ATTEND Internal Medicine | DX: M25.552 Pain in left hip (principal); M25.551 Pain in right hip; M54.5 Low back pain; W05.0XXA Fall from non-moving wheelchair, initial encounter; Y92.122 Bedroom in nursing home as the place of occurrence of the external cause ==

== ENCOUNTER 2018-05-03 18:52 | Outpatient (CLI) | END 2018-05-03 18:53 | disposition home or self-care (01) | LOC: LAB 18:52 | PROVIDERS: ATTEND Internal Medicine | DX: N18.9 Chronic kidney disease, unspecified (principal) | CPT/HCPCS: 81001; 87086 ==

== ENCOUNTER 2018-05-16 12:17 | Outpatient (CLI) | payer OTHER | END 2018-05-16 12:35 | disposition short-term general hospital (02) | LOC: AMBL 12:17 | PROVIDERS: ATTEND Emergency Medicine | DX: M25.552 Pain in left hip (principal); S41.112A Laceration without foreign body of left upper arm, initial encounter; W19.XXXA Unspecified fall, initial encounter ==